=== PATIENT | male | born 1950 | race Caucasian/White ===

== ENCOUNTER → 2019-10-04 10:10 | Outpatient (BNVA) | payer MEDICARE, MEDICAID, SELFPAY | PROVIDERS: Family Provider Nurse Practitioner Family; PCP Nurse Practitioner Family; Visit Provider Orthopaedic Surgery | DX: M25.569 Pain in unspecified knee (principal); G89.29 Other chronic pain | CPT/HCPCS: 73560; 73565; 84550 ==

== ENCOUNTER → 2019-10-29 11:28 | Outpatient (BNVA) | payer MEDICARE, MEDICAID, SELFPAY | PROVIDERS: Family Provider Nurse Practitioner Family; PCP Nurse Practitioner Family; Referring Provider Nurse Practitioner Family; Visit Provider Internal Medicine Rheumatology | DX: M45.9 Ankylosing spondylitis of unspecified sites in spine (principal); Z79.899 Other long term (current) drug therapy; M10.9 Gout, unspecified; M15.9 Polyosteoarthritis, unspecified | CPT/HCPCS: 99213 ==

== ENCOUNTER → 2020-02-04 13:16 | Outpatient (BNVA) | payer MEDICARE, MEDICAID, SELFPAY | PROVIDERS: Family Provider Nurse Practitioner Family; PCP Nurse Practitioner Family; Visit Provider Internal Medicine Rheumatology | DX: Z79.899 Other long term (current) drug therapy (principal); Z11.59 Encounter for screening for other viral diseases; Z72.89 Other problems related to lifestyle | CPT/HCPCS: 36415; 80076; 82565; 84550; 85025; 85651; 86140; 86704; 86803; 87340 ==

== ENCOUNTER → 2020-02-25 10:58 | Outpatient (BNVA) | payer MEDICARE, MEDICAID, SELFPAY | PROVIDERS: Family Provider Nurse Practitioner Family; PCP Nurse Practitioner Family; Visit Provider Specialist | DX: R20.0 Anesthesia of skin (principal); R20.2 Paresthesia of skin; F17.210 Nicotine dependence, cigarettes, uncomplicated | CPT/HCPCS: 95909 ==

== ENCOUNTER 2020-03-26 10:22 | Outpatient (CLI) | payer MEDICARE, MEDICAID, SELFPAY ==
--- NOTE | 2020-03-26 10:27 | USCV_ITS ---
Eloy Dyer Age: 69 Gender: M : 1950 Exam Date: 03/26/2020 10:38 Ordering Phys: Franky Elam MD (Andy) ([email or web address] [email or web address]) Technologist: Brenda Ruiz [place] [facility] [place]ication: CAROTID STENOSIS Risk Factors: Unknown Previous Vascular Surgery: R CEA, L CEA Right Brachial BP: / Left Brachial BP: / Right Left Velocity (cm/s) Spectral Plaque Velocity (cm/s) Spectral Plaque Syst/Diast Broadening Syst/Diast Broadening 59.70/ 9.20 Prox CCA 73.70 / 11.80 45.50/ 8.60 Mid CCA 73.70 / 11.80 45.60/ 9.10 Distal CCA 51.00 / 10.20 43.30/ 11.40 Prox ICA 66.40 / 13.40 59.30/ 17.00 Mid ICA 63.10 / 12.10 71.30/ 18.50 Distal ICA 55.40 / 15.70 275.50 ECA 112.60 1.57 ICA/CCA 0.90 Antegrade Vertebral Antegrade 37.40/ 7.80 cm/s 59.80/ 12.40 cm/s Tri Subclavian Tri 209.6 144.5 0 0 FINDINGS Minimal plaques bilaterally at the bifurcations and proximal internal carotid arteries Intimal thickening in the common carotid arteries bilaterally Antegrade flow in the vertebral arteries bilaterally Elevated Doppler velocities in the right external carotid and subclavian arteries CONCLUSIONS Minimal plaques at the bifurcations and proximal internal carotid arteries bilaterally. Elevated velocity in the right external carotid and subclavian arteries may suggest hemodynamically significant stenosis Consider CTA, to better evaluate the aortic arch vessels, if clinically indicated Compared to the study from 03/14/2019, the elevated velocity in the right subclavian artery appears to be new Dr Bryan Lee MD [facility] (Electronically Signed) Final Date: 26 March 2020 19:52 S
== END 2020-03-26 10:23 | disposition home or self-care (01) ==
LOC: RAD 10:24
PROVIDERS: PCP Nurse Practitioner Family; Visit Provider Internal Medicine Cardiovascular Disease
DX: I65.23 Occlusion and stenosis of bilateral carotid arteries (principal)
CPT/HCPCS: 93880

== ENCOUNTER 2020-04-16 07:10 | Outpatient (CLI) | payer MEDICARE, MEDICAID, SELFPAY ==
--- NOTE | 2020-04-16 07:20 | CT_ITS ---
WS: [id number] CT ABDOMEN AND PELVIS WITH AND WITHOUT CONTRAST HISTORY: RENAL CELL CANCER TECHNIQUE: Unenhanced 5 mm axial imaging first performed through the abdomen. Post contrast imaging t hrough the abdomen and pelvis. Oral contrast has not been provided. Sagittal and coronal reformats a re submitted. All CT scans at [facility] use at least one of these dose optimization tech niques: automated exposure control; mA and/or kV adjustment per patient size (includes targeted exams where dose is matched to clinical indication); or iterative reconstruction. CONTRAST: Omnipaque 300; 95 mL IV. DLP: 4456.76 mGy.cm COMPARISON: 06/14/2019 Lung bases are clear. Mild enlargement of the LEFT heart chambers. Dual lead pacer wires are noted in the RIGHT heart. No significant hiatal hernia. Liver and spleen are normal size. A few scattered splenic granulomata. Gallbladder is slightly contra cted without adjacent inflammation. Mild atrophy of the pancreas. There are several calcifications at the pancreatic head which may be related to prior pancreatitis. No interval change. No adrenal mass. Extensive atherosclerosis aorta and the mesenteric arteries. Heavy calcification continues into the common iliac arteries bilaterally. RIGHT kidney: Very mild cortical thinning of the RIGHT kidney. Too small to characterize hypodensitie s in the kidney seen best on the delayed imaging posteriorly. No mass or obstruction. There are a few vascular calcifications in the central pelvis. LEFT kidney: Very mild cortical thinning of the LEFT kidney. Vascular calcifications in the central p gael. There is a lobulated solid fat-containing mass from the inferior pole measuring 2.0 x 1.9 cm. Very minimal enhancement. No increase in size since the prior examination. Mass has decreased in size since the runoff examination from 2017. Bilateral history this mass is undergone cryoablation and is a known renal cell carcinoma. No adenopathy or ascites. Moderate fecal retention throughout the colon. The appendix is normal. Well-distended urinary bladder with no intraluminal filling defect. Advanced degenerative changes thr oughout the lumbar spine. RIGHT femoral bypass graft is identified proximally. CT/CT abdomen pelvis wo/w [id number] IMPRESSION: 1. Stable size of the exophytic fat-containing or necrotic mass in the inferio r pole LEFT kidney measuring 2.0 x 1.9 cm. By history this mass has undergone p rior cryoablation. Mass has decreased in size since 06/20/2017 evaluation. No pr ogression or new mass. 2. Extensive atherosclerosis aorta, mesenteric arteries and iliac arteries.
[2020-04-16 08:05] LABS: Blood Urea Nitrogen 17 mg/dL (8-23); Glomerular Filtration Rate 54.7 mL/min (90-130)
[2020-04-16] MEDS: iohexol 350 mg/mL 100 mL Btl IV (08:45)
== END 2020-04-16 07:11 | disposition home or self-care (01) ==
PROVIDERS: PCP Nurse Practitioner Family; Visit Provider Urology
DX: C64.9 Malignant neoplasm of unspecified kidney, except renal pelvis (principal); N28.89 Other specified disorders of kidney and ureter; I70.0 Atherosclerosis of aorta; K55.1 Chronic vascular disorders of intestine; I70.8 Atherosclerosis of other arteries; R97.20 Elevated prostate specific antigen [PSA]
CPT/HCPCS: 36415; 74178; 81001; 82565; 84153; 84520

== ENCOUNTER → 2020-05-28 13:01 | Outpatient (BNVA) | payer MEDICARE, MEDICAID, SELFPAY | PROVIDERS: PCP Nurse Practitioner Family; Visit Provider Internal Medicine Rheumatology | DX: Z79.899 Other long term (current) drug therapy (principal) | CPT/HCPCS: 36415; 80076; 82565; 85025; 85651; 86140 ==

== ENCOUNTER → 2020-06-02 10:39 | Outpatient (BNVA) | payer MEDICARE, MEDICAID, SELFPAY | PROVIDERS: PCP Nurse Practitioner Family; Visit Provider Internal Medicine Rheumatology | DX: M45.9 Ankylosing spondylitis of unspecified sites in spine (principal); Z79.899 Other long term (current) drug therapy; Z15.89 Genetic susceptibility to other disease; N28.89 Other specified disorders of kidney and ureter; G56.00 Carpal tunnel syndrome, unspecified upper limb; F17.210 Nicotine dependence, cigarettes, uncomplicated | CPT/HCPCS: 99214 ==

== ENCOUNTER → 2020-07-08 10:55 | Outpatient (BNVA) | payer MEDICARE, MEDICAID, SELFPAY | PROVIDERS: PCP Nurse Practitioner Family; Referring Provider Nurse Practitioner Family; Visit Provider Specialist | DX: M25.522 Pain in left elbow (principal) | CPT/HCPCS: 73080 ==

== ENCOUNTER → 2020-07-15 10:23 | Outpatient (BNVA) | payer MEDICARE, MEDICAID, SELFPAY | PROVIDERS: PCP Nurse Practitioner Family; Visit Provider Internal Medicine | DX: Z01.818 Encounter for other preprocedural examination (principal) | CPT/HCPCS: 87635 ==

== ENCOUNTER 2020-07-20 08:21 | Day surgery (SDC) | payer MEDICARE, MEDICAID, SELFPAY ==
[2020-07-14 12:08] VITALS: BMI 31.4
[2020-07-20 08:36] VITALS: BP 183/87; PULSE 67; RESP 18; TEMP 36.3; O2SAT 98
--- NOTE | 2020-07-20 08:50 | ANES.PREANE2 ---
Pre-Anesthetic Assessment Pre-Anesthetic Assessment: Height/Weight: Height 1.8 m Weight 102.058 kg Temp Pulse Resp BP Pulse Ox 97.3 F L 67 18 183/87 98 07/20/20 08:36 07/20/20 08:36 07/20/20 08:36 07/20/20 08:36 07/20/20 08:36 Preop Diagnosis: polyposis Proposed Procedure: Operation Date: 07/20/20 09:30 Proposed Procedures p Colonoscopy 94685 K63.5(Not Applicable) - Jace Sousa MD Familial anesthetic complications: denies Was Beta Clarence taken within 24 hours: N/A Last intake: Intake Last Liquid Date 07/20/20 Last Liquid Time 01:00 Last Solid Date 07/18/20 Last Intake: 01:00 (drining water @ 1:00 am) Social: Social History: Alcohol (occasionally ) and Tobacco Packs per day: 1/2 Pack years: 50 years Exam: Pre-Anes Outpt Exam: alert, oriented x 3 and clear to auscultation bilaterally Pulmonary: Pulmonary: COPD, Cough (in the mornings ) and Sleep apnea (CPAP) CV/HEM: CV/HEM: Arrythmia (pacemaker placed two years ago ), HTN and FL ([address] 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 ) : Comments: kidney cancer two years ago Hepatic: Hepatic: None reported GI: GI: None reported Metabolic: Metabolic: DM (diet controlled ) and Morbid obesity Musc/skel: Musc/skel: OA/DJD (ankolizing spondylosis ) Neuropsych: Neuropsych: None reported Anesthetic Plan: ASA status: 2 Anesthesia: Anesthesia Evaluation and MAC PFSH Anesthesia PFSH: Medical History (Updated 07/09/20 @ 09:01 by Natividad Das MD) Ankylosing spondylitis Atherosclerosis of redding coronary artery of redding heart without angina pectoris Atrial fibrillation Benign essential HTN Carotid stenosis CHF (congestive heart failure) CKD (chronic kidney disease) Diabetes mellitus type 2, diet-controlled Displacement of femoral arterial bypass graft Elevated PSA Erectile dysfunction Gout, arthritis H/O renal cell cancer High risk medication use 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 History of pacemaker HLA B27 (HLA B27 positive) Hyperlipidemia Hypertension Immunization counseling Immunosuppression Localized osteoarthritis of left knee Pacemaker PAD (peripheral artery disease) history of right superficial femoral artery bypass PSA elevation Surgical History H/O heart surgery History of back surgery History of carotid endarterectomy History of elbow surgery History of permanent cardiac pacemaker placement History of shoulder surgery left Family History Father , AT AGE 80 CAD (coronary artery disease) Family history of premature coronary artery disease Dementia Brother Family history of premature coronary artery disease Dementia Diabetes Sister Cancer oldest Sister Cancer youngest Mother , AT AGE 84 Dementia Denies family history of Clotting disorder Hyperlipidemia Psychiatric illness Chronic kidney disease (CKD) Suicide Anesthesia complication Bleeding disorder Lung disease Hypertension Stroke Social History Smoking and tobacco status: current every day smoker Second hand smoke exposure: Yes Alcohol intake: current Alcohol intake frequency: few times a month Alcohol type: beer Lives independently: No Household members: spouse Marital status: Current occupational status: retired History of recent travel: No Data Anesthesia Cardiac Studies: No Data to Display
[2020-07-20] MEDS: sodium chloride 0.9% 1,000 ML 30 ML IV (08:57)
--- NOTE | 2020-07-20 10:11 | W.PM.OPSUD ---
Surgery/Procedure H&P Update DATE OF PROCEDURE: July 20, 2020 DATE H&P PERFORMED: 07/01/20 PREOP DIAGNOSIS: polyposis PLANNED PROCEDURE: Operation Date: 07/20/20 09:30 Proposed Procedures p Colonoscopy 47170 K63.5(Not Applicable) - Jace Sousa MD
[2020-07-20 11:15] VITALS: BP 118/68; PULSE 74; RESP 18; TEMP 36.9; O2SAT 100
[2020-07-20 11:49] VITALS: BP 133/64; PULSE 67; RESP 18; O2SAT 97
--- NOTE | 2020-07-20 12:15 | ANE.PACU2 ---
Inpatient post-anesthesia follow up: Airway intact: Yes Vital signs: Temperature 98.5 F Pulse Rate 67 Respiratory Rate 18 Blood Pressure 133/64 Pulse Oximetry 97 Oxygen Delivery Me thod Room Air Oxygen Flow Rate 2 Fraction of Inspir ed Oxygen Hydration adequate: Yes Nausea and vomiting: No Pain level: 1 Mental status: Baseline
== END 2020-07-20 12:15 | disposition home or self-care (01) ==
PROVIDERS: PCP Nurse Practitioner Family; Visit Provider Internal Medicine
PROC: 0DJD8ZZ Inspection of Lower Intestinal Tract, Via Natural or Artificial Opening Endoscopic (ICD-10-PCS; CPT 45378; principal; 2020-07-20 09:30)
DX: D12.2 Benign neoplasm of ascending colon (principal); D12.4 Benign neoplasm of descending colon; D12.3 Benign neoplasm of transverse colon; Z86.010 Personal history of colon polyps; J44.9 Chronic obstructive pulmonary disease, unspecified; I25.2 Old myocardial infarction; M19.90 Unspecified osteoarthritis, unspecified site; E11.22 Type 2 diabetes mellitus with diabetic chronic kidney disease; I13.0 Hypertensive heart and chronic kidney disease with heart failure and stage 1 through stage 4 chronic kidney disease, or unspecified chronic kidney disease; N18.9 Chronic kidney disease, unspecified; I50.9 Heart failure, unspecified; E78.5 Hyperlipidemia, unspecified; Z95.1 Presence of aortocoronary bypass graft; Z82.49 Family history of ischemic heart disease and other diseases of the circulatory system; F17.210 Nicotine dependence, cigarettes, uncomplicated
CPT/HCPCS: 12345; 45380; 45385; 88305; J2704; J3010; J7030

== ENCOUNTER → 2020-08-27 10:01 | Outpatient (BNVA) | payer MEDICARE, MEDICAID, SELFPAY | PROVIDERS: PCP Nurse Practitioner Family; Referring Provider Nurse Practitioner Family; Visit Provider Orthopaedic Surgery | DX: S62.605A Fracture of unspecified phalanx of left ring finger, initial encounter for closed fracture (principal); X58.XXXA Exposure to other specified factors, initial encounter | CPT/HCPCS: 73140 ==

== ENCOUNTER → 2020-09-02 08:51 | Outpatient (BNVA) | payer MEDICARE, MEDICAID, SELFPAY | PROVIDERS: PCP Nurse Practitioner Family; Visit Provider Internal Medicine Rheumatology | DX: Z79.899 Other long term (current) drug therapy (principal) | CPT/HCPCS: 36415; 80076; 82565; 85025; 85651; 86140 ==

== ENCOUNTER 2020-10-20 09:08 | Outpatient (CLI) | payer MEDICARE, MEDICAID, SELFPAY ==
--- NOTE | 2020-10-20 09:30 | US_ITS ---
WS: [id number] ULTRASOUND RENAL TECHNIQUE: Ultrasound examination of both kidneys. CLINICAL INFORMATION: RENAL MASS COMPARISON: CT April 16, 2020 FINDINGS: History of renal lesion ablation. Previously described area lower pole left kidney not curr ently seen on today's examination. RIGHT: Right kidney is normal in size and appearance. Echogenicity: Normal. Cortical thickness: 1.2 cm; Normal. Hydronephrosis: None. Perinephric fluid: None. Right kidney measures: 9.0 cm x 5.1 cm x 5.4 cm. LEFT: Left kidney is normal in size and appearance. Echogenicity: Normal. Cortical thickness: 1.6 cm; Normal. Hydronephrosis: None. Perinephric fluid: None. Left kidney measures: 9.5 cm x 4.5 cm x 5.6 cm. Normal visualized aorta. US/US renal BI* [id number] IMPRESSION: 1. Previously described area of cryoablation lower pole left kidney not curren tly seen on today's examination. 2. Exam otherwise unremarkable.
== END 2020-10-20 09:09 | disposition home or self-care (01) ==
LOC: US 09:09
PROVIDERS: PCP Nurse Practitioner Family; Visit Provider Urology
DX: N28.89 Other specified disorders of kidney and ureter (principal); R97.20 Elevated prostate specific antigen [PSA]
CPT/HCPCS: 76770; 81003; 84153

== ENCOUNTER → 2021-01-11 13:07 | Outpatient (BNVA) | payer MEDICARE, MEDICAID, SELFPAY | PROVIDERS: PCP Nurse Practitioner Family; Visit Provider Internal Medicine Rheumatology | DX: M45.0 Ankylosing spondylitis of multiple sites in spine (principal); Z79.899 Other long term (current) drug therapy; Z11.1 Encounter for screening for respiratory tuberculosis | CPT/HCPCS: 36415; 80076; 82565; 85025; 86140; 86480 ==

== ENCOUNTER 2021-01-12 11:59 | Outpatient (CLI) | payer MEDICARE, MEDICAID, SELFPAY ==
--- NOTE | 2021-01-12 12:45 | USCV_ITS ---
Eloy Dyer Age: 70 Gender: M : 1950 Exam Date: 01/12/2021 12:09 Ordering Phys: Bryan Lee MD ([email or web address]) Technologist: Haley Blanchard Exam Location: [facility] [place] Indication: RECHECK L AND R CEA Risk Factors: Unknown Previous Vascular Surgery: R CEA, L CEA Right Brachial BP: / Left Brachial BP: / Right Left Velocity (cm/s) Spectral Plaque Velocity (cm/s) Spectral Plaque Syst/Diast Broadening Syst/Diast Broadening 50.80/ 21.00 Prox CCA 62.10 / 15.00 39.30/ 12.20 Mid CCA 67.40 / 17.10 43.30/ 12.90 Distal CCA 58.90 / 16.10 57.90/ 14.90 Prox ICA 65.50 / 20.30 57.10/ 19.50 Mid ICA 63.80 / 23.90 60.50/ 19.50 Distal ICA 51.20 / 17.30 142.20 ECA 138.10 1.19 ICA/CCA 0.97 Antegrade Vertebral Antegrade 29.70/ 8.70 cm/s 32.40/ 12.90 cm/s Bi Subclavian Tri 95.90 61.50 FINDINGS Mild to moderate plaques at the bifurcations bilaterally Intimal thickening and minimal plaques in the common carotid arteries bilaterally Antegrade flow in the vertebral arteries bilaterally Normal Doppler flow velocities in the external carotid and subclavian arteries bilaterally CONCLUSIONS Mild to moderate plaques at the bifurcations bilaterally, suggesting less than 50% stenosis Intimal thickening and minimal plaques in the common carotid arteries bilaterally. Compared to the previous study on 03/26/2020, the Doppler velocities in the right external carotid and subclavian arteries are significantly reduced, possible related to the change in hemodynamics Dr Bryan Lee MD [facility] (Electronically Signed) Final Date: 13 January 2021 19:33 S
== END 2021-01-12 12:00 | disposition home or self-care (01) ==
LOC: US 12:00
PROVIDERS: PCP Nurse Practitioner Family; Visit Provider Internal Medicine Cardiovascular Disease
DX: I65.23 Occlusion and stenosis of bilateral carotid arteries
CPT/HCPCS: 93880

== ENCOUNTER → 2021-01-21 13:36 | Outpatient (BNVA) | payer MEDICARE, MEDICAID, SELFPAY | PROVIDERS: PCP Nurse Practitioner Family; Visit Provider Internal Medicine Rheumatology | DX: M45.0 Ankylosing spondylitis of multiple sites in spine (principal); Z79.899 Other long term (current) drug therapy; M17.0 Bilateral primary osteoarthritis of knee; M10.9 Gout, unspecified; N18.9 Chronic kidney disease, unspecified; Z89.421 Acquired absence of other right toe(s); Z89.411 Acquired absence of right great toe; F17.210 Nicotine dependence, cigarettes, uncomplicated | CPT/HCPCS: 99214 ==

== ENCOUNTER → 2021-02-03 12:47 | Outpatient (BNVA) | payer MEDICARE, MEDICAID, SELFPAY | PROVIDERS: PCP Nurse Practitioner Family; Referring Provider Specialist; Visit Provider Specialist | DX: G56.21 Lesion of ulnar nerve, right upper limb (principal); G56.01 Carpal tunnel syndrome, right upper limb; F17.210 Nicotine dependence, cigarettes, uncomplicated | CPT/HCPCS: 99203 ==

== ENCOUNTER → 2021-02-23 15:45 | Outpatient (BNVA) | payer MEDICARE, MEDICAID, SELFPAY | PROVIDERS: PCP Nurse Practitioner Family; Visit Provider Internal Medicine Rheumatology | DX: M17.12 Unilateral primary osteoarthritis, left knee (principal); M45.0 Ankylosing spondylitis of multiple sites in spine; F17.210 Nicotine dependence, cigarettes, uncomplicated | CPT/HCPCS: 20610; J1030 ==

== ENCOUNTER → 2021-03-05 15:49 | Outpatient (BNVA) | payer MEDICARE, MEDICAID, SELFPAY | PROVIDERS: PCP Nurse Practitioner Family; Visit Provider Orthopaedic Surgery | DX: Z20.822 Contact with and (suspected) exposure to COVID-19 (principal) | CPT/HCPCS: 87635 ==

== ENCOUNTER 2021-03-11 05:47 | Day surgery (SDC) | payer MEDICARE, MEDICAID, SELFPAY ==
[2021-03-10 12:30] VITALS: BMI 33.7
[2021-03-11 06:27] VITALS: BP 114/74; PULSE 105; RESP 18; TEMP 36.3; O2SAT 96
[2021-03-11] MEDS: sodium chloride 0.9% 1,000 ML 30 ML IV (06:44)
--- NOTE | 2021-03-11 07:07 | ANES.PREANE2 ---
Pre-Anesthetic Assessment Pre-Anesthetic Assessment: Height/Weight: Height 1.78 m Weight 106.594 kg Temp Pulse Resp BP Pulse Ox 97.3 F L 105 H 18 114/74 96 03/11/21 06:27 03/11/21 06:27 03/11/21 06:27 03/11/21 06:27 03/11/21 06:27 Preop Diagnosis: Cubital tunnel syndrome/carpal tunnel syndrome left arm Proposed Procedure: Operation Date: 03/11/21 07:00 Proposed Procedures p Carpal Tunnel Release [id number] 83002 G56.01 G56.21(Right) - London Chirinos MD s Ulna Nerve Decompression versus transpostition(Right) - London Chirinos MD Was Beta Clarence taken within 24 hours: Yes Was Clonidine taken within 24 hours: N/A Last intake: Intake Last Liquid Date 03/10/21 Last Liquid Time 23:00 Last Solid Date 03/10/21 Last Solid Time 23:00 Social: Social History: Tobacco and No alcohol Exam: Pre-Anes Outpt Exam: alert, oriented x 3 and regular rate & rhythm Airway: Submandibular: WNL Cervical ROM: WNL MP: 2 Dentition: False Pulmonary: Pulmonary: COPD CV/HEM: CV/HEM: Afib, CAD, CHF, HTN and PVD Metabolic: Metabolic: Morbid obesity Anesthetic Plan: ASA status: 3 Anesthesia: General Risk of > 500 ml blood loss (7ml/kg in children): No Meds/Allergies Current Medications: Current Medications Generic Name Dose Route Start Last Admin Trade Name Freq PRN Reason Stop Dose Admin Sodium Chloride 1,000 mls @ 30 ml s/hr 03/11/21 06:45 03/11/21 06:44 Sodium Chloride 0.9% IV 03/12/21 06:44 30 mls/hr .Q24H RADHA Administration PFSH Anesthesia PFSH: Medical History Ankylosing spondylitis Atherosclerosis of [place] coronary artery of [place] heart without angina pectoris Atrial fibrillation Benign essential HTN Carotid stenosis CHF (congestive heart failure) CKD (chronic kidney disease) Diabetes mellitus type 2, diet-controlled Displacement of femoral arterial bypass graft Elevated PSA Erectile dysfunction Gout, arthritis H/O renal cell cancer High risk medication use High risk medication use 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 History of pacemaker HLA B27 (HLA B27 positive) Hyperlipidemia Hypertension Immunization counseling Immunosuppression Localized osteoarthritis of left knee Osteoarthritis of knees, bilateral Pacemaker PAD (peripheral artery disease) history of right superficial femoral artery bypass PSA elevation Surgical History H/O heart surgery History of back surgery History of carotid endarterectomy History of elbow surgery History of permanent cardiac pacemaker placement History of shoulder surgery left Family History Father , AT AGE 80 CAD (coronary artery disease) Family history of premature coronary artery disease Dementia Brother Family history of premature coronary artery disease Dementia Diabetes Sister Cancer oldest Sister Cancer youngest Mother , AT AGE 84 Dementia Denies family history of Clotting disorder Hyperlipidemia Psychiatric illness Chronic kidney disease (CKD) Suicide Anesthesia complication Bleeding disorder Lung disease Hypertension Stroke Social History Smoking and tobacco status: current every day smoker cigarettes Packs smoked per day: 1 Second hand smoke exposure: Yes Alcohol intake: current Alcohol intake frequency: few times a week Alcohol type: beer Lives independently: No Household members: spouse Marital status: Current occupational status: retired History of recent travel: No Data Anesthesia Cardiac Studies: No Data to Display
--- NOTE | 2021-03-11 07:15 | W.PM.OPSUD ---
Surgery/Procedure H&P Update DATE OF PROCEDURE: March 11, 2021 DATE H&P PERFORMED: 02/16/21 H&P UPDATE INFORMATION: I have reviewed H&P completed within last 30 days, I have examined patient prior to procedure and No changes to prior documentation PREOP DIAGNOSIS: Cubital tunnel syndrome/carpal tunnel syndrome left arm PRIMARY INDICATION FOR PROCEDURE: The patient has numbness and paresthesias into his right arm. EMG nerve conduction studies suggested ulnar neuropathy at the elbow as well as some component of carpal tunnel syndrome. The patient has degenerative changes elbow as well however it is felt that the distal paresthesias and pain are most consistent with a compressive neuropathy. PLANNED PROCEDURE: Operation Date: 03/11/21 07:00 Proposed Procedures p Carpal Tunnel Release [id number] 93950 G56.01 G56.21(Right) - London Chirinos MD s Ulna Nerve Decompression versus transpostition(Right) - London Chirinos MD
--- NOTE | 2021-03-11 08:36 | PM.OP ---
Operative Report Date of procedure: March 11, 2021 Pre-op Diagnosis: Cubital tunnel syndrome/carpal tunnel syndrome right arm Post-op diagnosis: same Post-op Findings: Same Procedure Done: Right ulnar nerve transposition, right carpal tunnel release Pathology: none sent Anesthesia: General Estimated blood loss (mL): 20 Tourniquet time (min): 32 Complications: None Findings: Patient had dense scar tissue behind the medial epicondyle tethering the nerve. No masses or space-occupying lesions are seen within the carpal tunnel Condition: stable Disposition: PACU Procedure: The patient was taken to the operating room and given a general anesthesia. A tourniquet was inflated to 225 mmHg. A timeout was performed. A 5 cm long incision was made behind the medial epicondyle. Dissection was accomplished bluntly under loupe magnification identifying the ulnar nerve proximally. The nerve itself was embedded in dense scar tissue behind the medial epicondyle. It was mobilized with a vein loop. Utilizing a hemostat the fascia over the nerve was elevated and incised proximally. Dissection was then carried distally behind the medial epicondyle and into the flexor carpi ulnaris musculature. Dissection was stopped with the first muscular branches identified. At the conclusion of the release the nerve was unstable behind the medial epicondyle. A 1 cm section of distal intermuscular septum was removed. A fascial flap was made in the flexor pronator musculature based medially and the nerve transposed up into this groove. The fascia with a sutured to the anterior subcutaneous fat creating a soft tissue loop for the nerve. 10 cc of half percent Marcaine was infiltrated into the skin edges. The wound was packed with a moist saline spoke sponge as attention was focused on the carpal tunnel. A 3 cm long incision was made in line with the fourth ray from the distal edge of the carpal tunnel extending proximally. The subcutaneous fat and palmar fascia was divided with a scalpel blade. Under loupe magnification the ulnar neurovascular bundle was identified distally. A hemostat could be passed under the transverse carpal ligament allowing the distal 25% to be divided. A slotted guide was then passed beneath the transverse carpal ligament and the middle 50% divided. Blunt scissors were then passed over the guide freeing the proximal ligament. The tourniquet was deflated. Hemostasis provided with electrocautery. Wound edges were infiltrated with 10 cc of a half percent Marcaine solution. Skin edges were reapproximated with 3-0 Prolene. Sterile dressings were applied. The patient was taken to the recovery room in stable condition Hemostasis was then provided with bipolar cautery over the medial elbow incision. Deep tissues were closed with 2-0 Vicryl. Subcutaneous is closed with 3-0 Vicryl. The skin was closed with a running 3-0 Prolene. Steri-Strips were applied. Xeroform gauze, 4 x 4's, compressive labral, and Suraj wrap, and a sling were applied. The patient was taken recovery room in stable condition.
[2021-03-11 08:41] VITALS: BP 113/88; PULSE 102; RESP 20; TEMP 36.2; O2SAT 97
[2021-03-11 08:45] VITALS: BP 131/86; PULSE 103; RESP 18; O2SAT 99
[2021-03-11 08:50] VITALS: BP 130/80; PULSE 103; RESP 18; TEMP 36.4; O2SAT 97
[2021-03-11 08:55] VITALS: BP 115/77; PULSE 102; RESP 17; TEMP 36.4; O2SAT 95
[2021-03-11 08:59] VITALS: BP 118/95; PULSE 104; RESP 17; TEMP 36.4; O2SAT 95
--- NOTE | 2021-03-11 13:31 | ANE.PACU2 ---
Inpatient post-anesthesia follow up: Airway intact: Yes Vital signs: Temperature 97.6 F Pulse Rate 104 Respiratory Rate 17 Blood Pressure 118/95 Pulse Oximetry 95 Oxygen Delivery Me thod Room Air Oxygen Flow Rate 8 Fraction of Inspir ed Oxygen Hydration adequate: Yes Nausea and vomiting: No Pain level: 1 Mental status: Baseline
== END 2021-03-11 09:30 | disposition home or self-care (01) ==
PROVIDERS: PCP Nurse Practitioner Family; Visit Provider Orthopaedic Surgery
PROC: (CPT 64721; principal; 2021-03-11 07:00)
PROC: (CPT 64718; 2021-03-11 07:00)
DX: G56.21 Lesion of ulnar nerve, right upper limb (principal); G56.01 Carpal tunnel syndrome, right upper limb; J44.9 Chronic obstructive pulmonary disease, unspecified; I48.91 Unspecified atrial fibrillation; E11.22 Type 2 diabetes mellitus with diabetic chronic kidney disease; I13.0 Hypertensive heart and chronic kidney disease with heart failure and stage 1 through stage 4 chronic kidney disease, or unspecified chronic kidney disease; N18.9 Chronic kidney disease, unspecified; I50.9 Heart failure, unspecified; I25.10 Atherosclerotic heart disease of native coronary artery without angina pectoris; E66.01 Morbid (severe) obesity due to excess calories; Z68.33 Body mass index [BMI] 33.0-33.9, adult; Z95.0 Presence of cardiac pacemaker; E78.5 Hyperlipidemia, unspecified; F17.210 Nicotine dependence, cigarettes, uncomplicated
CPT/HCPCS: 64718; 64721; J0690; J1100; J1885; J2270; J2405; J3010; J3490; J7030

== ENCOUNTER → 2021-04-28 13:00 | Outpatient (BNVA) | payer MEDICARE, MEDICAID, SELFPAY | PROVIDERS: PCP Nurse Practitioner Family; Visit Provider Internal Medicine Rheumatology | DX: M17.0 Bilateral primary osteoarthritis of knee (principal); M19.021 Primary osteoarthritis, right elbow; Z71.89 Other specified counseling; Z79.899 Other long term (current) drug therapy | CPT/HCPCS: 36415; 80076; 82565; 85025; 86140 ==

== ENCOUNTER → 2021-05-05 12:54 | Outpatient (BNVA) | payer MEDICARE, MEDICAID, SELFPAY | PROVIDERS: PCP Nurse Practitioner Family; Visit Provider Internal Medicine Rheumatology | DX: M45.0 Ankylosing spondylitis of multiple sites in spine (principal); Z79.899 Other long term (current) drug therapy; Z71.89 Other specified counseling; M17.0 Bilateral primary osteoarthritis of knee; M10.9 Gout, unspecified; C64.2 Malignant neoplasm of left kidney, except renal pelvis; N18.9 Chronic kidney disease, unspecified; Z89.411 Acquired absence of right great toe; Z89.421 Acquired absence of other right toe(s); F17.210 Nicotine dependence, cigarettes, uncomplicated | CPT/HCPCS: 99214 ==

== ENCOUNTER 2021-08-05 09:46 | Outpatient (CLI) | payer MEDICARE, MEDICAID, SELFPAY ==
--- NOTE | 2021-08-05 09:57 | US_ITS ---
WS: [id number] THYROID ULTRASOUND HISTORY: NONTOXIC SINGLE THYROID NODULE COMPARISON: 09/05/2019 Right lobe: 1.5 cm x 1.6 cm x 5.3 cm (w x ap x l). Volume: 7.0 cm3. Normal size gland. Mild coarsened echotexture but no nodule or suspicious calcifications. No adenopat hy. Left lobe: 2.0 cm x 1.9 cm x 4.7 cm (w x ap x l). Volume: 9.4 cm3. Very minimally prominent gland. Again noted is a complex cystic nodule in the superior gland measurin g 6 x 7 x 7 mm. No increase in size. No calcifications. Benign cervical chain lymph nodes. Isthmus: 0.7 cm. US/US thyroid [id number] IMPRESSION: Stable complex cystic nodule superior pole LEFT thyroid. Yearly evaluation by u melitonasound recommended.
== END 2021-08-05 09:47 | disposition home or self-care (01) ==
LOC: RAD 09:49
PROVIDERS: PCP Nurse Practitioner Family; Visit Provider Nurse Practitioner Family
DX: E04.1 Nontoxic single thyroid nodule (principal)
CPT/HCPCS: 76536

== ENCOUNTER 2021-08-05 10:30 | Outpatient (CLI) | payer MEDICARE, MEDICAID, SELFPAY ==
[2021-08-05 10:50] LABS: Basophils # 0.1 10^3/uL (0.0-0.1); Basophils % 0.8 %; Eosinophils # 0.1 10^3/uL (0.0-0.8); Eosinophils % 0.9 %; Hematocrit 41.8 % (42.0-52.0); Hemoglobin 13.5 g/dL (11.7-16.6); Lymphocytes % 27.2 %; Mean Corpuscular HGB Conc 32.3 g/dL (30.0-36.0); Mean Corpuscular Hemoglobin 31.5 pg (28.0-34.0); Mean Corpuscular Volume 97.7 fl (80-94); Monocytes # 0.7 10^3/uL (0.2-0.9); Monocytes % 8.8 %; Neutrophils % 61.4 %; Nucleated Red Blood Cells % 0 %; Platelet Count 293 10^3/cmm (130-400); Red Blood Count 4.28 10^6/uL (4.1-5.3); White Blood Count 7.5 10^3/uL (4.0-10.0)
[2021-08-05 11:24] LABS: Alanine Aminotransferase 43 U/L (0-41); Albumin Level 3.5 g/dL (3.5-5.2); Alkaline Phosphatase 108 IU/L (40-130); Aspartate Amino Transferase 40 U/L (0-40); C Reactive Protein 4.7 mg/L (0.0-4.9); Globulin 2.5 g/dL (1.3-4.6); Total Bilirubin 0.3 mg/dL (0.15-1.2); Uric Acid 3.6 mg/dL (3.4-7.0)
== END 2021-08-05 10:31 | disposition home or self-care (01) ==
PROVIDERS: PCP Nurse Practitioner Family; Visit Provider Internal Medicine Rheumatology
DX: M45.0 Ankylosing spondylitis of multiple sites in spine (principal); Z79.899 Other long term (current) drug therapy; M19.90 Unspecified osteoarthritis, unspecified site
CPT/HCPCS: 36415; 80076; 82565; 84550; 85025; 86140

== ENCOUNTER → 2021-10-18 10:32 | Outpatient (BNVA) | payer MEDICARE, MEDICAID, SELFPAY | PROVIDERS: PCP Nurse Practitioner Family; Visit Provider Internal Medicine Rheumatology | DX: M46.90 Unspecified inflammatory spondylopathy, site unspecified (principal); Z15.89 Genetic susceptibility to other disease; Z79.899 Other long term (current) drug therapy; Z71.89 Other specified counseling; M17.0 Bilateral primary osteoarthritis of knee; M45.0 Ankylosing spondylitis of multiple sites in spine; Z77.22 Contact with and (suspected) exposure to environmental tobacco smoke (acute) (chronic); C64.2 Malignant neoplasm of left kidney, except renal pelvis; Z89.411 Acquired absence of right great toe; Z89.421 Acquired absence of other right toe(s); M25.551 Pain in right hip; M16.11 Unilateral primary osteoarthritis, right hip | CPT/HCPCS: 73502; 99214 ==

== ENCOUNTER 2021-10-18 12:28 | Outpatient (CLI) | payer MEDICARE, MEDICAID, SELFPAY ==
--- NOTE | 2021-10-18 12:38 | XR_ITS ---
WS: [id number] HIP WITH PELVIS RIGHT TECHNIQUE: 3 views of the right hip with pelvis CLINICAL INFORMATION: M25.559 - Pain in unspecified hip COMPARISON: None. FINDINGS: Moderate to advanced degenerative arthritis right hip with joint space narrowing. Normal femoral neck and proximal femur no acute fractures. Normal right pubic rami. Vascular calcification. Femoral stents with right femoral bypass XR/XR hip RT 2-3V wo/w pel* [id number] IMPRESSION: Moderate to advanced degenerative arthritis right hip with joint space narrowin g. No acute fractures. Tonnis classification: grade 2: small cysts in femoral head/acetabulum or moder ate joint space narrowing or moderate loss of head sphericity
== END 2021-10-18 12:29 | disposition home or self-care (01) ==
LOC: RAD 12:31
PROVIDERS: PCP Nurse Practitioner Family; Visit Provider Internal Medicine Rheumatology
DX: M25.551 Pain in right hip (principal); M16.11 Unilateral primary osteoarthritis, right hip
CPT/HCPCS: 73502

== ENCOUNTER 2021-10-19 09:00 | Outpatient (CLI) | payer MEDICARE, MEDICAID, SELFPAY ==
--- NOTE | 2021-10-19 09:30 | US_ITS ---
WS: [id number] RENAL ULTRASOUND HISTORY: LEFT RENAL MASS, history of cryoablation. COMPARISON: 10/20/2020. TECHNIQUE: 2-D and color Doppler imaging of the kidney submitted. Right kidney: 9.4 cm x 5.4 cm x 4.7 cm. Normal echogenicity with no hydronephrosis or mass. Left kidney: 8.8 cm x 4.6 cm x 5.3 cm. Visualization of the entire kidney is limited. Mildly atrophied kidney. No hydronephrosis. Slight inc reased echogenicity. No mass identified. Cortex measures just over 1 cm. Aorta: Not visualized. Urinary Bladder: Mildly distended. US/US renal BI* [id number] IMPRESSION: 1. No solid renal mass or obstruction. 2. Area of cryoablation in the LEFT kidney is not identified. No solid mass id entified by ultrasound. The entire LEFT kidney is not well visualized due to ya dy habitus.
--- NOTE | 2021-10-19 10:15 | XR_ITS ---
WS: [id number] Chest 2 views, 10/19/2021 Clinical Data: LEFT RENAL MASS Comparison: Portable chest, 06/27/2018. Findings: No nodules, masses or effusions are seen. The heart is normal. The pulmonary vascularity is not increased. No pneumonia or pneumothorax is seen. The 2-lead cardiac pacemaker remains in good po sition. There is mild tortuosity of the aortic arch and descending thoracic aorta. XR/XR chest 2V* [id number] Impression: Atherosclerosis and cardiac pacemaker.
== END 2021-10-19 09:01 | disposition home or self-care (01) ==
LOC: RAD 09:20
PROVIDERS: PCP Nurse Practitioner Family; Visit Provider Urology
DX: N28.89 Other specified disorders of kidney and ureter (principal); R97.20 Elevated prostate specific antigen [PSA]; I70.90 Unspecified atherosclerosis; Z95.0 Presence of cardiac pacemaker
CPT/HCPCS: 71046; 76770; 80053; 81003; 84153; 85025

== ENCOUNTER → 2021-11-15 11:50 | Outpatient (BNVA) | payer MEDICARE, MEDICAID, SELFPAY | PROVIDERS: PCP Nurse Practitioner Family; Visit Provider Internal Medicine Cardiovascular Disease | DX: I10 Essential (primary) hypertension (principal); I77.9 Disorder of arteries and arterioles, unspecified; I65.23 Occlusion and stenosis of bilateral carotid arteries; I50.32 Chronic diastolic (congestive) heart failure; R06.02 Shortness of breath; I50.33 Acute on chronic diastolic (congestive) heart failure | CPT/HCPCS: 80048; 83880 ==

== ENCOUNTER → 2021-12-01 09:10 | Outpatient (BNVA) | payer MEDICARE, MEDICAID, SELFPAY | PROVIDERS: PCP Nurse Practitioner Family; Visit Provider Internal Medicine Cardiovascular Disease | DX: E78.2 Mixed hyperlipidemia (principal); R79.89 Other specified abnormal findings of blood chemistry; E78.5 Hyperlipidemia, unspecified | CPT/HCPCS: 80048; 83880 ==

== ENCOUNTER → 2021-12-15 14:12 | Outpatient (BNVA) | payer MEDICARE, MEDICAID, SELFPAY | PROVIDERS: PCP Nurse Practitioner Family; Visit Provider Internal Medicine Cardiovascular Disease | DX: I25.10 Atherosclerotic heart disease of native coronary artery without angina pectoris (principal); I48.11 Longstanding persistent atrial fibrillation; I50.32 Chronic diastolic (congestive) heart failure; I65.23 Occlusion and stenosis of bilateral carotid arteries; Z95.0 Presence of cardiac pacemaker; I48.91 Unspecified atrial fibrillation; I50.9 Heart failure, unspecified; Z51.81 Encounter for therapeutic drug level monitoring | CPT/HCPCS: 80048; 83880 ==

== ENCOUNTER → 2022-01-28 08:43 | Outpatient (BNVA) | payer MEDICARE, MEDICAID, SELFPAY | PROVIDERS: PCP Nurse Practitioner Family; Visit Provider Internal Medicine Cardiovascular Disease | DX: Z45.010 Encounter for checking and testing of cardiac pacemaker pulse generator [battery] (principal) | CPT/HCPCS: 93280 ==

== ENCOUNTER 2022-02-03 09:55 | Outpatient (CLI) | payer MEDICARE, MEDICAID, SELFPAY ==
[2022-02-03 10:23] VITALS: BMI 29.0
--- NOTE | 2022-02-03 10:27 | ECG_ITS ---
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 Interpretive Statements NAME OF STUDY: LEXISCAN SESTAMIBI STRESS TEST INDICATION: Chest Pain, PROCEDURE: At the baseline, the EKG revealed 100% V paced rhythm. The baseline blood pressure was 137/88 mm Hg with a heart rate of 104 beats/min. Lexiscan was infused over a period of 20 seconds. A total of 0.4 milligrams of Lexiscan was infused. The stress phase was continued for a total of 5 minutes. Heart rate at the end of the stress phase was 104 with a blood pressure 121/74. EKG at the peak infusion revealed no significant changes. Sestamibi was injected 20 seconds after the Lexiscan infusion. Blood pressure at the end of the recovery phase was 129/78 with a heart rate of 104 per minute. CONCLUSION: 1. The EKG changes of the Lexiscan infusion is uninterpretable due to the pacing artifact 2. No LexiScan induced chest pain or cardiac arrhythmia 3. Normal blood pressure and heart rate response 4. Sestamibi/sestamibi perfusion scan pending; see separate report. Electronically Signed On 02-03-2022 14:12:03 CDT by Bryan Lee M.D. [id number]
--- NOTE | 2022-02-03 10:27 | NMCV_ITS ---
NM jorge perf SPECT r/s* [id number] Eloy Dyer Age: 71 Gender: M : 1950 Exam Date: 02/03/2022 10:27 Ordering Phys: Bryan Lee MD ([email or web address]) Technologist: CATHY Villa Exam Location: [facility] Indications: SHORTNESS OF BREATH STRESS TEST Please see separate stress test report in Ephiphany for full findings IMAGE PROTOCOL Rest/Stress 1 Lexiscan Day Radiopharmaceutical Dose (mCi) Administration Site Administered by Rest: Tc-99m 11.0 IV CATHY Villa Sestamibi Stress:Tc-99m 32.8 IV CATHY Wilkes Sestamibi Rest: 03-Feb-2022 60 Discovery 630 Stress: 03-Feb-2022 30 Discovery 630 0.4mg Lexiscan. Images obtained in supine and prone position. SPECT RESULTS Technical Quality: Excellent Raw Data Analysis: Normal Image Corrections: No attenuation or motion correction applied Summed Stress Score: 21 Summed Rest Score: 23 Summed Difference Score: 0 PERFUSION FINDINGS Moderate to large area of severely decreased tracer uptake was noted in the basal, mid and apical inferior, mid inferoseptal, mid inferolateral, all the apical segments and LV apex. No significant reversibility was noted in these regions. FUNCTIONAL RESULTS (calculated via Gated SPECT) Stress Image LV EF (%): 40 Stress EDV (mL):173 TID: 0.99 Stress ESV (mL):103 FUNCTIONAL FINDINGS: Segmental wall motion analysis revealing diffuse hypokinesia of the LV apex and septum. IMPRESSIONS 1. Myocardial perfusion imaging revealing moderate large area of persistent decreased tracer uptake in the inferior, inferolateral, inferoseptal and apical segments suggesting myocardial scarring in the distribution of the right coronary artery predominantly with some involvement of the circumflex and left anterior descending artery. 2. Diminished LV ejection fraction of 40%. 3. Segmental wall motion analysis revealing severe diffuse hypokinesia of the septum and LV apex. 4. Moderately dilated LV cavity with an end-systolic volume of 103 mL No significant coronary ischemia, based on the above findings No similar previous studies are available for comparison Dr Bryan Lee MD [facility] (Electronically Signed) Final Date: 03 Feb 2022 17:13 S
[2022-02-03] MEDS: regadenoson 0.4 Mg/5 ml Syringe IVP (11:48)
[2022-02-03 11:59] VITALS: BP 129/78; PULSE 104
== END 2022-02-03 09:56 | disposition home or self-care (01) ==
LOC: CDL 10:00
PROVIDERS: PCP Nurse Practitioner Family; Visit Provider Internal Medicine Cardiovascular Disease
DX: R06.02 Shortness of breath (principal)
CPT/HCPCS: 78452; 93017; A9500; J2785

== ENCOUNTER → 2022-02-10 09:28 | Outpatient (BNVA) | payer MEDICARE, MEDICAID, SELFPAY | PROVIDERS: PCP Nurse Practitioner Family; Visit Provider Internal Medicine Rheumatology | DX: M46.90 Unspecified inflammatory spondylopathy, site unspecified (principal); Z15.89 Genetic susceptibility to other disease; M15.9 Polyosteoarthritis, unspecified; M10.9 Gout, unspecified; N18.9 Chronic kidney disease, unspecified; Z79.899 Other long term (current) drug therapy; I73.9 Peripheral vascular disease, unspecified; I25.10 Atherosclerotic heart disease of native coronary artery without angina pectoris; I65.29 Occlusion and stenosis of unspecified carotid artery; I48.91 Unspecified atrial fibrillation; E78.00 Pure hypercholesterolemia, unspecified; Z71.89 Other specified counseling | CPT/HCPCS: 99214 ==

== ENCOUNTER → 2022-05-18 09:23 | Outpatient (BNVA) | payer MEDICARE, MEDICAID, SELFPAY | PROVIDERS: PCP Registered Nurse; Visit Provider Internal Medicine Cardiovascular Disease | DX: I48.11 Longstanding persistent atrial fibrillation (principal); Z79.01 Long term (current) use of anticoagulants; I25.10 Atherosclerotic heart disease of native coronary artery without angina pectoris; I13.0 Hypertensive heart and chronic kidney disease with heart failure and stage 1 through stage 4 chronic kidney disease, or unspecified chronic kidney disease; N18.9 Chronic kidney disease, unspecified; I50.9 Heart failure, unspecified; Z95.0 Presence of cardiac pacemaker; E78.2 Mixed hyperlipidemia; I65.23 Occlusion and stenosis of bilateral carotid arteries | CPT/HCPCS: 99214 ==

== ENCOUNTER → 2022-05-24 13:03 | Outpatient (BNVA) | payer MEDICARE, MEDICAID, SELFPAY | PROVIDERS: PCP Registered Nurse; Visit Provider Podiatrist Foot & Ankle Surgery | DX: I73.9 Peripheral vascular disease, unspecified (principal); Z89.419 Acquired absence of unspecified great toe; Z89.421 Acquired absence of other right toe(s); Z86.39 Personal history of other endocrine, nutritional and metabolic disease; R60.0 Localized edema | CPT/HCPCS: 29580; 99214 ==

== ENCOUNTER → 2022-06-06 13:41 | Outpatient (BNVA) | payer MEDICARE, SELFPAY | PROVIDERS: PCP Registered Nurse; Visit Provider Podiatrist Foot & Ankle Surgery | DX: I73.9 Peripheral vascular disease, unspecified (principal); R60.0 Localized edema; Z89.421 Acquired absence of other right toe(s); Z86.39 Personal history of other endocrine, nutritional and metabolic disease; Z89.411 Acquired absence of right great toe | CPT/HCPCS: 11721; 29580 ==

== ENCOUNTER → 2022-06-13 10:37 | Outpatient (BNVA) | payer MEDICARE, MEDICAID, SELFPAY | PROVIDERS: PCP Registered Nurse; Visit Provider Internal Medicine Rheumatology | DX: M45.0 Ankylosing spondylitis of multiple sites in spine (principal); Z79.899 Other long term (current) drug therapy; Z15.89 Genetic susceptibility to other disease; Z71.89 Other specified counseling; M10.9 Gout, unspecified; Z89.421 Acquired absence of other right toe(s); Z89.411 Acquired absence of right great toe; I25.10 Atherosclerotic heart disease of native coronary artery without angina pectoris; M17.0 Bilateral primary osteoarthritis of knee; N18.9 Chronic kidney disease, unspecified; I65.29 Occlusion and stenosis of unspecified carotid artery; Z98.890 Other specified postprocedural states; I73.9 Peripheral vascular disease, unspecified; Z85.528 Personal history of other malignant neoplasm of kidney; Z95.0 Presence of cardiac pacemaker; E78.00 Pure hypercholesterolemia, unspecified | CPT/HCPCS: 36415; 80076; 82565; 84550; 85025; 86140; 99214 ==

== ENCOUNTER → 2022-06-27 13:06 | Outpatient (BNVA) | payer MEDICARE, MEDICAID, SELFPAY | PROVIDERS: PCP Registered Nurse; Visit Provider Podiatrist Foot & Ankle Surgery | DX: E11.8 Type 2 diabetes mellitus with unspecified complications (principal); I73.9 Peripheral vascular disease, unspecified; R60.0 Localized edema; Z89.419 Acquired absence of unspecified great toe; Z89.421 Acquired absence of other right toe(s); Z86.39 Personal history of other endocrine, nutritional and metabolic disease | CPT/HCPCS: 29580 ==

== ENCOUNTER → 2022-07-01 12:36 | Outpatient (BNVA) | payer MEDICARE, MEDICAID, SELFPAY | PROVIDERS: PCP Registered Nurse; Visit Provider Podiatrist Foot & Ankle Surgery | DX: I73.9 Peripheral vascular disease, unspecified (principal); R60.0 Localized edema; Z89.421 Acquired absence of other right toe(s); Z89.411 Acquired absence of right great toe | CPT/HCPCS: 99214 ==

== ENCOUNTER → 2022-07-18 10:43 | Outpatient (BNVA) | payer MEDICARE, MEDICAID, SELFPAY | PROVIDERS: PCP Registered Nurse; Visit Provider Podiatrist Foot & Ankle Surgery | DX: I73.9 Peripheral vascular disease, unspecified (principal); R60.0 Localized edema; Z89.421 Acquired absence of other right toe(s); Z86.39 Personal history of other endocrine, nutritional and metabolic disease | CPT/HCPCS: 99214 ==

== ENCOUNTER 2022-07-29 07:51 | Outpatient (CLI) | payer MEDICARE, MEDICAID, SELFPAY ==
--- NOTE | 2022-07-29 08:00 | USCV_ITS ---
Eloy Dyer Age: 72 Gender: M : 1950 Exam Date: 07/29/2022 08:06 Ordering Phys: Bryan Lee MD ([email or web address]) Technologist: Brenda Porter [place]am [place] [facility] [place]: Cardiomyopathy BP: 120 / 70 HR: Rhythm: Other Technical Quality: Good MEASUREMENTS (Male / Female) Normal Values 2D ECHO LV Diastolic Diameter PLAX 3.2 cm 4.2 - 5.9 / 3.9 - 5.3 cm LV Systolic Diameter PLAX 4.4 cm IVS Diastolic Thickness 1.6 cm 0.6 - 1.0 / 0.6 - 0.9 cm IVS Systolic Thickness 1.8 cm LVPW Diastolic Thickness 3.9 cm 0.6 - 1.0 / 0.6 - 0.9 cm LVPW Systolic Thickness 1.4 cm LVOT Diameter 2.0 cm LV Ejection Fraction 2D Teich 17.4 % LV Ejection Fraction MOD 2C 47.0 % LV Ejection Fraction 2C AL 49.0 % LA Diameter 4.5 cm LA Width 3.9 cm LA Height 5.4 cm RA Width 3.3 cm RA Height 4.4 cm Aorta at Sinotubular Diameter 2.9 cm IVC Diameter 1.6 cm M-MODE MV E Point Septal Separation 3.1 cm DOPPLER AV Peak Velocity 98.0 cm/s LVOT Peak Velocity 63.0 cm/s AV Area Cont Eq vti 1.9 cm squared AV Area Cont Eq pk 2.1 cm squared MV Peak Velocity 111.0 cm/s MV Area PHT 5.2 cm squared Mitral E to A Ratio 1.7 MV E' Velocity 86.5 cm/s TR Peak Velocity 245.5 cm/s TR Peak Gradient 24.1 mmHg Right Atrial Pressure 3.0 mmHg Pulmonary Artery Systolic Pressu 27.1 mmHg RV Acceleration Time 0.2 s RV Ejection Time 0.3 s RV AcT/ET 0.5 FINDINGS Left Ventricle Normal LV size with diminished ejection fraction of 40 to 45% . Diffuse hypokinesia of the septum, anteroseptum and the LV apex. Hypokinetic basal and mid inferior wall segment Right Ventricle Normal right ventricular size and systolic function. Right Atrium The right atrium is normal in size. Left Atrium Mildly dilated left atrium Mitral Valve Thickened mitral valve. Mild mitral annular calcification. Mild to moderate mitral valve regurgitation. Aortic Valve Thickened aortic valve. Tricuspid Valve Moderate tricuspid valve regurgitation. Pulmonic Valve Pulmonic valve not well visualized. Pericardium No pericardial effusion. Aorta Normal aortic annulus size. IVC Inferior vena cava not visualized. CONCLUSIONS Normal LV size with diminished ejection fraction of 40 to 45%. Wall motion normalities as mentioned above. .Mildly dilated left atrium. Thickened mitral valve. Mild mitral annular calcification. Mild to moderate mitral valve regurgitation. Moderate tricuspid valve regurgitation. Thickened aortic valve. There is no pericardial effusion. There are no intracardiac masses. No similar previous studies are available for comparison Dr Bryan Lee MD [facility] (Electronically Signed) Final Date: 29 July 2022 18:08 S
== END 2022-07-29 07:52 | disposition home or self-care (01) ==
LOC: RAD 07:51
PROVIDERS: PCP Registered Nurse; Visit Provider Internal Medicine Cardiovascular Disease
DX: R06.09 Other forms of dyspnea (principal); I34.81 Nonrheumatic mitral (valve) annulus calcification; I34.0 Nonrheumatic mitral (valve) insufficiency; I07.1 Rheumatic tricuspid insufficiency; I35.8 Other nonrheumatic aortic valve disorders
CPT/HCPCS: 93306

== ENCOUNTER → 2022-08-25 12:24 | Outpatient (BNVA) | payer MEDICARE, MEDICAID, SELFPAY | PROVIDERS: PCP Registered Nurse; Visit Provider Podiatrist Foot & Ankle Surgery | DX: E11.8 Type 2 diabetes mellitus with unspecified complications (principal); I73.9 Peripheral vascular disease, unspecified; R60.0 Localized edema; Z89.421 Acquired absence of other right toe(s); Z86.39 Personal history of other endocrine, nutritional and metabolic disease; Z89.411 Acquired absence of right great toe | CPT/HCPCS: 99213 ==

== ENCOUNTER 2022-09-07 11:40 | Emergency (ER) | payer MEDICARE, MEDICAID, SELFPAY ==
[2022-09-07] VITALS (38 sets, daily range): BP systolic 99–155; BP diastolic 55–70; PULSE 103–107; RESP 13–32; TEMP 36.9–37.5; O2SAT 86–96; BMI 30.5
--- NOTE | 2022-09-07 12:02 | ECG_ITS ---
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 Measurements Intervals [place] Rate: 104 P: -86 SC: 189 QRS: -31 QRSD: 201 T: 123 QT: 398 QTc: 524 Interpretive Statements ELECTRONIC VENTRICULAR PACEMAKER ABNORMAL RHYTHM ECG Compared to ECG 06/15/2018 15:59:04 Sinus rhythm no longer present First degree AV block no longer present Intraventricular conduction delay no longer present Electronically Signed On 09-07-2022 18:13:16 TECHNICIAN AUTOMATED EQUIPMENT by Bryan Lee M.D. [id number]
--- NOTE | 2022-09-07 12:02 | XRR_ITS ---
PROCEDURE INFORMATION: Exam: XR Chest Exam date and time: 09/07/2022 12:22 PM Age: 72 years old Clinical indication: Cough and dyspnea; Additional info: Dyspnea/cough TECHNIQUE: Imaging protocol: Radiologic exam of the chest. Views: 1 view. Total images: 207 COMPARISON: CR XR chest 2V* [id number] 10/19/2021 9:29 AM FINDINGS: Tubes, catheters and devices: A pacemaker device is present, its leads in appropriate position. Lungs: Unremarkable. No consolidation. Pleural spaces: Unremarkable. No pleural effusion. No pneumothorax. Heart/Mediastinum: Unremarkable. No cardiomegaly. Bones/joints: Osseous structures are unchanged from the prior exam. Old healed left clavicular fracture. XR/XR chest 1V portable [id number] IMPRESSION: No acute cardiopulmonary process.
--- NOTE | 2022-09-07 12:15 | ED_ITS ---
HPI - General Adult General: Chief complaint: General Medical Stated complaint: low o2, shaking Time Seen by Provider: 09/07/22 12:02 Source: patient Mode of arrival: ambulatory History of Present Illness: 72-year-old male presents emergency room with complaints of tachycardia and hypoxia. Patient had not been feeling well yeste rday had several bouts of diarrhea still has some generalized abdominal discomfort. Diarrhea has lessened today. They reported an elevated heart rate and hypoxia and hypotension at the rheumatology office but when he presented here his oxygen sat on room air is in the mid 90s. His heart rate is at 100. Onset (ago): day(s) Severity: mild Relieving factors: none Exacerbating factors: none Associated symptoms: Reports dyspnea, malaise, nausea and vomiting; Deny chest pain, confusion, cough, diaphoresis, decreased appetite, fevers/chills, headache(s), rash, palpitations, seizures, short of breath, syncope or weakness Treatments prior to arrival: none Review of Systems Const: Reports: malaise; Denies: fever(s), chills, fatigue or diaphoresis ENMT: Denies: throat pain, ear or mastoid pain, nasal discharge or nasal congestion Card: Denies: chest pain, palpitations or syncope Resp: Reports: dyspnea GI: Reports: nausea and vomiting; Denies: abdominal pain : Denies: flank pain, dysuria, urinary frequency or urinary urgency Skin/Breast: Denies: rash Neuro: Denies: headache(s) or confusion PFSH ED PFSH: Medical History Ankylosing spondylitis Atherosclerosis of [place] coronary artery of [place] heart without angina pectoris Atrial fibrillation Axial spondyloarthritis Benign essential HTN Carotid stenosis CHF (congestive heart failure) CKD (chronic kidney disease) Diabetes mellitus type 2, diet-controlled Displacement of femoral arterial bypass graft Erectile dysfunction Gout, arthritis H/O renal cell cancer HLA B27 (HLA B27 positive) Hyperlipidemia Hypertension Hypoxemia Localized osteoarthritis of left knee Osteoarthritis of knees, bilateral PAD (peripheral artery disease) history of right superficial femoral artery bypass PSA elevation Tachycardia Surgical History H/O heart surgery History of back surgery History of cardiac radiofrequency ablation History of carotid endarterectomy 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 History of elbow surgery History of femoropopliteal bypass History of kidney surgery FROZE KIDNEY DUE TO KIDNEY CANCER History of pacemaker History of permanent cardiac pacemaker placement History of shoulder surgery left Status post colonoscopy Family History Father , AT AGE 80 CAD (coronary artery disease) Family history of premature coronary artery disease Dementia Brother Family history of premature coronary artery disease Dementia Diabetes Sister Cancer oldest Sister Cancer youngest Mother , AT AGE 84 Dementia Denies family history of Clotting disorder Hyperlipidemia Psychiatric illness Chronic kidney disease (CKD) Suicide Anesthesia complication Bleeding disorder Lung disease Hypertension Stroke Social History Smoking and tobacco status: never smoked Second hand smoke exposure: Yes Alcohol intake: current Alcohol intake frequency: few times a week Alcohol type: beer Lives independently: No Household members: spouse Marital status: Current occupational status: retired History of recent travel: No Physical Exam Const: GENERAL APPEARANCE: cooperative and comfortable ORIENTATION/CONSCIOUSNESS: Yes awake, Yes oriented to person, Yes oriented to place and Yes oriented to time HENMT: COMMON NORMALS: normocephalic, atraumatic and hearing grossly normal bilaterally HEAD & SCALP: normocephalic and atraumatic Resp: COMMON NORMALS: normal respiratory effort, No retractions, No use of accessory muscles and clear to auscultation bilaterally AUSCULTATION: clear to auscultation bilaterally Cardio: COMMON NORMALS: regular rate, regular rhythm and No murmurs present (Cardio) RATE: regular rate RHYTHM: regular rhythm GI: COMMON NORMALS: Soft to palpation and No hepatosplenomegaly present AUSCULTATION: Yes normoactive bowel sounds PALPATION: Yes Soft to palpation, No Tenderness to palpation present (GI), No Guarding due to palpation present (GI) and Yes No hepatosplenomegaly present Extremity: COMMON NORMALS: normal to inspection, capillary refill normal, no clubbing, cyanosis or edema, no calf tenderness and no pedal edema Neuro: SENSORIUM/ORIENTATION: Yes oriented to person, Yes oriented to place and Yes oriented to time Skin: COMMON NORMALS: no rashes or lesions noted GENERAL SKIN EXAM: no rashes or lesions noted Course Vital Signs: Vital signs: Vital Signs Temperature 99.5 F 09/07/22 12:24 Pulse Rate 103 H 12/14/22 15:15 Respiratory Rate 22 H 09/07/22 15:15 Blood Pressure 109/64 09/07/22 15:15 Pulse Oximetry 92 09/07/22 15:15 Oxygen Delivery Me thod 09/07/22 12:19 MDM - General Adult Medical Decision Making Patient monitored for time and given IV fluids. He got blood cultures on him COVID and influenza swabs. White count is elevated General he otherwise feels fine we ambulated him his sat remained stable and his heart rate remained right at 100. He states he is feeling better. We did give him some IV fluids. He did have blood cultures done. Repeat exam is normal. Patient is on Cosentyx. We will [place] discharge him home and can of put him on Levaquin 750 daily until the cultures are back. Medical Records I reviewed the patient's medical records. Lab Data I reviewed the patient's lab results. 09/07/22 12:18 09/07/22 13:05 Radiology Impressions Chest X-Ray 09/07/22 12:02 IMPRESSION: No acute cardiopulmonary process. Laboratory Results WBC 15.4 10^3/uL (4.0-10.0) H 09/07/22 12:18 RBC 4.91 10^6/uL (4.1-5.3) 09/07/22 12:18 Hgb 14.2 g/dL (11.7-16.6) 09/07/22 12:18 Hct 45.2 % (42.0-52.0) 09/07/22 12:18 MCV 92.1 fl (80-94) 09/07/22 12:18 MCH 28.9 pg (28.0-34.0) 09/07/22 12:18 MCHC 31.4 g/dL (30.0-36.0) 09/07/22 12:18 RDW 15.7 % (12.1-15.1) H 09/07/22 12:18 Plt Count 221 10^3/cmm (130-400) 09/07/22 12:18 MPV 10.8 fL (7.4-10.4) H 09/07/22 12:18 Neut % (Auto) 86.2 % 09/07/22 12:18 Lymph % (Auto) 5.6 % 09/07/22 12:18 [place] % (Auto) 5.4 % 09/07/22 12:18 Eos % (Auto) 2.2 % 09/07/22 12:18 Baso % (Auto) 0.3 % 09/07/22 12:18 Neut # (Auto) 13.22 10^3/uL (1.8-7.7) H 09/07/22 12:18 Lymph # (Auto) 0.9 10^3/uL (0.8-4.8) 09/07/22 12:18 [place] # (Auto) 0.8 10^3/uL (0.2-0.9) 09/07/22 12:18 Eos # (Auto) 0.3 10^3/uL (0.0-0.8) 09/07/22 12:18 Baso # (Auto) 0.1 10^3/uL (0.0-0.1) 09/07/22 12:18 Nucleated RBC % (auto) 0 % 09/07/22 12:18 Nucleated RBCs # 0.0 /100WBC 09/07/22 12:18 Sodium 138 mmol/L (136-145) 09/07/22 13:05 Potassium 4.3 mmol/L (3.5-5.1) 09/07/22 13:05 Chloride 101 mmol/L (98-107) 09/07/22 13:05 Carbon Dioxide 23 mmol/L (22-29) 09/07/22 13:05 Anion Gap 18.3 (5-19) 09/07/22 13:05 BUN 17 mg/dL (8-23) 09/07/22 13:05 Creatinine 1.3 mg/dL (0.7-1.2) H 09/07/22 13:05 GFR Calculation Not Reportable 09/07/22 13:05 Glucose 138 mg/dL (65-115) H 09/07/22 13:05 Calculated Osmolality 290 mOsm/kg (285-295) 09/07/22 13:05 Calcium 9.2 mg/dL (8.5-10.5) 09/07/22 13:05 Total Bilirubin 0.5 mg/dL (0.15-1.2) 09/07/22 13:05 AST 15 U/L (0-40) 09/07/22 13:05 ALT 11 U/L (0-41) 09/07/22 13:05 Alkaline Phosphatase 128 U/L (40-130) 09/07/22 13:05 Total Protein 6.2 g/dL (6.6-8.7) L 09/07/22 13:05 Albumin 3.7 g/dL (3.5-5.2) 09/07/22 13:05 Globulin 2.5 g/dL (1.3-4.6) 09/07/22 13:05 Nasal Influ A H1 2009 PCR Cancelled 09/07/22 13:29 Coronavirus 229E (PCR) Cancelled 09/07/22 13:29 Influenza A (H1) PCR Cancelled 09/07/22 13:29 Influenza A (H3) PCR Cancelled 09/07/22 13:29 Influenza Type A (PCR) Cancelled 09/07/22 13:29 Influenza Type B (PCR) Cancelled 09/07/22 13:29 SARS-CoV-2 (PCR) Cancelled 09/07/22 13:29 Discharge Plan Discharge Patient Disposition: Home Clinical Impression: Leukocytosis, Palpitation Condition: Stable Prescriptions: No Action Combivent Respimat 20-100 mcg/actuation mist 2 puff inhalation Q4H PRN (Reason: shortness of breath or wheezing) tramadol 50 mg tablet 50 mg PO Q6H PRN (Reason: Pain) vitamin B complex [B Complex-Vitamin B12] Tablet 1 tab PO DAILY gabapentin 300 mg capsule 300 mg PO TID nitroglycerin 0.4 mg tablet, sublingual 0.4 mg sublingual Q5M PRN (Reason: chest pain) cholecalciferol (vitamin D3) 50 mcg (2,000 unit) capsule 50 mcg PO DAILY (DME) Diabetic shoes with 3 sets of inserts with toe filler on right See Rx Instructions .Route .MEDSUPPLY Qty: 1 0RF Rx Instructions: As directed by DIAMOND&O allopurinol 300 mg tablet 300 mg PO DAILY Qty: 30 3RF amlodipine 2.5 mg tablet 2.5 mg PO DAILY Qty: 90 3RF ezetimibe 10 mg tablet 10 mg PO DAILY Qty: 90 3RF rosuvastatin [Crestor] 40 mg tablet 40 mg PO DAILY clopidogrel 75 mg tablet 75 mg PO DAILY Qty: 90 3RF Farxiga 10 mg tablet 10 mg PO DAILY Cosentyx 150 mg/mL syringe 300 mg SUBCUT .U0ojmfd Qty: 2 3RF [place] 3 Fish Oil 684-1,200 mg Capsule,Delayed Release(Dr/Ec) 1 cap PO DAILY losartan 25 mg tablet 25 mg PO DAILY metoprolol tartrate 25 mg tablet 12.5 mg PO BID Eliquis 5 mg tablet 5 mg PO BID furosemide 40 mg tablet 40 mg PO DAILY trazodone 50 mg tablet 50 mg PO BEDTIME Discharge Orders: Discharge ED (Routine); Ordered 09/07/22 Ordered By: Fermin Gallegos Referrals: Arnaldo Tavarez CPNP [Primary Care Provider] - Discharge Diet: Usual diet Discharge Activity: Resume usual activity Patient Instructions: Opioid Safety, Pain Management Activity Restrictions/Additional Instructions: You are seen today for a rapid heart rate at your doctor's office. While in the emergency room your heart rate resolved to baseline normal. I discussed this with your call center nurse. We are going to have case management set you up for a 48-hour Holter monitor. He did have a slightly elevated white count but no sign of overt infection. You have any worsening symptoms abdominal pain chest pain cough or shortness of breath pain or burning with urination return to the emergency room. Coding Level of Care Code ED Insurance Underwriter for Edouard Garcia Exam Detailed
[2022-09-07 12:30] LABS: Basophils # 0.1 10^3/uL (0.0-0.1); Basophils % 0.3 %; Eosinophils # 0.3 10^3/uL (0.0-0.8); Eosinophils % 2.2 %; Hematocrit 45.2 % (42.0-52.0); Hemoglobin 14.2 g/dL (11.7-16.6); Lymphocytes # 0.9 10^3/uL (0.8-4.8); Lymphocytes % 5.6 %; Mean Corpuscular HGB Conc 31.4 g/dL (30.0-36.0); Mean Corpuscular Hemoglobin 28.9 pg (28.0-34.0); Mean Corpuscular Volume 92.1 fl (80-94); Mean Platelet Volume 10.8 fL (7.4-10.4); Monocytes # 0.8 10^3/uL (0.2-0.9); Monocytes % 5.4 %; Neutrophils # 13.22 10^3/uL (1.8-7.7); Neutrophils % 86.2 %; Nucleated Red Blood Cells % 0 %; Platelet Count 221 10^3/cmm (130-400); Red Blood Count 4.91 10^6/uL (4.1-5.3); Red Cell Distribution Width 15.7 % (12.1-15.1); White Blood Count 15.4 10^3/uL (4.0-10.0)
[2022-09-07] MEDS: ondansetron 2 mg/ML SDV 2 mL 4 MG IVP (12:35)
--- NOTE | 2022-09-07 13:08 | PC.NURSE ---
Pt yelled for help while going to to the bathroom. Pt had unlocked the door, Dr Gallegos had to manually unlock the door from the outside. Found pt lying in the floor. Pt said his guts were on fire and said he decided to lay down on the bathroom floor. Pt was lifted into a wheelchair and returned to room. Staff involved: VASILE Branch RN D. Dorian, RN E. Cooper, RN J. Sartor, RN
[2022-09-07 13:42] LABS: Alanine Aminotransferase 11 U/L (0-41); Albumin Level 3.7 g/dL (3.5-5.2); Alkaline Phosphatase 128 U/L (40-130); Anion Gap 18.3 (5-19); Aspartate Amino Transferase 15 U/L (0-40); Blood Urea Nitrogen 17 mg/dL (8-23); Calcium 9.2 mg/dL (8.5-10.5); Carbon Dioxide 23 mmol/L (22-29); Chloride 101 mmol/L (98-107); Globulin 2.5 g/dL (1.3-4.6); Glucose 138 mg/dL (65-115); Osmolality Calculated 290 mOsm/kg (285-295); Potassium 4.3 mmol/L (3.5-5.1); Sodium 138 mmol/L (136-145); Total Bilirubin 0.5 mg/dL (0.15-1.2); Total Protein 6.2 g/dL (6.6-8.7)
[2022-09-07] MEDS: sodium chloride 0.9% 1,000 ML 999 ML IV (15:56)
== END 2022-09-07 18:09 | disposition home or self-care (01) ==
PROVIDERS: Emergency Provider Family Medicine; PCP Registered Nurse
DX: R00.2 Palpitations (principal); D72.829 Elevated white blood cell count, unspecified; Z79.01 Long term (current) use of anticoagulants; Z79.02 Long term (current) use of antithrombotics/antiplatelets; Z77.22 Contact with and (suspected) exposure to environmental tobacco smoke (acute) (chronic); Z95.0 Presence of cardiac pacemaker; I25.10 Atherosclerotic heart disease of native coronary artery without angina pectoris; I13.0 Hypertensive heart and chronic kidney disease with heart failure and stage 1 through stage 4 chronic kidney disease, or unspecified chronic kidney disease; E11.22 Type 2 diabetes mellitus with diabetic chronic kidney disease; N18.9 Chronic kidney disease, unspecified; I50.9 Heart failure, unspecified; Z85.528 Personal history of other malignant neoplasm of kidney; E78.5 Hyperlipidemia, unspecified; M45.0 Ankylosing spondylitis of multiple sites in spine; Z15.89 Genetic susceptibility to other disease; Z79.899 Other long term (current) drug therapy; Z71.89 Other specified counseling; R00.0 Tachycardia, unspecified; R09.02 Hypoxemia; M10.9 Gout, unspecified; Z89.421 Acquired absence of other right toe(s); Z89.411 Acquired absence of right great toe; I65.29 Occlusion and stenosis of unspecified carotid artery; Z98.890 Other specified postprocedural states; I73.9 Peripheral vascular disease, unspecified; E78.00 Pure hypercholesterolemia, unspecified; M15.9 Polyosteoarthritis, unspecified; I48.0 Paroxysmal atrial fibrillation
CPT/HCPCS: 36415; 71045; 80053; 85025; 87040; 93005; 96361; 96374; 99214; 99285; J2405; J7030

== ENCOUNTER → 2022-09-27 11:07 | Outpatient (BNVA) | payer MEDICARE, MEDICAID, SELFPAY | PROVIDERS: PCP Registered Nurse; Visit Provider Podiatrist Foot & Ankle Surgery | DX: I73.9 Peripheral vascular disease, unspecified (principal); Z89.411 Acquired absence of right great toe; Z79.899 Other long term (current) drug therapy; R60.0 Localized edema; R00.0 Tachycardia, unspecified; Z89.421 Acquired absence of other right toe(s); Z86.39 Personal history of other endocrine, nutritional and metabolic disease; L97.511 Non-pressure chronic ulcer of other part of right foot limited to breakdown of skin | CPT/HCPCS: 29580; 93225 ==

== ENCOUNTER → 2022-10-03 10:48 | Outpatient (BNVA) | payer MEDICARE, MEDICAID, SELFPAY | PROVIDERS: PCP Registered Nurse; Visit Provider Podiatrist Foot & Ankle Surgery | DX: I73.9 Peripheral vascular disease, unspecified (principal); R60.0 Localized edema; Z89.411 Acquired absence of right great toe; Z89.421 Acquired absence of other right toe(s); Z86.39 Personal history of other endocrine, nutritional and metabolic disease; L97.511 Non-pressure chronic ulcer of other part of right foot limited to breakdown of skin | CPT/HCPCS: 99214 ==

== ENCOUNTER → 2022-10-12 14:10 | Outpatient (BNVA) | payer MEDICARE, MEDICAID, SELFPAY | PROVIDERS: PCP Registered Nurse; Visit Provider Urology | DX: N28.89 Other specified disorders of kidney and ureter (principal); R97.20 Elevated prostate specific antigen [PSA] | CPT/HCPCS: 80053; 84153; 85025 ==

== ENCOUNTER → 2022-11-02 09:36 | Outpatient (BNVA) | payer MEDICARE, MEDICAID, SELFPAY | PROVIDERS: PCP Nurse Practitioner Family; Visit Provider Internal Medicine Cardiovascular Disease | DX: I25.5 Ischemic cardiomyopathy (principal); Z95.0 Presence of cardiac pacemaker; I48.11 Longstanding persistent atrial fibrillation; Z79.01 Long term (current) use of anticoagulants; I25.10 Atherosclerotic heart disease of native coronary artery without angina pectoris; I65.23 Occlusion and stenosis of bilateral carotid arteries; E78.2 Mixed hyperlipidemia; I13.0 Hypertensive heart and chronic kidney disease with heart failure and stage 1 through stage 4 chronic kidney disease, or unspecified chronic kidney disease; E11.22 Type 2 diabetes mellitus with diabetic chronic kidney disease; N18.9 Chronic kidney disease, unspecified; I50.32 Chronic diastolic (congestive) heart failure | CPT/HCPCS: 99214 ==

== ENCOUNTER → 2022-11-16 13:05 | Outpatient (BNVA) | payer MEDICARE, MEDICAID, SELFPAY | PROVIDERS: PCP Nurse Practitioner Family; Visit Provider Podiatrist Foot & Ankle Surgery | DX: I73.9 Peripheral vascular disease, unspecified (principal); R60.0 Localized edema; Z89.411 Acquired absence of right great toe; Z89.421 Acquired absence of other right toe(s); Z86.39 Personal history of other endocrine, nutritional and metabolic disease | CPT/HCPCS: 99214 ==

== ENCOUNTER → 2022-11-25 09:17 | Outpatient (BNVA) | payer MEDICARE, MEDICAID, SELFPAY | PROVIDERS: PCP Nurse Practitioner Family; Visit Provider Nurse Practitioner Family | DX: I25.5 Ischemic cardiomyopathy (principal); I13.0 Hypertensive heart and chronic kidney disease with heart failure and stage 1 through stage 4 chronic kidney disease, or unspecified chronic kidney disease; E11.22 Type 2 diabetes mellitus with diabetic chronic kidney disease; N18.9 Chronic kidney disease, unspecified; I50.9 Heart failure, unspecified; E78.5 Hyperlipidemia, unspecified | CPT/HCPCS: 36415; 80048; 83880; 99214 ==

== ENCOUNTER → 2022-11-29 09:50 | Outpatient (BNVA) | payer MEDICARE, MEDICAID, SELFPAY | PROVIDERS: PCP Nurse Practitioner Family; Visit Provider Internal Medicine Rheumatology | DX: M45.0 Ankylosing spondylitis of multiple sites in spine (principal); E11.8 Type 2 diabetes mellitus with unspecified complications; I73.9 Peripheral vascular disease, unspecified; R60.0 Localized edema; Z89.411 Acquired absence of right great toe; Z89.421 Acquired absence of other right toe(s); Z79.899 Other long term (current) drug therapy; Z15.89 Genetic susceptibility to other disease; Z71.89 Other specified counseling; R00.0 Tachycardia, unspecified; R09.02 Hypoxemia | CPT/HCPCS: 80048; 80076; 84550; 85025; 99214 ==

== ENCOUNTER 2022-12-12 07:51 | Outpatient (CLI) | payer MEDICARE, MEDICAID, SELFPAY ==
--- NOTE | 2022-12-12 08:30 | US_ITS ---
WS: [id number] ULTRASOUND RENAL TECHNIQUE: Ultrasound examination of both kidneys. CLINICAL INFORMATION: Renal Mass COMPARISON: October 19, 2021 FINDINGS: RIGHT: Right kidney is normal in size and appearance. Echogenicity: Normal. Cortical thickness: 1.1 cm; Normal. Hydronephrosis: None. Perinephric fluid: None. Right kidney measures: 9.1 cm x 5.6 cm x 5.2 cm. LEFT: Left kidney is normal in size and appearance. Echogenicity: Normal. Cortical thickness: 1.5 cm; Normal. Hydronephrosis: None. Perinephric fluid: None. Left kidney measures: 9.8 cm x 4.1 cm x 5.4 cm. Normal visualized aorta. US/US renal BI* [id number] IMPRESSION: 1. Normal renal ultrasound 2. Area of cryoablation in the LEFT kidney is not identified today. No visuali zed suspicious mass or lesion.
== END 2022-12-12 07:52 | disposition home or self-care (01) ==
LOC: RAD 07:55
PROVIDERS: PCP Nurse Practitioner Family; Visit Provider Urology
DX: N28.89 Other specified disorders of kidney and ureter (principal)
CPT/HCPCS: 76770

== ENCOUNTER 2022-12-28 12:07 | Outpatient (CLI) | payer MEDICARE, MEDICAID, SELFPAY ==
--- NOTE | 2022-12-28 12:19 | XRR_ITS ---
PROCEDURE INFORMATION: Exam: XR Chest Exam date and time: 12/28/2022 12:23 PM Age: 72 years old Clinical indication: Condition or disease; Other: Kidney cancer follow up. Prior surgery; Surgery type: History of left kidney, elbow, spine, and pacemaker surgical procedures. ; Additional info: Renal mass, cxr, renal US with no biopsy and 12/28/22 @ 12:00 appointment to follow TECHNIQUE: Imaging protocol: Radiologic exam of the chest. Views: 2 views. COMPARISON: CR XR chest 1V portable [id number] 09/07/2022 12:22 PM FINDINGS: Tubes, catheters and devices: Cardiac rhythm maintenance device is in place. Lungs: Unremarkable. No consolidation. Pleural spaces: Unremarkable. No pleural effusion. No pneumothorax. Heart/Mediastinum: Unremarkable. No cardiomegaly. Bones/joints: Unremarkable. XR/XR chest 2V* [id number] IMPRESSION: No acute cardiopulmonary abnormality.
== END 2022-12-28 12:08 | disposition home or self-care (01) ==
LOC: RAD 12:12
PROVIDERS: PCP Nurse Practitioner Family; Visit Provider Urology
DX: N28.89 Other specified disorders of kidney and ureter (principal)
CPT/HCPCS: 71046; 81003; 99213

== ENCOUNTER → 2023-01-02 13:31 | Outpatient (BNVA) | payer MEDICARE, MEDICAID, SELFPAY | PROVIDERS: PCP Nurse Practitioner Family; Visit Provider Podiatrist Foot & Ankle Surgery | DX: I73.9 Peripheral vascular disease, unspecified (principal); R60.0 Localized edema; Z89.411 Acquired absence of right great toe; Z89.421 Acquired absence of other right toe(s); Z86.39 Personal history of other endocrine, nutritional and metabolic disease | CPT/HCPCS: 99213 ==

== ENCOUNTER → 2023-01-09 13:53 | Outpatient (BNVA) | payer MEDICARE, MEDICAID, SELFPAY | PROVIDERS: PCP Nurse Practitioner Family; Visit Provider Nurse Practitioner Family | DX: I25.5 Ischemic cardiomyopathy (principal); I13.0 Hypertensive heart and chronic kidney disease with heart failure and stage 1 through stage 4 chronic kidney disease, or unspecified chronic kidney disease; E11.22 Type 2 diabetes mellitus with diabetic chronic kidney disease; F17.200 Nicotine dependence, unspecified, uncomplicated; N18.9 Chronic kidney disease, unspecified; I50.9 Heart failure, unspecified; Z79.84 Long term (current) use of oral hypoglycemic drugs; Z79.01 Long term (current) use of anticoagulants | CPT/HCPCS: 99214 ==

== ENCOUNTER 2023-01-23 10:20 | Outpatient (CLI) | payer MEDICARE, MEDICAID, SELFPAY | END 2023-01-23 10:21 | disposition home or self-care (01) | LOC: SPT 01-24 10:21 | PROVIDERS: PCP Nurse Practitioner Family; Visit Provider Podiatrist Foot & Ankle Surgery | DX: Z46.89 Encounter for fitting and adjustment of other specified devices (principal); L97.511 Non-pressure chronic ulcer of other part of right foot limited to breakdown of skin | CPT/HCPCS: 97760; L4361 ==

== ENCOUNTER 2023-01-23 12:49 | Outpatient (CLI) | payer MEDICARE, MEDICAID, SELFPAY ==
[2023-01-23 13:50] LABS: Blood Urea Nitrogen 10 mg/dL (8-23); Calcium 9.4 mg/dL (8.5-10.5); Carbon Dioxide 27 mmol/L (22-29); Chloride 100 mmol/L (98-107); Glucose 204 mg/dL (65-115); NT Pro B Type Natriuretic Pept 842 pg/mL (0-125); Osmolality Calculated 287 mOsm/kg (285-295); Sodium 136 mmol/L (136-145)
== END 2023-01-23 12:50 | disposition home or self-care (01) ==
LOC: LAB 12:53
PROVIDERS: Nurse Practitioner Family; PCP Nurse Practitioner Family; Visit Provider Nurse Practitioner Family
DX: I25.5 Ischemic cardiomyopathy (principal); L97.511 Non-pressure chronic ulcer of other part of right foot limited to breakdown of skin; I25.10 Atherosclerotic heart disease of native coronary artery without angina pectoris; I10 Essential (primary) hypertension; I73.9 Peripheral vascular disease, unspecified; L97.513 Non-pressure chronic ulcer of other part of right foot with necrosis of muscle; R60.0 Localized edema; Z89.411 Acquired absence of right great toe; Z89.421 Acquired absence of other right toe(s); Z86.39 Personal history of other endocrine, nutritional and metabolic disease
CPT/HCPCS: 36415; 73630; 80048; 83880; 87070; 87075; 87205

== ENCOUNTER 2023-01-23 15:15 | Outpatient (CLI) | payer MEDICARE, MEDICAID, SELFPAY | END 2023-01-23 15:16 | disposition home or self-care (01) | LOC: SPT 15:15 | PROVIDERS: PCP Nurse Practitioner Family; Visit Provider Podiatrist Foot & Ankle Surgery | DX: I73.9 Peripheral vascular disease, unspecified (principal); L97.513 Non-pressure chronic ulcer of other part of right foot with necrosis of muscle; R60.0 Localized edema; Z89.411 Acquired absence of right great toe; Z89.421 Acquired absence of other right toe(s); Z86.39 Personal history of other endocrine, nutritional and metabolic disease | CPT/HCPCS: 11043 ==

== ENCOUNTER → 2023-01-27 13:08 | Outpatient (BNVA) | payer MEDICARE, MEDICAID, SELFPAY | PROVIDERS: PCP Nurse Practitioner Family; Visit Provider Nurse Practitioner Family | DX: I96 Gangrene, not elsewhere classified (principal); L89.892 Pressure ulcer of other site, stage 2 | CPT/HCPCS: 11042 ==

== ENCOUNTER → 2023-01-31 14:34 | Outpatient (BNVA) | payer MEDICARE, MEDICAID, SELFPAY | PROVIDERS: PCP Nurse Practitioner Family; Visit Provider Nurse Practitioner Family | DX: I96 Gangrene, not elsewhere classified (principal); L89.892 Pressure ulcer of other site, stage 2 | CPT/HCPCS: 11042 ==

== ENCOUNTER → 2023-02-07 13:03 | Outpatient (BNVA) | payer MEDICARE, MEDICAID, SELFPAY | PROVIDERS: PCP Nurse Practitioner Family; Visit Provider Nurse Practitioner Family | DX: E11.621 Type 2 diabetes mellitus with foot ulcer (principal); I96 Gangrene, not elsewhere classified; L97.412 Non-pressure chronic ulcer of right heel and midfoot with fat layer exposed | CPT/HCPCS: 97597; A6210 ==

== ENCOUNTER → 2023-02-14 13:13 | Outpatient (BNVA) | payer MEDICARE, MEDICAID, SELFPAY | PROVIDERS: PCP Nurse Practitioner Family; Visit Provider Nurse Practitioner Family | DX: E11.621 Type 2 diabetes mellitus with foot ulcer (principal); I96 Gangrene, not elsewhere classified; L97.522 Non-pressure chronic ulcer of other part of left foot with fat layer exposed | CPT/HCPCS: 11042; A6219 ==

== ENCOUNTER → 2023-02-21 12:55 | Outpatient (BNVA) | payer MEDICARE, MEDICAID, SELFPAY | PROVIDERS: PCP Nurse Practitioner Family; Visit Provider Nurse Practitioner Family | DX: I96 Gangrene, not elsewhere classified (principal); E11.621 Type 2 diabetes mellitus with foot ulcer; L89.892 Pressure ulcer of other site, stage 2 | CPT/HCPCS: 11042 ==

== ENCOUNTER → 2023-02-28 09:38 | Outpatient (BNVA) | payer MEDICARE, MEDICAID, SELFPAY | PROVIDERS: PCP Nurse Practitioner Family; Visit Provider Podiatrist Foot & Ankle Surgery | DX: I73.9 Peripheral vascular disease, unspecified (principal); L60.3 Nail dystrophy; R60.0 Localized edema; Z89.421 Acquired absence of other right toe(s); Z86.39 Personal history of other endocrine, nutritional and metabolic disease; L97.513 Non-pressure chronic ulcer of other part of right foot with necrosis of muscle; M45.0 Ankylosing spondylitis of multiple sites in spine; E11.621 Type 2 diabetes mellitus with foot ulcer; Z15.89 Genetic susceptibility to other disease; L89.892 Pressure ulcer of other site, stage 2; Z79.899 Other long term (current) drug therapy; Z71.89 Other specified counseling; Z89.411 Acquired absence of right great toe; R00.0 Tachycardia, unspecified; R09.02 Hypoxemia | CPT/HCPCS: 11042; 11721; 80076; 82565; 85025; 86140; 87070; 87077; 87176; 87186; 87205; 99214; A6210; A6251 ==

== ENCOUNTER → 2023-03-02 14:21 | Outpatient (BNVA) | payer MEDICARE, MEDICAID, SELFPAY | PROVIDERS: PCP Nurse Practitioner Family; Visit Provider Nurse Practitioner Family | DX: E11.621 Type 2 diabetes mellitus with foot ulcer (principal); L89.892 Pressure ulcer of other site, stage 2 | CPT/HCPCS: 29445; A6210; A6252 ==

== ENCOUNTER → 2023-03-07 10:24 | Outpatient (BNVA) | payer MEDICARE, MEDICAID, SELFPAY | PROVIDERS: PCP Nurse Practitioner Family; Visit Provider Nurse Practitioner Family | DX: E11.52 Type 2 diabetes mellitus with diabetic peripheral angiopathy with gangrene (principal); L89.892 Pressure ulcer of other site, stage 2 | CPT/HCPCS: 11042; A6210; A6252 ==

== ENCOUNTER → 2023-03-14 09:29 | Outpatient (BNVA) | payer MEDICARE, MEDICAID, SELFPAY | PROVIDERS: PCP Nurse Practitioner Family; Visit Provider Nurse Practitioner Family | DX: E11.52 Type 2 diabetes mellitus with diabetic peripheral angiopathy with gangrene (principal); L89.892 Pressure ulcer of other site, stage 2 | CPT/HCPCS: 97597; A6210 ==

== ENCOUNTER → 2023-03-21 13:05 | Outpatient (BNVA) | payer MEDICARE, MEDICAID, SELFPAY | PROVIDERS: PCP Nurse Practitioner Family; Visit Provider Nurse Practitioner Family | DX: E11.52 Type 2 diabetes mellitus with diabetic peripheral angiopathy with gangrene (principal); L89.892 Pressure ulcer of other site, stage 2 | CPT/HCPCS: 97597 ==

== ENCOUNTER → 2023-03-30 10:51 | Outpatient (BNVA) | payer MEDICARE, MEDICAID, SELFPAY | PROVIDERS: PCP Nurse Practitioner Family; Visit Provider Nurse Practitioner Family | DX: E11.52 Type 2 diabetes mellitus with diabetic peripheral angiopathy with gangrene (principal); L97.512 Non-pressure chronic ulcer of other part of right foot with fat layer exposed | CPT/HCPCS: 97597; A6212 ==

== ENCOUNTER → 2023-04-06 12:59 | Outpatient (BNVA) | payer MEDICARE, MEDICAID, SELFPAY | PROVIDERS: PCP Nurse Practitioner Family; Visit Provider Nurse Practitioner Family | DX: E11.52 Type 2 diabetes mellitus with diabetic peripheral angiopathy with gangrene (principal); L89.892 Pressure ulcer of other site, stage 2 | CPT/HCPCS: 97597 ==

== ENCOUNTER → 2023-04-13 13:03 | Outpatient (BNVA) | payer MEDICARE, MEDICAID, SELFPAY | PROVIDERS: PCP Nurse Practitioner Family; Visit Provider Nurse Practitioner Family | DX: E11.52 Type 2 diabetes mellitus with diabetic peripheral angiopathy with gangrene (principal); L89.892 Pressure ulcer of other site, stage 2 | CPT/HCPCS: 97597 ==

== ENCOUNTER → 2023-04-20 10:48 | Outpatient (BNVA) | payer MEDICARE, MEDICAID, SELFPAY | PROVIDERS: PCP Nurse Practitioner Family; Visit Provider Nurse Practitioner Family | DX: E11.52 Type 2 diabetes mellitus with diabetic peripheral angiopathy with gangrene (principal); L89.892 Pressure ulcer of other site, stage 2 | CPT/HCPCS: 97597 ==

== ENCOUNTER → 2023-04-25 10:30 | Outpatient (BNVA) | payer MEDICARE, MEDICAID, SELFPAY | PROVIDERS: PCP Nurse Practitioner Family; Visit Provider Nurse Practitioner Family | DX: E11.52 Type 2 diabetes mellitus with diabetic peripheral angiopathy with gangrene (principal); L89.892 Pressure ulcer of other site, stage 2 | CPT/HCPCS: 97597 ==

== ENCOUNTER → 2023-05-04 13:12 | Outpatient (BNVA) | payer MEDICARE, MEDICAID, SELFPAY | PROVIDERS: PCP Nurse Practitioner Family; Visit Provider Internal Medicine Cardiovascular Disease | DX: I48.11 Longstanding persistent atrial fibrillation (principal); I13.0 Hypertensive heart and chronic kidney disease with heart failure and stage 1 through stage 4 chronic kidney disease, or unspecified chronic kidney disease; I50.32 Chronic diastolic (congestive) heart failure; N18.9 Chronic kidney disease, unspecified; L97.511 Non-pressure chronic ulcer of other part of right foot limited to breakdown of skin; R60.0 Localized edema; I25.5 Ischemic cardiomyopathy; I73.9 Peripheral vascular disease, unspecified; M45.0 Ankylosing spondylitis of multiple sites in spine; Z95.0 Presence of cardiac pacemaker; I25.10 Atherosclerotic heart disease of native coronary artery without angina pectoris; I65.23 Occlusion and stenosis of bilateral carotid arteries; E78.2 Mixed hyperlipidemia; F17.200 Nicotine dependence, unspecified, uncomplicated; E11.621 Type 2 diabetes mellitus with foot ulcer; E11.22 Type 2 diabetes mellitus with diabetic chronic kidney disease; Z79.4 Long term (current) use of insulin | CPT/HCPCS: 99214 ==

== ENCOUNTER → 2023-05-09 10:24 | Outpatient (BNVA) | payer MEDICARE, MEDICAID, SELFPAY | PROVIDERS: PCP Nurse Practitioner Family; Visit Provider Nurse Practitioner Family | DX: Z09 Encounter for follow-up examination after completed treatment for conditions other than malignant neoplasm (principal) | CPT/HCPCS: 99212; A6219 ==

== ENCOUNTER 2023-05-18 11:06 | Outpatient (CLI) | payer MEDICARE, MEDICAID, SELFPAY ==
--- NOTE | 2023-05-18 11:15 | USCV_ITS ---
Eloy Dyer Age: 72 Gender: M : 1950 Exam Date: 05/18/2023 11:41 Ordering Phys: Glen Ya MD ([email or web address]) Technologist: Brenda Porter Exam Location: [facility] [place] Indication: bilateral endarterectomy history Risk Factors: Previous Vascular Surgery: Right Brachial BP: / Left Brachial BP: / Right Left Velocity (cm/s) Spectral Plaque Velocity (cm/s) Spectral Plaque Syst/Diast Broadening Syst/Diast Broadening 48.00/ 13.10 Prox CCA 42.60 / 10.50 24.40/ 6.40 Mid CCA 38.30 / 11.70 Hetro 20.10/ 5.60 Hetro Distal CCA 34.60 / 11.10 Hetro 34.20/ 15.00 Hetro Prox ICA 45.10 / 17.90 46.50/ 18.70 Mid ICA 61.40 / 26.40 59.20/ 22.20 Distal ICA 49.50 / 22.80 108.10 ECA 67.30 1.23 ICA/CCA 1.44 Antegrade Vertebral Antegrade 40.10/ 9.30 cm/s 38.50/ 12.80 cm/s Tri Subclavian Bi 61.10 54.20 CONCLUSIONS Right ICA stenosis <50%. Mild atheromatous plaque right carotid bulb/ICA. Left ICA stenosis <50%. Mild atheromatous plaque left carotid bulb/ICA. Intimal thickening in the common carotid arteries and internal carotid arteries bilaterally. History of Bilateral CEA Normal antegrade Doppler flow noted in the right vertebral artery. Normal antegrade Doppler flow noted in the left vertebral artery. Christopher Carter MD (Electronically Signed) Final Date: 18 May 2023 12:21 S
== END 2023-05-18 11:07 | disposition home or self-care (01) ==
LOC: RAD 11:08
PROVIDERS: PCP Nurse Practitioner Family; Visit Provider Internal Medicine Cardiovascular Disease
DX: I65.23 Occlusion and stenosis of bilateral carotid arteries (principal); Z98.890 Other specified postprocedural states
CPT/HCPCS: 93880

== ENCOUNTER → 2023-06-01 14:22 | Outpatient (BNVA) | payer MEDICARE, MEDICAID, SELFPAY | PROVIDERS: PCP Nurse Practitioner Family; Visit Provider Internal Medicine Cardiovascular Disease | DX: Z45.010 Encounter for checking and testing of cardiac pacemaker pulse generator [battery] (principal) | CPT/HCPCS: 93296 ==

== ENCOUNTER → 2023-06-06 10:09 | Outpatient (BNVA) | payer MEDICARE, MEDICAID, SELFPAY | PROVIDERS: PCP Nurse Practitioner Family; Visit Provider Internal Medicine Rheumatology | DX: Z79.899 Other long term (current) drug therapy (principal); M45.9 Ankylosing spondylitis of unspecified sites in spine; N18.9 Chronic kidney disease, unspecified; M45.0 Ankylosing spondylitis of multiple sites in spine; Z15.89 Genetic susceptibility to other disease; Z71.89 Other specified counseling; R00.0 Tachycardia, unspecified; R09.02 Hypoxemia | CPT/HCPCS: 36415; 80076; 82565; 84550; 85025; 86140; 99214 ==

== ENCOUNTER → 2023-07-04 10:33 | Outpatient (BNVA) | payer MEDICARE, MEDICAID, SELFPAY | PROVIDERS: PCP Nurse Practitioner Family; Visit Provider Podiatrist Foot & Ankle Surgery | DX: E11.8 Type 2 diabetes mellitus with unspecified complications (principal); I73.9 Peripheral vascular disease, unspecified; R60.0 Localized edema; Z89.421 Acquired absence of other right toe(s); L60.3 Nail dystrophy; Z89.411 Acquired absence of right great toe | CPT/HCPCS: 11721 ==

== ENCOUNTER → 2023-09-11 10:24 | Outpatient (BNVA) | payer MEDICARE, MEDICAID, SELFPAY | PROVIDERS: PCP Nurse Practitioner Family; Visit Provider Internal Medicine Cardiovascular Disease | DX: Z45.010 Encounter for checking and testing of cardiac pacemaker pulse generator [battery] (principal) | CPT/HCPCS: 93296 ==

== ENCOUNTER → 2023-10-31 11:31 | Outpatient (BNVA) | payer MEDICARE, MEDICAID, SELFPAY | PROVIDERS: PCP Nurse Practitioner Family; Visit Provider Internal Medicine Rheumatology | DX: Z79.899 Other long term (current) drug therapy (principal); M45.0 Ankylosing spondylitis of multiple sites in spine; Z15.89 Genetic susceptibility to other disease; Z71.89 Other specified counseling; R00.0 Tachycardia, unspecified; R09.02 Hypoxemia; I73.9 Peripheral vascular disease, unspecified; L60.3 Nail dystrophy; Z89.411 Acquired absence of right great toe; Z89.421 Acquired absence of other right toe(s); N18.9 Chronic kidney disease, unspecified; L97.513 Non-pressure chronic ulcer of other part of right foot with necrosis of muscle; L97.511 Non-pressure chronic ulcer of other part of right foot limited to breakdown of skin | CPT/HCPCS: 11721; 36415; 80076; 82565; 84550; 85025; 85651; 86140; 99214 ==

== ENCOUNTER → 2023-11-09 10:53 | Outpatient (BNVA) | payer MEDICARE, MEDICAID, SELFPAY | PROVIDERS: PCP Nurse Practitioner Family; Visit Provider Internal Medicine Cardiovascular Disease | DX: E78.2 Mixed hyperlipidemia (principal); I13.0 Hypertensive heart and chronic kidney disease with heart failure and stage 1 through stage 4 chronic kidney disease, or unspecified chronic kidney disease; I50.32 Chronic diastolic (congestive) heart failure; N18.9 Chronic kidney disease, unspecified; I65.23 Occlusion and stenosis of bilateral carotid arteries; I25.10 Atherosclerotic heart disease of native coronary artery without angina pectoris; I48.11 Longstanding persistent atrial fibrillation; Z95.0 Presence of cardiac pacemaker; I25.5 Ischemic cardiomyopathy; R00.0 Tachycardia, unspecified; N28.89 Other specified disorders of kidney and ureter; M45.0 Ankylosing spondylitis of multiple sites in spine; Z98.890 Other specified postprocedural states; Z79.01 Long term (current) use of anticoagulants; E11.51 Type 2 diabetes mellitus with diabetic peripheral angiopathy without gangrene; E11.22 Type 2 diabetes mellitus with diabetic chronic kidney disease; F17.200 Nicotine dependence, unspecified, uncomplicated | CPT/HCPCS: 99214 ==

== ENCOUNTER → 2024-02-07 08:26 | Outpatient (BNVA) | payer MEDICARE, MEDICAID, SELFPAY | PROVIDERS: PCP Nurse Practitioner Family; Visit Provider Podiatrist Foot & Ankle Surgery | DX: E11.8 Type 2 diabetes mellitus with unspecified complications (principal); L60.3 Nail dystrophy; I73.9 Peripheral vascular disease, unspecified; Z89.421 Acquired absence of other right toe(s); N18.9 Chronic kidney disease, unspecified; Z89.411 Acquired absence of right great toe | CPT/HCPCS: 11721 ==

== ENCOUNTER → 2024-03-05 11:32 | Outpatient (BNVA) | payer MEDICARE, MEDICAID, SELFPAY | PROVIDERS: PCP Nurse Practitioner Family; Visit Provider Internal Medicine Rheumatology | DX: M45.0 Ankylosing spondylitis of multiple sites in spine (principal); E11.22 Type 2 diabetes mellitus with diabetic chronic kidney disease; N18.9 Chronic kidney disease, unspecified; M10.9 Gout, unspecified; C64.2 Malignant neoplasm of left kidney, except renal pelvis; R00.0 Tachycardia, unspecified; R09.02 Hypoxemia; M19.90 Unspecified osteoarthritis, unspecified site; S83.519A Sprain of anterior cruciate ligament of unspecified knee, initial encounter; S83.209A Unspecified tear of unspecified meniscus, current injury, unspecified knee, initial encounter; X58.XXXA Exposure to other specified factors, initial encounter; Z79.899 Other long term (current) drug therapy; Z15.89 Genetic susceptibility to other disease; Z71.85 Encounter for immunization safety counseling; F17.200 Nicotine dependence, unspecified, uncomplicated; Z98.890 Other specified postprocedural states | CPT/HCPCS: 99214 ==

== ENCOUNTER 2024-06-03 10:00 | Outpatient (CLI) | payer MEDICARE, MEDICAID, SELFPAY ==
--- NOTE | 2024-06-03 10:17 | CT_ITS ---
WS: [id number] LDCT LUNG CANCER SCREENING HISTORY: NICOTINE DEPENDENCE, CIGARETTES TECHNIQUE: Axial imaging performed from the apices to 1 cm below the costophrenic angles. Coronal and sagittal reformats are submitted with axial MIP series. All CT scans at [facility] use at least one of these dose optimization techniques: automated exposure control; mA and/or kV adjustment per patient size (includes targeted exams where dose is matched to clinical indication); or iterativ e reconstruction. DLP: 79.31 mGy.cm DIvol: Mean CTDIvol: 1.70 (mGy) COMPARISON: 06/15/2018 Diagnostic quality: Satisfactory Lungs: Hyperexpanded lungs. Marked centrilobular emphysema. 2 mm nodule image 43 of series 3 LEFT upp er lobe. 4 mm nodule LEFT lower lobe, image 95 of series 3. Bilateral mild lower lobe bronchial wall thickening. Endobronchial soft tissue causing mild dilatation of the RIGHT lower lobe bronchus. There is a soft tissue nodule measuring 11 mm in the lumen. Heart: Normal size heart with no pericardial effusion.. Extensive coronary artery calcifications. Other findings: Advanced atherosclerosis thoracic aorta extending into the great vessels. LEFT subcla vian pacer. No mediastinal or hilar adenopathy. Advanced suprarenal aortic calcifications and mesente sacha artery calcification. No adrenal mass. Increase in thoracic kyphosis with osteopenia. Stable scle rotic changes posterior RIGHT upper thorax rib. CT/CT lung screening [id number] IMPRESSION: LUNG-RADS: 4A-Probably Suspicious FOLLOW UP: 3 Month LDCT OTHER FINDINGS (S MODIFIER): None. Short-term follow-up recommended to reevaluate the possible endobronchial nodul e versus retained secretions RIGHT lower lobe.
== END 2024-06-03 10:16 | disposition home or self-care (01) ==
PROVIDERS: PCP Nurse Practitioner Family; Visit Provider Nurse Practitioner Family
DX: F17.210 Nicotine dependence, cigarettes, uncomplicated (principal); J43.2 Centrilobular emphysema; R91.8 Other nonspecific abnormal finding of lung field; I70.0 Atherosclerosis of aorta
CPT/HCPCS: 71271

== ENCOUNTER → 2024-07-09 11:03 | Outpatient (BNVA) | payer MEDICARE, MEDICAID, SELFPAY | PROVIDERS: PCP Nurse Practitioner Family; Visit Provider Internal Medicine Rheumatology | DX: M45.0 Ankylosing spondylitis of multiple sites in spine (principal); Z79.899 Other long term (current) drug therapy; Z15.89 Genetic susceptibility to other disease; Z71.85 Encounter for immunization safety counseling; R00.0 Tachycardia, unspecified; R09.02 Hypoxemia; E11.22 Type 2 diabetes mellitus with diabetic chronic kidney disease; N18.9 Chronic kidney disease, unspecified; M10.9 Gout, unspecified; C64.9 Malignant neoplasm of unspecified kidney, except renal pelvis; M15.9 Polyosteoarthritis, unspecified; S83.511A Sprain of anterior cruciate ligament of right knee, initial encounter; S83.206A Unspecified tear of unspecified meniscus, current injury, right knee, initial encounter; X58.XXXA Exposure to other specified factors, initial encounter; I73.9 Peripheral vascular disease, unspecified; I25.10 Atherosclerotic heart disease of native coronary artery without angina pectoris; E78.00 Pure hypercholesterolemia, unspecified | CPT/HCPCS: 99214 ==

== ENCOUNTER 2024-09-06 11:39 | Outpatient (CLI) | payer MEDICARE, MEDICAID, SELFPAY ==
--- NOTE | 2024-09-06 11:41 | CT_ITS ---
WS: [id number] CT chest wo con [id number] HISTORY: SOLITARY PULMONARY NODULE TECHNIQUE: Axial imaging performed through the thorax. Coronal and sagittal reformats are submitted. All CT scans at [facility] use at least one of these dose optimization techniques: automated exposure control; mA and/or kV adjustment per patient size (includes targeted exams where dose is mat ched to clinical indication); or iterative reconstruction. CONTRAST: None DLP: 472.58 mGy.cm COMPARISON: 06/03/2024 Lungs and central airway: Ovoid soft tissue nodule measuring 10 x 7 mm in the RIGHT lower lobe. The e xact position is difficult to determine. This may be an endobronchial lesion or between early branchi ng pattern of the RIGHT lower lobe bronchial tree. There is been no improvement since the prior study . Lungs are hyperexpanded. Micronodules in the LEFT upper lobe are stable. Retained mucus along the RIG HT lateral trachea. Tracheal secretion is new. Pleura: Normal. No pleural effusion. Heart and pericardium: Normal size heart with no pericardial effusion. Mediastinum and chante: No mediastinal or hilar adenopathy identified on this unenhanced exam. Vessels: Moderate atherosclerotic plaque aorta. Normal size pulmonary artery. Chest wall and lower neck: LEFT subclavian dual-lead defibrillator. Upper abdomen: Advanced suprarenal aortic calcifications. Splenic and renal artery calcifications. No adrenal mass. Osseous structures: Advanced degenerative changes in the thoracic spine. CT/CT chest wo con [id number] IMPRESSION: 1. Continued fullness closely associated with the RIGHT lower lobe bronchus an d adjacent pulmonary artery. It is difficult to determine whether this is an in traluminal bronchial nodule or the adjacent vessel. Soft tissue nodule measures 10 x 7 mm. No interval change since 06/03/2024. Recommend continued serial evalu ation. Additional imaging may include 3-month follow-up chest CT with IV contra st. IV contrast will be very important to determine the exact location. PET/CT or bronchoscopy may provide additional information also at this time. 2. Emphysema. No change in the micronodules in the LEFT upper lobe. 3. No mediastinal or hilar adenopathy identified. 4. Atherosclerosis thoracic aorta and suprarenal aorta.
== END 2024-09-06 11:40 | disposition home or self-care (01) ==
LOC: RAD 11:40
PROVIDERS: PCP Nurse Practitioner Family; Visit Provider Nurse Practitioner Family
DX: R91.1 Solitary pulmonary nodule (principal); R09.3 Abnormal sputum; I70.0 Atherosclerosis of aorta; Z95.810 Presence of automatic (implantable) cardiac defibrillator; D73.89 Other diseases of spleen; I70.1 Atherosclerosis of renal artery; M51.34 Other intervertebral disc degeneration, thoracic region
CPT/HCPCS: 71250

== ENCOUNTER → 2025-02-27 10:06 | Outpatient (BNVA) | payer MEDICARE, MEDICAID, SELFPAY | PROVIDERS: PCP Nurse Practitioner Family; Visit Provider Podiatrist Foot & Ankle Surgery | DX: E11.621 Type 2 diabetes mellitus with foot ulcer (principal); L97.514 Non-pressure chronic ulcer of other part of right foot with necrosis of bone; I73.9 Peripheral vascular disease, unspecified; Z89.411 Acquired absence of right great toe; Z89.421 Acquired absence of other right toe(s); N18.9 Chronic kidney disease, unspecified; L03.115 Cellulitis of right lower limb | CPT/HCPCS: 11042; 73630; 87070; 87075; 87186; 87205; 99214 ==

== ENCOUNTER 2025-03-03 10:42 | Day surgery (SDC) | payer MEDICARE, MEDICAID, SELFPAY ==
[2025-03-03] VITALS (7 sets, daily range): BP systolic 98–117; BP diastolic 52–66; PULSE 99–100; RESP 18–20; TEMP 36.1–36.5; O2SAT 95–98; BMI 25.7
[2025-03-03] MEDS: sodium chloride 0.9% 1,000 ML 30 ML IV (11:13)
[2025-03-03 11:15] LABS: Glucose Point of Care 101 mg/dL (70-110)
[2025-03-03 11:19] LABS: Basophils # 0.1 10^3/uL (0.0-0.1); Basophils % 1.2 %; Eosinophils # 0.1 10^3/uL (0.0-0.8); Eosinophils % 2.2 %; Hematocrit 46.3 % (37-53); Lymphocytes # 1.6 10^3/uL (0.8-4.8); Lymphocytes % 26.8 %; Mean Corpuscular HGB Conc 32.2 g/dL (30-55); Mean Corpuscular Hemoglobin 31.2 pg (27-33); Mean Corpuscular Volume 97.1 fl (82-101); Mean Platelet Volume 9.8 fL (7.4-10.4); Monocytes # 0.6 10^3/uL (0.2-0.9); Monocytes % 9.6 %; Neutrophils % 59.9 %; Nucleated Red Blood Cells % 0 %; Platelet Count 203 10^3/cmm (157-399); Red Blood Count 4.77 10^6/uL (3.85-5.65); Red Cell Distribution Width 15.9 % (12.1-15.1); White Blood Count 5.85 10^3/uL (3.29-11.43)
--- NOTE | 2025-03-03 11:21 | ANES.PREANE2 ---
Pre-Anesthetic Assessment Height/Weight: Height 1.8 m Weight 83.915 kg Preop Diagnosis: Osteomyelitis right third toe Operation Date: 03/03/25 12:00 Proposed Procedures p RIGHT Third Toe Amputation(Right) - Gerald Burr DPM Familial anesthetic complications: None Was Beta Clarence taken within 24 hours: Yes Was Clonidine taken within 24 hours: N/A Last intake: > 8 hrs Social Tobacco and No alcohol Exam alert, oriented x 3 and regular rate & rhythm coarse breath sounds b/l Airway Mallampati: Class II Dentition: other (none) Comments: Comments: bonner CV/HEM Atrial Fibrillation, Coronary Artery Disease, Congestive Heart Failure, Myocardial Infarction and Peripheral Vascular Disease pacemaker Ef 40$ Chronic Renal Insufficiency Metabolic Hyperlipidemia Anesthetic Plan ASA status: 4 Anesthesia: MAC Risk of > 500 ml blood loss (7ml/kg in children): No Medications/Allergies Home Medications ?Medication ?Instructions ?Recorded ?Confirmed ?Last Taken ?Type vitamin B complex (B 1 tab PO DAILY 10/04/19 02/28/25 02/28/25 History Complex-Vitamin B12 tablet) amlodipine 2.5 mg tablet 2.5 mg PO DAILY #90 tabs 01/14/20 02/28/25 03/02/25 Rx Held on 11/25/22. Instructions: hypotension ezetimibe 10 mg tablet 10 mg PO DAILY #90 tabs 01/15/20 02/28/25 03/02/25 Rx rosuvastatin 40 mg tablet (Crestor) 40 mg PO DAILY 06/04/20 02/28/25 03/02/25 History gabapentin 300 mg capsule 300 mg PO TID 06/30/21 02/28/25 03/02/25 History ipratropium 20 mcg-albuterol 100 2 puff inhalation Q4H PRN 06/30/21 02/28/25 02/28/25 History mcg/actuation mist for inhalation shortness of breath or wheezing cholecalciferol (vitamin D3) 50 50 mcg PO DAILY 08/31/21 02/28/25 03/02/25 History mcg (2,000 unit) capsule dapagliflozin propanediol 10 mg 10 mg PO DAILY 01/04/22 02/28/25 03/02/25 History tablet (Farxiga) tramadol 50 mg tablet 50 mg PO Q6H PRN Pain 05/18/22 02/28/2525 History Diabetic shoes with 3 sets of #1 ea 05/24/22 02/27/25 Unknown Rx inserts with toe filler on right omega-3 fatty acids-fish oil 684 1 cap PO DAILY 09/07/22 02/28/25 02/28/25 History mg-1,200 mg capsule,delayed release Cam Boot #1 ea 01/23/23 02/27/25 Unknown Rx nitroglycerin 0.4 mg sublingual 0.4 mg sublingual Q5M PRN chest 06/05/23 02/28/25 02/26/25 Rx tablet pain #30 tabs metoprolol tartrate 25 mg tablet 12.5 mg (1/2 x 25 mg) PO BID #90 01/19/24 02/28/25 03/02/25 Rx tabs sacubitril 24 mg-valsartan 26 mg 1 tab PO BID #180 tabs 03/11/24 02/28/25 03/02/25 Rx tablet (Entresto) sulfasalazine 500 mg tablet 0.5 g PO BID #60 tabs 07/09/24 02/28/25 02/28/25 Rx apixaban 5 mg tablet (Eliquis) 5 mg PO BID #180 tabs 09/24/24 02/28/25 02/27/25 Rx clopidogrel 75 mg tablet 75 mg PO DAILY #90 tabs 11/07/24 02/28/25 02/27/25 Rx secukinumab 150 mg/mL subcutaneous 300 mg (2 mL) SUBCUT .[id number] 11/28/24 02/28/25 02/28/25 Rx syringe (Cosentyx) ankylosing spondyltis #2 mL sulfamethoxazole 800 1 tab PO BID #14 tabs 02/27/25 02/28/25 02/28/25 Rx mg-trimethoprim 160 mg tablet (Bactrim DS) Allergies Allergy/AdvReac Type Severity Reaction Status Date / Time ciprofloxacin (From Cipro) Allergy ALGY-Hives Verified 02/27/25 09:56 lisinopril AdvReac Mild cough Verified 02/27/25 09:56 [facility] Anesthesia Medical History Diabetes Anticoagulation adequate with anticoagulant therapy Hypoxemia Tachycardia Axial spondyloarthritis Osteoarthritis of knees, bilateral Benign essential HTN HLA B27 (HLA B27 positive) Atrial fibrillation Diabetes mellitus type 2, diet-controlled Hypertension Atherosclerosis of [place] coronary artery of [place] heart without angina pectoris CHF (congestive heart failure) Carotid stenosis Hyperlipidemia PSA elevation Erectile dysfunction Displacement of femoral arterial bypass graft CKD (chronic kidney disease) H/O renal cell cancer Ankylosing spondylitis Gout, arthritis Localized osteoarthritis of left knee PAD (peripheral artery disease) history of right superficial femoral artery bypass Surgical History Status post colonoscopy History of cardiac radiofrequency ablation History of femoropopliteal bypass History of kidney surgery FROZE KIDNEY DUE TO KIDNEY CANCER History of permanent cardiac pacemaker placement 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 History of carotid endarterectomy History of back surgery History of elbow surgery H/O heart surgery History of shoulder surgery left History of pacemaker Family History Father , AT AGE 80 CAD (coronary artery disease) Family history of premature coronary artery disease Dementia Brother Family history of premature coronary artery disease Dementia Diabetes Sister Cancer oldest Sister Cancer youngest Mother , AT AGE 84 Dementia Denies family history of Clotting disorder Hyperlipidemia Psychiatric illness Chronic kidney disease (CKD) Suicide Anesthesia complication Bleeding disorder Lung disease Hypertension Stroke Social History Smoking and tobacco/nicotine status: never used tobacco/nicotine Second hand smoke exposure: Yes Alcohol intake: current Alcohol intake frequency: few times a week Alcohol type: beer Substance/Drug Use: never Lives independently: No Household members: spouse Marital status: Current occupational status: retired Data Anesthesia 03/03/25 11:11 03/03/25 11:11 Short CBC 03/03/25 Range/Units 11:11 WBC 5.85 (3.29-11.43) 10^3/uL Hgb 14.90 (11.27-16.99) g/dL Hct 46.3 (37-53) % MCV 97.1 (82-101) fl Plt Count 203 (157-399) 10^3/cmm Neut % (Auto) 59.9 % Neut # (Auto) 3.50 (1.8-7.7) 10^3/uL Cardiac Studies: Echocardiogram 07/29/22 Sestamibi Stress Test (Cardiology) 02/03/22 Holter Monitor 09/27/22
[2025-03-03 11:37] LABS: Anion Gap 15.8 (5-19); Blood Urea Nitrogen 16 mg/dL (8-23); Carbon Dioxide 25 mmol/L (22-29); Chloride 103 mmol/L (98-107); Creatinine Clr Calc Pharmacy 45.1149; Glucose 114 mg/dL (65-115); Osmolality Calculated 290 mOsm/kg (285-295); Potassium 4.8 mmol/L (3.5-5.1); Sodium 139 mmol/L (136-145)
--- NOTE | 2025-03-03 11:45 | W.PM.OPSUD ---
Surgery/Procedure H&P Update DATE OF PROCEDURE: March 03, 2025 DATE H&P PERFORMED: 02/27/25 H&P UPDATE INFORMATION: I have reviewed H&P completed within last 30 days, I have examined patient prior to procedure, No changes to prior documentation and Risks and benefits of the procedure reviewed PREOP DIAGNOSIS: Osteomyelitis right third toe PLANNED PROCEDURE: Operation Date: 03/03/25 12:00 Proposed Procedures p RIGHT Third Toe Amputation(Right) - Gerald Burr DPM
[2025-03-03] MEDS: ceFAZolin 2,000 mg SDV 2000 MG IVP (11:56)
[2025-03-03] MEDS: lidocaine 1% 10 ML INJ 20 ML INJECTION (12:05)
[2025-03-03] MEDS: BUPivacaine 0.5% INJ 30 mL INJECTION (12:05)
--- NOTE | 2025-03-03 12:35 | P.BOP_ITS ---
Date of Procedure: 12/08/23 Surgeon: Gerald Burr DPM Front End Developer(s): Jaun Procedure(s) performed: Right third toe amputation. Findings of the procedure(s): Osteomyelitis right third toe. Estimated blood loss: 5 mL Specimen(s) removed: Right third toe sent to pathology Post-operative diagnosis: Osteomyelitis right third toe
--- NOTE | 2025-03-03 12:36 | P.OP_ITS ---
Operative Report Date of procedure: March 03, 2025 Pre-op diagnosis: Osteomyelitis right foot. L97.514 Post-op diagnosis: Osteomyelitis right foot. L97.514 Post-op findings: Osteomyelitis right foot third toe. Procedure done: Right third toe amputation. CPT code 42451 Implants: 3-0 Vicryl, 4-0 nylon Specimens removed/disposition: Wound culture taken prior to surgery in clinic 02/27/2025 significant for Staph epidermidis and strep group B Pathology: Right third toe sent to pathology for permanent Surgeon: Gerald Burr DPM Litigation Legal Assistant: Jaun Estimated blood loss: 5 15 IV fluids: See intraoperative documentation Urine output: No urine output Complications: No complications Findings: Devitalized bone right third toe clean margins at metatarsal phalangeal joint. Brief History: 74-year-old male with history of Type 2 Diabetes Mellitus presenting with a right third toe infection, complicated by osteomyelitis extending to the tendon and bone. The infection represents a severe localized problem requiring surgical intervention to excise the affected area due to the significant risk of progression that could lead to the loss of more of the foot if untreated. 1. Diabetic Foot Infection The patient's right third toe infection, associated with osteomyelitis, will be managed through surgical intervention. The plan includes preoperative administration of Trimethoprim/sulfamethoxazole to address the infection and minimize inflammation. A right third toe amputation is scheduled to take place as an outpatient procedure on Monday. Discussed the necessity of surgery to avert further damage and emphasized compliance with postoperative care, including wound management and monitoring for signs of reinfection or complications. - Take prescribed antibiotics with breakfast and dinner. - Plan for surgery on Monday, arriving by 10:30 AM. - Avoid driving post-surgery; arrange transportation home. - Avoid further injury or stress to the affected toe. - Follow up with wound care and report signs of reinfection. The patient's clinical status indicates a serious infection in the right third toe, complicated by the underlying diabetes mellitus. The infection has progressed to osteomyelitis, necessitating surgical intervention to prevent further complications, such as amputation of additional tissue beyond the toe. The surgical option of third toe amputation reflects the focal nature of the disease and the lack of systemic symptoms. Preoperative management includes antibiotic therapy to control the infection, with clear instructions for postoperative care to mitigate the risk of reinfection. Surgical intervention is prioritized to curb the advancement of infection and plan is in place to ensure prompt and effective patient recovery through outpatient care. X-ray right foot 3 views demonstrates bony destruction of the distal phalanx consistent with osteomyelitis along with triplane deformity of the right third toe. I reviewed at length with the patient, the risks, potential complications, benefits, alternatives, expectations, and typical outcomes associated with the surgery. The risks and potential complications were explained in detail, including but not limited to infection, wound dehiscence or soft tissue complications, bleeding and hematoma, chronic edema, neuritis or nerve damage producing numbness or chronic pain, CRPS, failure to relieve pain or worsening pain, thick / painful / unsightly scar, limited motion / stiffness, malposition, delayed union, malunion, or nonunion, fracture, reaction to implants, anesthetic complications, venous thromboembolism, and deformity recurrence. I discussed the notion of no regrets with the patient as it pertains to complications and outcomes. The patient seemed to understand the nature of the proposed care and required convalescence. They asked appropriate questions, answered to their satisfaction. They are aware no guarantees can be made as to a satisfactory outcome and they understand there may be other possible unforeseen complications or outcomes not listed here that will be treated accordingly if they arise. There were no written or implied guarantees given to the patient. They gave informed consent to proceed. Procedure: Under mild sedation the patient was brought to the operating room and remained on the gurney in supine position. A timeout was performed. Anesthesia was then administered by the anesthesia service. Local anesthesia injected by myself consisting of 20 cc of one-to-one mixture 1% lidocaine and 0.5% Marcaine plain in a right third ray block fashion, right foot. Well-padded pneumatic tourniquet applied to the right ankle. The right lower extremity was scrubbed, prepped and draped utilizing normal aseptic technique. Right foot was then elevated and tourniquet inflated to 250 mmHg. Attention was directed to the right third toe which was noted to have a full- thickness wound exposed to tendon and bone plantarly and surrounding erythema. Incision was performed in a similar elliptical vertical fashion encompassing the right third toe at the level of the metatarsal phalangeal joint maintaining adequate skin for closure, full-thickness incision carried out with a #15 blade and the right third toe was sharply disarticulated at the third metatarsal phalangeal joint of the right foot, right third toe was passed from the operative field to be sent to pathology for permanent. Incision was irrigated with copious amounts of sterile saline solution as well as Irrisept. All bleeders were ligated and cauterized as necessary. Extensor and flexor tendons transected under traction at the most proximal margin. Head of the right third metatarsal appeared to be of appropriate density and color and viable skin margins with adequate soft tissue for closure. The incision was then closed in a layered fashion with deep fascia and subcutaneous tissue reapproximated with 3-0 Vicryl and skin with 4-0 nylon. The incision was dressed with Xeroform, sterile gauze, Kerlix, Suraj wrap and application of a cam boot. Tourniquet was deflated and a prompt hyperemic response is noted to the remaining 2 digits of the right foot digits 4 and 5. Patient tolerated the procedure and anesthesia well and was transferred to the PACU with vital signs stable and vascular status intact. Following a period of postoperative monitoring he will be discharged home without home care instructions and scheduled follow-up.
--- NOTE | 2025-03-03 13:35 | ANE.PACU2 ---
Inpatient post-anesthesia follow up: Airway intact: Yes Vital signs: Temperature 97.7 F Pulse Rate 100 Respiratory Rate 18 Blood Pressure 104/52 Pulse Oximetry 98 Oxygen Delivery Me thod Room Air Oxygen Flow Rate Fraction of Inspir ed Oxygen Hydration adequate: Yes Nausea and vomiting: No Pain level: 1 Mental status: Baseline
== END 2025-03-03 13:32 | disposition home or self-care (01) ==
PROVIDERS: PCP Nurse Practitioner Family; Visit Provider Podiatrist Foot & Ankle Surgery
PROC: (CPT 28820; principal; 2025-03-03 12:00)
DX: E11.69 Type 2 diabetes mellitus with other specified complication (principal); M86.171 Other acute osteomyelitis, right ankle and foot; I13.0 Hypertensive heart and chronic kidney disease with heart failure and stage 1 through stage 4 chronic kidney disease, or unspecified chronic kidney disease; L97.514 Non-pressure chronic ulcer of other part of right foot with necrosis of bone; E11.621 Type 2 diabetes mellitus with foot ulcer; E11.22 Type 2 diabetes mellitus with diabetic chronic kidney disease; N18.9 Chronic kidney disease, unspecified; I48.91 Unspecified atrial fibrillation; I25.10 Atherosclerotic heart disease of native coronary artery without angina pectoris; I50.9 Heart failure, unspecified; I25.2 Old myocardial infarction; E78.5 Hyperlipidemia, unspecified; Z79.899 Other long term (current) drug therapy; Z79.01 Long term (current) use of anticoagulants; Z79.02 Long term (current) use of antithrombotics/antiplatelets; Z85.528 Personal history of other malignant neoplasm of kidney; E11.51 Type 2 diabetes mellitus with diabetic peripheral angiopathy without gangrene; M10.9 Gout, unspecified; Z95.0 Presence of cardiac pacemaker
CPT/HCPCS: 28820; 36415; 36416; 80048; 82962; 85025; 88305; 88311; J0690; J2371; J2704; J3010; J3490; J7030; J9999

== ENCOUNTER → 2025-03-11 12:53 | Outpatient (BNVA) | payer MEDICARE, MEDICAID, SELFPAY | PROVIDERS: PCP Nurse Practitioner Family; Visit Provider Podiatrist Foot & Ankle Surgery | DX: I73.9 Peripheral vascular disease, unspecified (principal); Z89.421 Acquired absence of other right toe(s); N18.9 Chronic kidney disease, unspecified; L03.115 Cellulitis of right lower limb; Z89.411 Acquired absence of right great toe | CPT/HCPCS: 99214 ==

== ENCOUNTER → 2025-03-25 11:27 | Outpatient (BNVA) | payer MEDICARE, MEDICAID, SELFPAY | PROVIDERS: PCP Nurse Practitioner Family; Visit Provider Podiatrist Foot & Ankle Surgery | DX: I73.9 Peripheral vascular disease, unspecified (principal); Z89.421 Acquired absence of other right toe(s); N18.9 Chronic kidney disease, unspecified; Z89.411 Acquired absence of right great toe | CPT/HCPCS: 99213 ==

== ENCOUNTER → 2025-03-27 14:16 | Outpatient (BNVA) | payer MEDICARE, MEDICAID, SELFPAY | PROVIDERS: PCP Nurse Practitioner Family; Visit Provider Internal Medicine Cardiovascular Disease | DX: I25.10 Atherosclerotic heart disease of native coronary artery without angina pectoris (principal); I49.5 Sick sinus syndrome; I10 Essential (primary) hypertension; Z79.01 Long term (current) use of anticoagulants; Z95.0 Presence of cardiac pacemaker; F17.200 Nicotine dependence, unspecified, uncomplicated; I25.2 Old myocardial infarction | CPT/HCPCS: 99214 ==

== ENCOUNTER → 2025-04-08 11:31 | Outpatient (BNVA) | payer MEDICARE, MEDICAID, SELFPAY | PROVIDERS: PCP Nurse Practitioner Family; Visit Provider Podiatrist Foot & Ankle Surgery | DX: I73.9 Peripheral vascular disease, unspecified (principal); L60.3 Nail dystrophy; N18.9 Chronic kidney disease, unspecified; Z89.411 Acquired absence of right great toe; Z89.421 Acquired absence of other right toe(s); L98.8 Other specified disorders of the skin and subcutaneous tissue | CPT/HCPCS: 11720; 99213 ==

== ENCOUNTER → 2025-04-30 13:50 | Outpatient (BNVA) | payer MEDICARE, MEDICAID, SELFPAY | PROVIDERS: PCP Nurse Practitioner Family; Visit Provider Internal Medicine | DX: R91.1 Solitary pulmonary nodule (principal); I50.32 Chronic diastolic (congestive) heart failure; I13.0 Hypertensive heart and chronic kidney disease with heart failure and stage 1 through stage 4 chronic kidney disease, or unspecified chronic kidney disease; N18.9 Chronic kidney disease, unspecified; I25.5 Ischemic cardiomyopathy; R06.00 Dyspnea, unspecified; J43.9 Emphysema, unspecified; I48.91 Unspecified atrial fibrillation; F17.210 Nicotine dependence, cigarettes, uncomplicated | CPT/HCPCS: 99205 ==

== ENCOUNTER 2025-05-28 09:41 | Outpatient (CLI) | payer OTHER, MEDICAID, SELFPAY ==
[2025-05-28 10:01] VITALS: PULSE 98; RESP 18; O2SAT 94
== END 2025-05-28 09:42 | disposition home or self-care (01) ==
LOC: RT 09:42
PROVIDERS: PCP Nurse Practitioner Family
DX: R06.00 Dyspnea, unspecified (principal)
CPT/HCPCS: 94060; 94726; 94729

== ENCOUNTER 2025-05-29 09:44 | Outpatient (CLI) | payer OTHER, MEDICAID, SELFPAY ==
--- NOTE | 2025-05-29 10:00 | CT_ITS ---
WS: [id number] CT chest ION (PULM ONLY) [id number] HISTORY: lung nodule TECHNIQUE: Axial imaging performed through the thorax. CONTRAST: None DLP: None submitted. COMPARISON: 09/06/2024 New small bilateral layering pleural effusions. Focal area of groundglass attenuation in the medial RIGHT upper lobe abutting the mediastinum. Previously described soft tissue nodule in the RIGHT lower lobe bronchus is longer identified. There is mild bronchial wall thickening but no nodule or obstruction of the bronchus. LEFT subclavian pacer. Moderate atherosclerosis within the thoracic aorta. Normal size pulmonary artery. Mild cardiomegaly. Small hiatal hernia. Suprarenal aortic calcifications. Dense calcifications continue into the celiac axis and splenic artery. No adrenal mass. CT/CT chest ION (PULM ONLY) [id number] IMPRESSION: Limited chest CT performed for navigational bronchoscopy. New small bilateral pleural effusions.
== END 2025-05-29 09:45 | disposition home or self-care (01) ==
LOC: RAD 09:45
PROVIDERS: PCP Nurse Practitioner Family; Visit Provider Internal Medicine
DX: R91.1 Solitary pulmonary nodule (principal); J90 Pleural effusion, not elsewhere classified; J92.9 Pleural plaque without asbestos; I51.7 Cardiomegaly; K44.9 Diaphragmatic hernia without obstruction or gangrene
CPT/HCPCS: 71250

== ENCOUNTER → 2025-06-04 13:47 | Outpatient (BNVA) | payer OTHER, MEDICAID, SELFPAY | PROVIDERS: PCP Nurse Practitioner Family; Visit Provider Podiatrist Foot & Ankle Surgery | DX: I73.9 Peripheral vascular disease, unspecified (principal); Z89.421 Acquired absence of other right toe(s); N18.9 Chronic kidney disease, unspecified; Z89.411 Acquired absence of right great toe | CPT/HCPCS: 99213 ==

== ENCOUNTER → 2025-06-12 09:05 | Outpatient (BNVA) | payer OTHER, MEDICAID, SELFPAY | PROVIDERS: PCP Nurse Practitioner Family; Visit Provider Internal Medicine Rheumatology | DX: M45.0 Ankylosing spondylitis of multiple sites in spine (principal); Z15.89 Genetic susceptibility to other disease; Z79.899 Other long term (current) drug therapy; Z71.85 Encounter for immunization safety counseling; R00.0 Tachycardia, unspecified; R09.02 Hypoxemia; M10.9 Gout, unspecified; Z89.421 Acquired absence of other right toe(s); C64.2 Malignant neoplasm of left kidney, except renal pelvis; N18.9 Chronic kidney disease, unspecified; E11.22 Type 2 diabetes mellitus with diabetic chronic kidney disease; M15.9 Polyosteoarthritis, unspecified | CPT/HCPCS: 36415; 80048; 80076; 82306; 85025; 85651; 86140; 86480; 99214 ==

== ENCOUNTER → 2025-06-30 12:53 | Outpatient (BNVA) | payer OTHER, MEDICAID, SELFPAY | PROVIDERS: PCP Nurse Practitioner Family; Visit Provider Internal Medicine | DX: J43.9 Emphysema, unspecified (principal); R91.1 Solitary pulmonary nodule; Z71.6 Tobacco abuse counseling; F17.210 Nicotine dependence, cigarettes, uncomplicated | CPT/HCPCS: 99214; Q3014 ==

== ENCOUNTER 2025-07-03 06:30 | Outpatient (CLI) | payer OTHER, MEDICAID, SELFPAY ==
--- NOTE | 2025-07-03 07:00 | USCV_ITS ---
Eloy Dyer Age: 75 Gender: M : 1950 Exam Date: 07/03/2025 06:44 Ordering Phys: Richie Rodríguez MD Technologist: Exam Location: [facility] [place] [facility] [place] Indication: cp sob BP: 120 / 70 HR: 159 Rhythm: Sinus Technical Quality: Adequate MEASUREMENTS (Male / Female) Normal Values 2D ECHO LV Diastolic Diameter PLAX 4.9 cm 4.2 - 5.9 / 3.9 - 5.3 cm IVS Diastolic Thickness 1.7 cm 0.6 - 1.0 / 0.6 - 0.9 cm IVS Systolic Thickness 1.8 cm LVPW Diastolic Thickness 1.1 cm 0.6 - 1.0 / 0.6 - 0.9 cm LVPW Systolic Thickness 1.3 cm LVOT Diameter 2.1 cm LV Ejection Fraction 2D Teich 22.4 % LV Ejection Fraction MOD 4C 31.6 % LV Ejection Fraction MOD 2C 31.5 % LV Ejection Fraction 2C AL 30.0 % LA Diameter 4.5 cm RA Systolic Volume 4C AL 69.5 ml RA Systolic Volume 4C MOD 67.0 ml LA Sys Volume AL 93.6 cm cubed LA Sys Volume Index AL 45.4 cm cubed/m squared Aorta at Sinotubular Diameter 2.5 cm M-MODE LA Ao Ratio MM 1.0 AV Cusp Separation MM 2.1 cm DOPPLER AV Peak Velocity 105.0 cm/s LVOT Peak Velocity 65.0 cm/s AV Area Cont Eq vti 2.2 cm squared AV Area Cont Eq pk 2.2 cm squared MV Peak Velocity 116.0 cm/s MV Area PHT 8.0 cm squared Mitral E to A Ratio 0.9 TR Peak Velocity 331.0 cm/s TR Peak Gradient 43.8 mmHg TV Peak E Velocity 109.0 cm/s PV Peak Velocity 71.0 cm/s FINDINGS Left Ventricle Moderately increased left ventricular cavity size. Severely decreased left ventricular systolic function. Left ventricular ejection fraction is estimated at 20-25 %.. There is global hypokinesis with gabriel anterior and mid to distal septal and apical akinesis.Grade IV/IV diastolic dysfunction (irreversible restrictive filling pattern), severely elevated filling pressures. Right Ventricle Catheter/pacemaker wire visualized in the right ventricle. Right Atrium Mildly increased right atrial size. Catheter/pacemaker wire in the right atrial cavity. There appeared to be echogenic mass around atrial lead coukd be tissue growth however cannot rule out vegetation if clinically indicated ERENDIRA is a good modality to further investigate. Left Atrium Moderately increased left atrial size. IA Septum Normal appearance of the interatrial septum. Mitral Valve Moderately thickened mitral valve. No mitral valve stenosis. Moderate-severe mitral valve regurgitation. Aortic Valve Severe aortic valve calcification. Mild aortic valve stenosis, mean gradient 1.8 mmHg, KIRIT 2.2 cm squared. Trace aortic valve regurgitation. Cannot rule out pseudo Aortic valve strenosis. Tricuspid Valve Mrpiedhl-tl-ssevbl tricuspid valve regurgitation. Pulmonic Valve Normal pulmonic valve structure. No pulmonic valve stenosis or regurgitation. Pericardium No pericardial effusion. Aorta Normal diameter of the aortic root and ascending thoracic aorta. IVC Inferior vena cava not visualized. CONCLUSIONS Moderately increased left ventricular cavity size. Severely decreased left ventricular systolic function. Left ventricular ejection fraction is estimated at 20-25 %.. There is global hypokinesis with gabriel anterior and mid to distal septal and apical akinesis.Grade IV/IV diastolic dysfunction (irreversible restrictive filling pattern), severely elevated filling pressures. Mildly increased right atrial size. Catheter/pacemaker wire in the right atrial cavity. There appeared to be echogenic mass around atrial lead coukd be tissue growth however cannot rule out vegetation if clinically indicated ERENDIRA is a good modality to further investigate. Moderately increased left atrial size. Severe aortic valve calcification. Mild aortic valve stenosis, mean gradient 1.8 mmHg, KIRIT 2.2 cm squared. Trace aortic valve regurgitation. Cannot rule out pseudo Aortic valve strenosis. Libyvvgx-lk-azwzin tricuspid valve regurgitation. Moderately thickened mitral valve. No mitral valve stenosis. Moderate-severe mitral valve regurgitation. There is no pericardial effusion. April Kelly MD (Electronically Signed) Final Date: 03 July 2025 12:40 S
== END 2025-07-03 06:31 | disposition home or self-care (01) ==
LOC: RAD 06:31
PROVIDERS: PCP Nurse Practitioner Family; Visit Provider Internal Medicine
DX: I51.7 Cardiomegaly (principal); I51.89 Other ill-defined heart diseases; Z95.0 Presence of cardiac pacemaker; I70.0 Atherosclerosis of aorta; I35.0 Nonrheumatic aortic (valve) stenosis; I34.0 Nonrheumatic mitral (valve) insufficiency
CPT/HCPCS: 93306

== ENCOUNTER 2025-07-04 12:40 | Outpatient (CLI) | payer OTHER, MEDICAID, SELFPAY ==
--- NOTE | 2025-07-04 14:30 | PETR_ITS ---
PROCEDURE INFORMATION: Exam: PET/CT Skull Base to Mid-thigh Exam date and time: 07/04/2025 1:58 PM Age: 75 years old Clinical indication: Symptoms: Lung nodule LABS AND CLINICAL REPORTS: Glucose: 100 mg/dl Treatment strategy for malignancy (PET staging): Initial Staging (PI) TECHNIQUE: Imaging protocol: Following at least four-hour fasting and following the injection of radiopharmaceutical, low dose CT images were obtained. Then, PET images were obtained. Attenuation corrected images were constructed using the CT scan. Fused images of PET and CT were reviewed. The standardized uptake values (SUV) reported below are maximum values within a region of interest, expressed in gm/ml. Exam includes orbital meatal line to mid-thigh. SUV normalization method: BodyWeight Radiopharmaceutical: 11.7 mCi F-18 FDG (Fluorodeoxyglucose), IV. Time of imaging post radiopharmaceutical administration: 47 minutes Injection site: L AC COMPARISON: 1. CT lung screening [id number] 06/03/2024 10:[address] abdomen pelvis wo/w [id number] 04/16/2020 8:[address] chest ION (PULM ONLY) [id number] 05/29/2025 9:[address] chest wo con [id number] 09/06/2024 11:42 AM FINDINGS: Tubes, catheters and devices: Dual lead cardiac pacemaker with left chest generator. Brain: Visualized brain has normal physiologic uptake. Pharynx: No abnormal uptake. Larynx: No abnormal uptake. Lungs, pleura and trachea: No abnormal uptake. Non FDG avid 6 mm right middle lobe nodule on axial image 103 is stable from May 2024. Previous right lower lobe bronchial nodular opacity not present on current exam. Slightly decreased ckxyx-btikjqd-feli-left pleural effusions. No consolidation or mass. Heart: Normal physiologic uptake. Coronary arteries: Heavy coronary artery calcification. Mediastinal space: No abnormal uptake. Liver: No abnormal uptake. Gallbladder and biliary ducts: No abnormal uptake. Pancreas: No abnormal uptake. Spleen: No abnormal uptake. Calcified granulomata. Adrenal glands: No abnormal uptake. Kidneys and ureters: Normal physiologic uptake. 1.9 cm fat containing left lower renal focus on axial images 159-161 shows slightly decreased size from March 2020 when it measured 2.2 cm but increased soft tissue density. No associated FDG avidity. Stomach and bowel: No abnormal uptake. Vasculature: No abnormal uptake. Heavy systemic atherosclerotic calcification without aortic aneurysm. Stable right inguinal postsurgical changes with scarring, clips, partially visualized femoral artery stent and bypass graft. Lymph nodes: No abnormal uptake. No lymphadenopathy in the head, neck, chest, abdomen, pelvis, and extremities. Skeleton: No abnormal uptake in the visualized axial and appendicular skeleton. Degenerative change along the axial and proximal appendicular skeletal system. Bilateral sacroiliac joint ankylosis. Soft tissues: No abnormal uptake in the visualized head, neck, chest, abdomen, pelvis, and extremities. Small left inguinal hernia contains fat and nondilated, non thickened small bowel loop. METRICS: Mediastinal blood pool: SUV mean 1.9 Liver uptake: SUV mean 2.3 PET/PET skull to thigh INIT [id number] IMPRESSION: 1. Previous right lower lobe nodular opacity has resolved. 2. Stable non FDG avid 6 mm right middle lobe nodule. Although this favors benignity, note is made that subcentimeter size is below size threshold for accurate FDG assessment. 3. Slightly decreased coefm-kjkglzq-mpwc-left pleural effusions. 4. 1.9 cm fat containing left lower renal focus (previously reported cryoablation) is slightly decreased in size from March 2020 but shows increased soft tissue density. Recommend renal MRI or CT without and with contrast. 5. Additional chronic and incidental findings as above.
== END 2025-07-04 12:41 | disposition home or self-care (01) ==
LOC: RAD 12:41
PROVIDERS: PCP Nurse Practitioner Family; Visit Provider Internal Medicine
DX: R91.1 Solitary pulmonary nodule (principal); Z95.0 Presence of cardiac pacemaker; Z95.820 Peripheral vascular angioplasty status with implants and grafts; L90.5 Scar conditions and fibrosis of skin; M89.8X8 Other specified disorders of bone, other site; M24.69 Ankylosis, other specified joint; K44.9 Diaphragmatic hernia without obstruction or gangrene; R91.8 Other nonspecific abnormal finding of lung field; R93.422 Abnormal radiologic findings on diagnostic imaging of left kidney
CPT/HCPCS: 78815; A9552

== ENCOUNTER 2025-07-10 16:29 | Emergency (ER) | payer OTHER, MEDICAID, SELFPAY ==
[2025-07-10] VITALS (11 sets, daily range): BP systolic 124–157; BP diastolic 56–98; PULSE 73–98; RESP 16; TEMP 36.8; O2SAT 91–94; BMI 25.9
--- NOTE | 2025-07-10 17:14 | ECG_ITS ---
[employer] Test Date: 2025-07-10 Pat Name: Eloy Dyer Department: Room: Gender: Male Chaplaincy: : 1950 Requested By: Sidney Thomas Order Number: [id number] Stepan MD: Deandre Aly M.D. Measurements Intervals [place] Rate: 79 P: 33 OK: 192 QRS: -59 QRSD: 145 T: 141 QT: 415 QTc: 477 Interpretive Statements SINUS RHYTHM WITH OCCASIONAL VENTRICULAR PREMATURE COMPLEXES LEFT AXIS DEVIATION [QRS AXIS < -30] LEFT BUNDLE BRANCH BLOCK [120+ ms QRS DURATION, 80+ ms Q/S IN V1/V2, 85+ ms R IN I/aVL/V5/V6] Compared to ECG 09/07/2022 12:19:37 Ventricular premature complex(es) now present Left-axis deviation now present Left bundle-branch block now present Ventricular-paced complex(es) or rhythm no longer present Electronically Signed On 07-12-2025 12:09:34 CDT by Deandre Aly M.D. [email or web address]
--- NOTE | 2025-07-10 17:14 | XRR_ITS ---
PROCEDURE INFORMATION: Exam: XR Chest Exam date and time: 07/10/2025 6:32 PM Age: 75 years old Clinical indication: Cough and shortness of breath; Additional info: Cough/sob TECHNIQUE: Imaging protocol: Radiologic exam of the chest. Views: 1 view. COMPARISON: CT chest ION (PULM ONLY) [id number] 05/29/2025 9:59 AM FINDINGS: Tubes, catheters and devices: Left-sided pacemaker. Lungs: Right hilar atelectasis versus minimal infiltrate. Pleural spaces: Unremarkable. No pleural effusion. No pneumothorax. Heart/Mediastinum: Cardiomegaly mild pulmonary vascular congestion. Vasculature: Aortic atherosclerotic calcifications. Bones/joints: Unremarkable. XR/XR chest 1V portable [id number] IMPRESSION: 1. Cardiomegaly mild pulmonary vascular congestion. 2. Right hilar atelectasis versus minimal infiltrate. 3. Aortic atherosclerotic calcifications. 4. Left-sided pacemaker.
--- OUTSIDE RECORDS SUMMARY | 2025-07-10 17:15 | XMS_ITS | Clinical Summary ---
Author Organization [facility], [facility] Address [address] [place] [address] Phone Care Team Providers Care Gyn Physician Name Role Phone Erendira San MICHAEL Primary Care Provider [phone] Allergies Active Allergy Reactions Criticality Noted Date Comments Ciprofloxacin Rash Low 02/17/2018 Lisinopril Low 11/30/2020 Medications traMADol (ULTRAM) 50 MG tablet Take 50 mg by mouth every 6 (six) hours if needed 8 Active Cosentyx Sensoready Pen 150 MG/ML solution auto-injector Inject 300 mg under the skin every 28 (twenty-eight) days 2 Active rosuvastatin (CRESTOR) 40 MG tablet Take 40 mg by mouth 1 (one) time each day 0 Active metoprolol tartrate 25 MG tablet Take 12.5 mg by mouth in the morning and 12.5 mg in the evening. 2 Active leflunomide (ARAVA) 20 MG tablet Take 20 mg by mouth 1 (one) time each day 2 Active gabapentin (NEURONTIN) 300 MG capsule Take 300 mg by mouth in the morning and 300 mg at noon and 300 mg in the evening. 2 Active ezetimibe (ZETIA) 10 MG tablet Take 10 mg by mouth 1 (one) time each day 2 Active Diclofenac Sodium 1 % gel apply 4 graMs TWICE DAILY NEEDED FOR bilat knees 0 Active Farxiga 10 MG tablet Take 1 tablet by mouth 1 (one) time each day 2 Active clopidogrel (PLAVIX) 75 MG tablet Take 75 mg by mouth in the morning. Active Eliquis 5 MG tablet Take 5 mg by mouth 1 (one) time each day 2 Active amLODIPine (NORVASC) 2.5 MG tablet Take 2.5 mg by mouth 1 (one) time each day 2 Active allopurinol (ZYLOPRIM) 300 MG tablet Take 300 mg by mouth 1 (one) time each day 2 Active albuterol HFA (PROVENTIL HFA;VENTOLIN HFA) 108 (90 Base) MCG/ACT inhaler Inhale 2 puffs every 6 (six) hours if needed 7 Active omega-3 (FISH OIL) 500 MG capsule Take 500 mg by mouth in the morning. Active Cholecalciferol (Vitamin D) 125 MCG (5000 UT) capsule Take 1 capsule by mouth 1 (one) time each day Active Cyanocobalamin (Vitamin B-12) [address] 1 tablet under the tongue 1 (one) time each day Active Combivent Respimat 20-100 MCG/ACT inhaler USE ONE INHALATION BY MOUTH 4 TIMES DAILY 3 Active Entresto 24-26 MG per tablet Take 1 tablet by mouth in the morning and 1 tablet in the evening. 3 Active celecoxib (CeleBREX) 200 MG capsule Take 200 mg by mouth in the morning and 200 mg in the evening. Active Active Problems Problem Noted Date Diagnosed Date Chronic kidney disease, Stage II (mild) 04/20/20 22 Essential (primary) hypertension 04/20/2022 Type 2 diabetes mellitus wit h other diabetic kidney complication 04/20/2022 Encounters Date Type Department Care Team Description 06/06/2025 Documentation Only [facility] [address] [place] [address] Dana Price 06/06/2025 Documentation Only [facility] [address] [place] [id number] aDna Price 06/04/2025 Telephone [facility] [address] [place] [address] Gill Mejia MA 05/12/2025 Telephone [facility] [address] [place] [address] Danni Torres MD from Last 3 Months Immunizations Immunization Administration Dates Next Due Influenza, Unspecified 06/25/2008 Moderna SARS-COV-2 11/26/2020,10/29/2020 Tdap 11/22/2021 Family History Medical History Relation Comments Diabetes Brother Hypertension Brother Dementia Father Diabetes Father Heart disease Father Hypertension Father Diabetes Mother Heart disease Mother Hypertension Mother Cancer Sister Diabetes Sister Hypertension Sister Relation Status Comments Brother Father (Age 91) Old Age Mother (Age 88) PNX Sister Social History Tobacco Use Types Packs/Day Years Used Date Smoking Tobacco: Every Day Cigarettes 0.5 30 Smokeless Tobacco: Never Tobacco Cessation:Ready to Q uit: Not Asked; Counseling Given: Not Answered Alcohol Use Standard Drinks/Week Comments Yes 0 (1 standard drink = 0.6 oz pur e alcohol) occasionally Sex and Gender Information Value Date Recorded Sex Assigned at Not on file Legal Sex Male 10:31 AM EDT Gender Identity Not on file Sexual Orientation Not on file Last Filed Vital Signs Vital Sign Reading Time Taken Comments Blood Pressure 114/72 11/28/2023 10:41 AM TEMPERER Pulse 101 11/28/2023 10:41 AM TEMPERER Temperature - - Respiratory Rate - - Oxygen Saturation 99% 11/28/2023 10: 41 AM TEMPERER Inhaled Oxygen Concentration - - Weight 91.1 kg (200 lb 12.8 oz) 024 10:41 AM TEMPERER Height 180.3 cm (5' 11 ) 11/28/2023 10: 41 AM TEMPERER Body Mass Index 28.01 11/28/2023 10:41 AM TEMPERER Plan of Treatment Upcoming Encounters Date Type Department Care Team (Late st Contact Info) Description 07/22/2025 10:00 AM CDT Office Visit [facility] [address] [place] [address] Sammi Serrano NP [address] [place] [address] Health Maintenance Due Date Last Done Comments Pneumococcal Vaccine: 50+ Ye ars (1 of 2 - PCV) 1969 Colorectal Cancer Screening: Annual FOBT 1999 Colorectal Cancer Screening: Sigmoidoscopy 1999 Diabetes: Hemoglobin A1C 12/30/2021 07/01/2017 Diabetes: Ophthalmology Exam 12/30/2021 Diabetes: Pedal Pulse Checked 12/30/2021 Diabetes: Sensory Foot Exam 12/30/2021 Diabetes: Visual Foot Exam 12/30/2021 Influenza Vaccine (#1) 2025 06/25/2008 Colorectal Cancer Screening: Colonoscopy 09/11/2034 09/11/2024 Hepatitis B Vaccine Aged Out No longe r eligible based on patient's age to complete this topic Procedures Procedure Name Priority Date/Time Associated Diagnosis Comments CBC (INCLUDES DIFF/PLT) (EXTERNAL LAB ENTRY) Routine 06/02/2025 2:30 PM CDT COMPREHENSIVE METABOLIC PANEL (CMP) (EXTERNAL LAB ENTRY) Routine 06/02/2025 2:30 PM CDT from Last 3 Months Results * Comprehensive Metabolic Panel (CMP) (06/02/2025 2:30 PM CDT) Glucose 90 mg/dL BUN 15 mg/dL Creatinine 1.07 mg/dL Sodium 136 mEq/L Potassium 5.10 mEq/L Chloride 100 Carbon Dioxide 28 mmol/L Calcium 9.9 mg/dL Albumin (Blood) 4.1 g/dL AST (SGOT) 30 U/L ALT (SGPT) 15 U/L Alkaline Phosphatase 105 U/L Total Bilirubin 1.00 MG/DL eGFR Non-Afr Senegalese 73 Total Protein, Serum 6.5 Globulin, Total 2.4 g/dL A/G Ratio 1.7 Blood 06/02/2025 2:30 PM CDT Erendira San [facility] LAB BLOOD ORDERABLES Final Re sult * CBC (Includes Diff/Plt) (External Lab) (06/02/2025 2:30 PM CDT) WBC 6.15 K/uL Red Blood Cell Count 4.60 Hemoglobin 15.2 g/dL Hematocrit 47.1 % MCV 102.4 MCH 33.0 MCHC 32.3 RDW 16.0 Platelet Count 185 MPV 10.8 Absolute Neutrophils 4.47 Absolute Lymphocytes 0.95 Absolute Monocytes 0.52 Absolute Eosinophils 0.14 Absolute Basophils 0.06 Neutrophils 72.6 K/uL Lymphocytes 15.4 Monocytes 8.5 Eosinophils 2.3 Basophils 1.0 Blood 06/02/2025 2:30 PM CDT Erendira RODRIGUEZ LAB BLOOD ORDERABLES Final Re sult from Last 3 Months Insurance Medicaid [place] ([id number]) UHC Medicare Care Teams Gyn Physician Relationship Specialty Start Date End Date Erendira San FNP [address] [place] [phone] PCP - General Family Medicine 05/17/23
--- OUTSIDE RECORDS SUMMARY | 2025-07-10 17:15 | XMS_ITS | Clinical Summary ---
Author Organization 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 3 9 Active diclofenac sodium (VOLTAREN) 1 % gel apply 4 graMs TWICE DAILY NEEDED FOR bilat knees 0 Active ipratropium-albu teroL (Combivent Respimat) 20-100 mcg/actuation Mist Take 1 Puff by inhalation 4 times daily as needed. 5 9 Active rosuvastatin (CRESTOR) 40 mg tablet Take 40 mg by mouth. 0 Active ipratropium-albu teroL (DUONEB) 0.5 mg-3 mg(2.5 mg base)/3 mL Solution for Nebulization Inhale 3 mL 4 times a day by nebulization route. 5 9 Active apixaban (Eliquis) 5 mg tablet Take 5 mg by mouth 2 times daily. 0 Active amLODIPine (NORVASC) 2.5 mg tablet Take 2.5 mg by mouth daily. 5 9 Active clopidogrel bisulfate (CLOPIDOGREL ORAL) Take 75 mg by mouth daily at 2:00 A.M.. Active Farxiga 10 mg Tablet Take 10 mg by mouth daily. 2 Active traMADoL (ULTRAM) 50 mg tablet Take 50 mg by mouth every 6 hours as needed for Pain . 8 Active gabapentin (NEURONTIN) 300 mg capsule Take 300 mg by mouth 3 times daily. 8 Active atorvastatin (LIPITOR) 80 mg tablet Take 1 Tablet (80 mg) by mouth daily at bedtime. 30 Tablet 1 7 Active ezetimibe (ZETIA) 10 mg tablet Take 10 mg by mouth daily. 8 Active albuterol sulfate 90 mcg/Actuation inhaler Take 2 Puffs by inhalation every 6 hours as needed for Shortness of Breath or Wheezing. 8.5 Gram 1 7 Active metoprolol tartrate (LOPRESSOR) 25 mg tablet Take by mouth 2 times daily. Active sulfaSALAzine (AZULFIDINE) 500 mg tablet TAKE 1 TABLET BY MOUTH TWICE A DAY; GIVE WITH food 4 Active predniSONE (DELTASONE) 20 mg tablet Take 1 Tablet by mouth daily. 4 Active celecoxib (CeleBREX) 200 mg capsule TAKE 1 CAPSULE BY MOUTH TWICE DAILY NEEDED FOR PAIN, SEVERE 4 Active cholecalciferol, Vitamin D3, 125 mcg (5,000 unit) Capsule Take 1 Capsule by mouth daily. Active Entresto 24-26 mg Tablet Take 1 Tablet by mouth 2 times daily. Active Cosentyx 150 mg/mL Syringe INJECT two syringes (300mg) UNDER THE SKIN EVERY FOUR WEEKS FOR ankylosing spondylitis 4 Active simethicone 125 mg Tablet, Chewable Dispense (3) 125 mg Simethicone chewable tablets with prep as directed. 3 Tablet 4 Active Active Problems Problem Noted Date Diagnosed Date Laceration of eyebrow and forehead 06/02/2023 Head injury without skull fracture 06/02/2023 JLUIS (acute kidney injury) 04/10/2020 Acute cystitis with hematuria 04/10/2020 Hypotension due to drugs 04/10/2020 Carotid artery disease 12/03/2019 Left renal mass 08/01/2017 Former smoker 08/01/2017 Status post femoral-distal bypass surgery, right 06/30/2017 Overview (01/21/2021): 6 mm heparin bonded ptfe ASHD (arteriosclerotic heart disease) 06/21/2017 Diet-controlled type 2 diabetes mellitus 017 Peripheral vascular disease with claudication Overview (01/21/2021): Last Assessment & Plan: Mary has significant disability related to his right lower extremity it appears to be related to his the injury and not significant peripheral vascular disease. He has relatively few symptoms of peripheral arterial insufficiency at this time. He will return to clinic in 6 months with ABIs and a right lower extremity arterial duplex. Environmental tobacco smoke exposure 03/29/2016 Essential hypertension, benign 04/28/2009 Other and unspecified hyperlipidemia 04/28/2009 Paroxysmal atrial fibrillation 04/28/2009 Paroxysmal supraventricular tachycardia 02/03/20 09 Hypovolemic shock Resolved Problems Problem Noted Date Diagnosed Date Resolved Date Diabetic ulcer of toe of rig ht foot associated with type 2 diabetes mellitus, with fat layer exposed 09/13/2017 09/29/2017 Cellulitis of second toe of right foot 08/24/2017 09/29/2017 Claw toe, acquired, right 08/10/2017 Abnormal stress test 06/26/2017 017 Acute osteomyelitis of toe of right foot 06/25/2017 09/29/2017 Cellulitis of right lower extremity 06/21/2017 07/02/2017 ACL tear 04/13/2016 12/03/2019 Overview (01/20/2021): Last Assessment & Plan: He is seeking a second opinion regarding his knee and would like a referral to Orthopaedic surgery here Tobacco use 03/29/2016 08/01/2017 Encounters Date Type Department Care Team Description 07/08/2025 External Device Data ST[facility] ABSTRACTION Provider, Abstract 04/29/2025 External Device Data [facility] ABSTRACTION Provider, Abstract from Last 3 Months Immunizations Immunization Administration Dates Next Due Influenza Seasonal Unspecified Formulation IM Family History Medical History Relation Name Comments Heart Disease Brother Diabetes Father Heart Disease Father Heart Disease Mother Relation Name Status Comments Brother Alive Father Mother Social History Tobacco Use Types Packs/Day Years Used Date Smoking Tobacco: Every Day Cigarettes Last attempted to quit: 07/02/2017 Smokeless Tobacco: Never Tobacco Cessation:Ready to Q uit: Not Asked; Counseling Given: Not Answered Alcohol Use Standard Drinks/Week Comments Yes 0 (1 standard drink = 0.6 oz pur e alcohol) occassionally Feeling Safe Answer Date Recorded Are you in a relationship wi th someone who hurts you emotionally and/or physically? 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 Gender Identity Not on file Sexual Orientation Not on file Last Filed Vital Signs Vital Sign Reading Time Taken Comments Blood Pressure 138/65 09/11/2024 2:08 PM MILITARY PAY CLERK Pulse 60 09/11/2024 2:08 PM MILITARY PAY CLERK Temperature 36.9 C (98.4 F) 06/02/2023 2:55 PM CDT Respiratory Rate 15 09/11/2024 2:08 PM MILITARY PAY CLERK Oxygen Saturation 97% 09/11/2024 2:08 PM MILITARY PAY CLERK Inhaled Oxygen Concentration - - Weight 82.6 kg (182 lb) 09/06/2024 4:39 PM MILITARY PAY CLERK Height 180.3 cm (5' 11 ) 09/06/2024 4:39 PM MILITARY PAY CLERK Body Mass Index 25.38 09/06/2024 4:39 PM MILITARY PAY CLERK Plan of Treatment Health Maintenance Due Date Last Done Comments DIABETES MICROALBUMIN ANNUAL SCREEN 1968 PNEUMOCOCCAL VACCINE 50+ YEA RS (1 of 2 - PCV) 1969 FIT-DNA Q 3 years 1995 FIT/FOBT Q 1 year 1995 Flex Sig/CT Colonography Q 5 years 1995 ZOSTER VACCINE (1 of 2) 2000 Abdominal Aortic Aneurysm (A AA) Screening 2015 DIABETES HBA1C Q 6 MONTHS 06/02/20182017, 07/01/2017, 07/01/2017 DIABETES ANNUAL RETINAL EXAM 06/23/2018 06/23/2017 DIABETES ANNUAL FOOT EXAM 07/10/2018 07/10/2017 LDL CHOLESTEROL ANNUAL 11/30/2018 11/30/2017 INFLUENZA VACCINE (#1) 2025 06/25/2008 RSV VACCINE (60+ or ) (1 - 1-dose 75+ series) 2025 DTAP/TDAP/TD VACCINES (2 - T d or Tdap) 11/22/2031 11/22/2021 COLORECTAL SCREENING 09/11/2034 09/11/2024, 09/11/20 24 Colorectal Cancer Screening 09/11/2034 Medical Devices Implanted Type Area Enrollment Management Manager Device Identifier Shelf Expiration Date Model / Serial / Lot Sealant Coseal 4ml [id number] - [id number] Implanted:Qty : 1 on 06/28/2017 by Jadon Aguillon MD Biological Right: Leg [employer] JIN 07/25/2017 [id number] / / [id number] Sealant Coseal 4ml [id number] - [id number] Implanted:Qty : 1 on 06/28/2017 by Jadon Aguillon MD Biological Right: Leg [employer] JIN 09/24/2017 [id number] / / [id number] Grft Fusn Bioline [id number] - [id number] Implanted:Qty : 1 on 06/28/2017 by Jadon Aguillon MD Graft Right: Groin [employer] AB 11/22/2019 [id number] / / [id number] Starclose Se Vasc Closure [id number] - [id number] Implanted:Qty : 1 on 06/23/2017 by Jadon Aguillon MD Hemostatic Left: Groin TINSLEY- VASC DEVICE 11/23/2018 [id number] / / [id number] Procedures Procedure Name Priority Date/Time Associated Diagnosis Comments COLONOSCOPY REPORT 09/11/2024 1: 47 PM MILITARY PAY CLERK LIPID PANEL Routine 11/30/2017 HEMOGLOBIN A1C Routine 07/01/2017 6:46 AM CDT from Last 3 Months or Most Recently Relevant to Health Maintenance Results * COLONOSCOPY REPORT (09/11/2024 1:47 PM MILITARY PAY CLERK) Narrative Procedure Note Olman España DO - 09/11/2024 1:47 PM CST [facility] GI Patient Name: Eloy Dyer Procedure Date: 09/11/2024 Date of : 1950 Admit Type: Outpatient Age: 74 Attending MD: Olman España DO, Procedure: Colonoscopy Providers: Olman España DO Referring MD: MICHAEL Anthony Medicines: Sedation Administered by the Nurse Complications: No immediate complications. Procedure: Pre-Anesthesia Assessment: - Prior to the procedure, a History and Physical was performed, and patient medications and allergies were reviewed. The patient's tolerance of previous anesthesia was also reviewed. The risks and benefits of the procedure and the sedation options and risks were discussed with the patient. All questions were answered, and informed consent was obtained. Prior Anticoagulants: The patient has taken no anticoagulant or antiplatelet agents. ASA Grade Assessment: III - A patient with severe systemic disease. After reviewing the risks and benefits, the patient was deemed in satisfactory condition to undergo the procedure. After I obtained informed consent, the scope was passed under direct vision. Throughout the procedure, the patient's blood pressure, pulse, and oxygen saturations were monitored continuously. The Colonoscope was introduced through the anus and advanced to the rectum. The patient tolerated the procedure well. The quality of the bowel preparation was inadequate. Estimated Blood Loss: Estimated blood loss: none. Findings: A large amount of extensive amounts of semi-solid solid stool was found in the recto-sigmoid colon, precluding visualization. Not adequate to proceed Recommendation: - Repeat colonoscopy at the next available appointment because the examination was incomplete and because the bowel preparation was poor. - Continue present medications. - Patient has a contact number available for emergencies. The signs and symptoms of potential delayed complications were discussed with the patient. Return to normal activities tomorrow. Written discharge instructions were provided to the patient. - Return to primary care physician as previously scheduled. - The findings and recommendations were discussed with the patient's family. Olman sEpaña DO 09/11/2024 1:47:12 PM This report has been signed electronically. Number of Addenda: 0 Note Initiated On: 09/11/2024 1:30 PM Scope Withdrawal Time Scope In: 1:44:06 PM Scope Out: 1:44:38 PM [address] [place], [place] Olman España DO GI PROCEDURE ORDERABLES Final Result * LIPID PANEL (11/30/2017) ABSTRACTED CHOLESTEROL 212 EXTERNAL LAB ABSTRACTED TRIGLYCERIDE 304 EXTERNAL LAB ABSTRACTED HDL 71 EXTERNAL LAB ABSTRACTED LDL CALCULATED 100 EXTERNAL LAB CHOLESTEROL EXTERNAL LAB TRIGLYCERIDE EXTERNAL LAB HDL EXTERNAL LAB LDL CALCULATED EXTERNAL LAB Blood 11/30/2017 Narrative EXTERNAL LAB - 11/30/2017 This order was created through External Result Entry Natividad Martinez PERSONAL CARE ASSISTANT CHEMISTRY ORDERABLES Final Re sult EXTERNAL LAB * (ABNORMAL) HEMOGLOBIN A1C (07/01/2017 6:46 AM CDT) Pathologist [facility] HEMOGLOBIN A1C 6.3(H) 4.0 - 6.0 % 07/03/2017 11:27 AM CDT [facility] [employer] [facility] EST. AVG GLUCOSE, A1C 134 mg/dL 07/03/2017 11:27 AM CDT [facility] [employer] [facility] Blood Venipuncture / Unknown 07/01/2017 6:46 AM CDT 07/01/2017 6:57 AM CDT Narrative [facility] [employer] [facility] - 07/03/2017 11:27 AM CDT Test performed on CubiclII instrumentation using HPLC methodology Mirta Tucker MD CHEMISTRY ORDERABL ES Final Result Performing Organization Address City/[facility]/ZIP Co de Phone Number [facility] CLIA# [id number] [address] [place] [address] [facility] [employer] [facility] CLIA # [id number] [address] [address] from Last 3 Months or Most Recently Relevant to Health Maintenance Insurance MEDICAID [place] Member Subscriber Plan / Payer (Ef fective 2021-Present) Name:Eloy Dyer Relation to Subscriber:Self Name:Eloy Dyer Payer ID:Not on file Group ID:Not on file Type:Medicaid Address: [address] MEDICARE HMO Advance Directives For more information, please contact: [phone] * Full Code (Latest Code Status on File) Date Activated Date Inactivated Comments 09/11/2024 12:08 PM 09/11/2024 4:28 PM
--- OUTSIDE RECORDS SUMMARY | 2025-07-10 17:15 | XMS_ITS | Clinical Summary ---
Author Organization [facility] Address [address] [place] [address] Care Team Providers Care Highway Traffic Control Technician Name Role Phone Natividad Martinez STARS SPECIALIST Primary Care Provider [phone] Allergies Active Allergy Reactions Criticality Noted Date Comments Ciprofloxacin Rash Low 02/17/2018 Lisinopril Cough Low 11/30/2020 Medications clopidogrel (PLAVIX) 75 mg Oral Tab Take 75 mg by mouth daily. Active 0mega-3 fatty acids-vitamin E (FISH OIL) 1,000 mg Oral Cap Take 1,000 mg by mouth daily. Active atorvastatin (LIPITOR) 80 mg tablet Take 1 Tablet (80 mg) by mouth daily at bedtime. 30 Tablet 1 7 Active Additional Information Patient taking differently:80 mg OralDAILY, Reported on 02/17/2018 albuterol HFA 90 mcg inhaler Take 2 Puffs by inhalation every 6 hours as needed for Shortness of Breath or Wheezing. 8.5 Gram 1 7 Active gabapentin (NEURONTIN) 300 mg capsule Take 300 mg by mouth 3 times daily. Active ezetimibe (ZETIA) 10 mg tablet Take 10 mg by mouth daily. Active traMADol (ULTRAM) 50 mg tablet Take 50 mg by mouth every 6 hours as needed for Pain . Active allopurinoL (ZYLOPRIM) 100 mg tablet Take 100 mg by mouth daily. 3 9 Active COMBIVENT RESPIMAT 20-100 mcg/actuation Mist Take 1 Puff by inhalation 4 times daily as needed. 5 9 Active ipratropium-albu terol (DUONEB) 0.5 mg-3 mg(2.5 mg base)/3 mL Solution for Nebulization Inhale 3 mL 4 times a day by nebulization route. 5 9 Active traZODone (DESYREL) 50 mg tablet Take 50 mg by mouth nightly as needed. 1 9 Active amLODIPine (NORVASC) 2.5 mg tablet Take 2.5 mg by mouth daily. 5 9 Active ELIQUIS 5 mg tablet Take 5 mg by mouth 2 times daily. 0 Active diclofenac sodium (VOLTAREN) 1 % gel apply 4 graMs TWICE DAILY NEEDED FOR bilat knees 0 Active rosuvastatin (CRESTOR) 40 mg tablet Take 40 mg by mouth. 0 Active COLCRYS 0.6 mg tablet Take 0.6 mg by mouth 2 times daily. 0 Active Active Problems Problem Noted Date Diagnosed Date Acute cystitis with hematuria 04/10/2020 JLUIS (acute kidney injury) 04/10/2020 Hypotension due to drugs 04/10/2020 Carotid artery disease 12/03/2019 Left renal mass 08/01/2017 Former smoker 08/01/2017 Status post femoral-distal bypass surgery, right 06/30/2017 Overview (06/30/2017): 6 mm heparin bonded ptfe ASHD (arteriosclerotic heart disease) 06/21/2017 Diet-controlled type 2 diabetes mellitus 017 Peripheral vascular disease with claudication Overview (05/31/2019): Last Assessment & Plan: Mary has significant [...] 06/21/2017 07/02/2017 ACL tear 04/13/2016 12/03/2019 Overview (05/31/2019): Last Assessment & Plan: He is seeking a second opinion regarding his knee and would like a referral to Orthopaedic surgery here Tobacco use 03/29/2016 08/01/2017 Immunizations Immunization Administration Dates Next Due Influenza Seasonal Unspecified Formulation IM Family History Medical History Relation Name Comments Heart Disease Brother Diabetes Father Heart Disease Father Heart Disease Mother Relation Name Status Comments Brother Alive Father Mother Social History Tobacco Use Types Packs/Day Years Used Date Smoking Tobacco: Every Day Cigarettes 0.5 47 Started: 07/02/1970; Last attempted to quit: 07/02/2017 Smokeless Tobacco: Never Alcohol Use Standard Drinks/Week Comments Yes 0 (1 standard drink = 0.6 oz pur e alcohol) on occasion Sex and Gender Information Value Date Recorded Sex Assigned at Not on file Legal Sex Male 6:53 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 Gender Identity Not on file Sexual Orientation Not on file Last Filed Vital Signs Vital Sign Reading Time Taken Comments Blood Pressure 128/74 11/30/2020 1:19 PM PROTOTYPE MACHINIST Pulse 106 11/30/2020 1:19 PM PROTOTYPE MACHINIST Temperature 36.2 C (97.2 F) 04/13/2020 7:35 AM CDT Respiratory Rate 20 04/13/2020 7:35 AM CDT Oxygen Saturation 98% 11/30/2020 1:19 PM PROTOTYPE MACHINIST Inhaled Oxygen Concentration - - Weight 106.9 kg (235 lb 9.6 oz) 11/30/2020 1:19 PM PROTOTYPE MACHINIST Height 180.3 cm (5' 11 ) 11/30/2020 1:19 PM PROTOTYPE MACHINIST Body Mass Index 32.86 11/30/2020 1:19 PM PROTOTYPE MACHINIST Plan of Treatment Health Maintenance Due Date Last Done Comments DIABETES MICROALBUMIN ANNUAL SCREEN 1968 DTAP/TDAP/TD VACCINES (1 - Tdap) 1969 PNEUMOCOCCAL VACCINE 50+ YEA RS (1 of 2 - PCV) 1969 COLORECTAL SCREENING 1995 Colorectal Cancer Screening 1995 FIT-DNA Q 3 years 1995 FIT/FOBT Q 1 year 1995 Flex Sig/CT Colonography Q 5 years 1995 ZOSTER VACCINE (1 of 2) 2000 DIABETES HBA1C Q 6 MONTHS 06/02/2018 11/30/2017, 03/2017 DIABETES ANNUAL RETINAL EXAM 06/23/2018 06/23/2017 DIABETES ANNUAL FOOT EXAM 07/10/2018 07/10/2017 LDL CHOLESTEROL ANNUAL 11/30/2018 11/30/2017, 2007 INFLUENZA VACCINE (#1) 2025 06/25/2008 RSV VACCINE (60+ or ) (1 - 1-dose 75+ series) 2025 Medical Devices Implanted Type Area Registered Medical Assistant Device Identifier Shelf Expiration Date Model / Serial / Lot Sealant Coseal 4ml [id number] - [id number] Implanted:Qty: 1 on 06/28/2017 by Jadon Aguillon MD at [facility] Biological Right: Leg [employer]IN 07/25/2017 [id number] / / [id number] Sealant Coseal 4ml [id number] - [id number] Implanted:Qty: 1 on 06/28/2017 by Jadon Aguillon MD at [facility] Biological Right: Leg [employer] JIN 09/24/2017 [id number] / / [id number] [facility] Fusn Bioline [id number] - [id number] Implanted:Qty: 1 on 06/28/2017 by Jadon Aguillon MD at [facility] Graft Right: Groin [employer] 11/22/2019 [id number] / / [id number] Starclose Se Vasc Closure [id number] - [id number] Implanted:Qty: 1 on 06/23/2017 by Jadon Aguillon MD at [facility] Hemostatic Left: Groin TINSLEY- VASC DEVICE 11/23/2018 [id number] / / [id number] Procedures Procedure Name Priority Date/Time Associated Diagnosis Comments LIPID PANEL Routine 11/30/2017 HEMOGLOBIN A1C Routine 07/01/2017 6:46 AM CDT from Last 3 Months or Most Recently Relevant to Health Maintenance Results * LIPID PANEL (11/30/2017) ABSTRACTED CHOLESTEROL 212 EXTERNAL LAB ABSTRACTED TRIGLYCERIDE 304 EXTERNAL LAB ABSTRACTED HDL 71 EXTERNAL LAB ABSTRACTED LDL CALCULATED 100 EXTERNAL LAB CHOLESTEROL <=200 mg/dL EXTERNAL LAB TRIGLYCERIDE <=150 mg/dL EXTERNAL LAB HDL 40 - 59 mg/dL EXTERNAL LAB LDL CALCULATED <=100 mg/dL EXTERNAL LAB Blood 11/30/2017 us Natividad Martinez STARS SPECIALIST CHEMISTRY ORDERABLES Final Re sult Performing Organization Address City/[facility]/ZIP Co de Phone Number EXTERNAL LAB * (ABNORMAL) HEMOGLOBIN A1C (07/01/2017 6:46 AM CDT) HEMOGLOBIN A1C 6.3(H) 4.0 - 6.0 % 07/03/2017 11:27 AM CDT [facility] EST. AVG GLUCOSE, A1C 134 mg/dL 07/03/2017 11:27 AM CDT [facility] Blood Venipuncture / Unknown 07/01/2017 6:46 AM CDT 07/01/2017 6:57 AM CDT Narrative [facility] - 07/03/2017 11:27 AM CDT Test performed on [employer] instrumentation using HPLC methodology us Mirta Tucker MD CHEMISTRY ORDERABL ES Final Result Performing Organization Address City/[facility]/ZIP Co de Phone Number [facility] CLIA# [id number] [address] [place] [address] from Last 3 Months or Most Recently Relevant to Health Maintenance Insurance MEDICAID [place] [employer] Advance Directives For more information, please contact: [phone] * Full Code (Latest Code Status on File) Date Activated Date Inactivated Comments 04/10/2020 8:12 PM 04/13/2020 11:10 AM * Full Code Date Activated Date Inactivated Comments 09/13/2017 8:16 PM 09/14/2017 12:10 AM * Full Code Date Activated Date Inactivated Comments 06/28/2017 7:25 PM 07/02/2017 3:12 PM * Full Code Date Activated Date Inactivated Comments 06/23/2017 9:48 AM 06/28/2017 7:25 PM * Full Code Date Activated Date Inactivated Comments 06/21/2017 5:47 AM 06/23/2017 9:[address] Traffic Control Technician Relationship Specialty Start Date End Date Natividad Martinez FNP [address] [place] [address] PCP - General NURSE PRACTITIONER 02/17/18
--- OUTSIDE RECORDS SUMMARY | 2025-07-10 17:15 | XMS_ITS | Encounter Summary ---
Author Organization [facility] Address [address] [place] [address] Care Team Providers Care Rolfer Name Role Phone MartinezNatividad cheng Robert [facility] Primary Care Provider [phone] Encounter Details Date Type Department Care Team (Late st Contact Info) Description 11/23/2017 Ancillary Orders [facility] CT Scan [address] [place] [address] [phone] [facility], External Provider [address] [place] [address] Pain Social History Tobacco Use Types Packs/Day Years Used Date Smoking Tobacco: Former Cigarettes Q uit: 07/02/2017 Smokeless Tobacco: Never Alcohol Use Standard Drinks/Week Comments Yes 0 (1 standard drink = 0.6 oz pur e alcohol) on occasion Sex and Gender Information Value Date Recorded Sex Assigned at Not on file Legal Sex Male 6:53 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 External Provider [facility] CT ORDERABLES Final Resu lt documented in this encounter Visit Diagnoses Diagnosis Pain Generalized pain Pain Generalized pain documented in this encounter Care Teams Rolfer Relationship Specialty Start Date End Date Natividad Martinez FNP [address] [place] [address] PCP - General NURSE PRACTITIONER 02/17/18 documented as of this encounter
--- OUTSIDE RECORDS SUMMARY | 2025-07-10 17:15 | XMS_ITS | Encounter Summary ---
Author Organization [facility] Address [address] [place] [address] Care Team Providers Care Core Mounter Name Role Phone Unavailable Primary Care Provider Unavailabl e Encounter Details Date Type Department Care Team (Late st Contact Info) Description 07/08/2025 External Device Data [facility] ABSTRACTION Provider, Abstract NO ADDRESS ON FILE Social History Tobacco Use Types Packs/Day Years [...] on file Legal Sex Male 2:21 AM PHOTO MACHINE OPERATOR Gender Identity Not on file Sexual Orientation Not on file documented as of this encounter Plan of Treatment Not on file documented as of this encounter Visit Diagnoses Not on filedocumented in this encounter
--- OUTSIDE RECORDS SUMMARY | 2025-07-10 17:15 | XMS_ITS | Encounter Summary ---
Author Organization [facility] Address [address] [place] [address] [place] [address] Care Team Providers Care Client Service Consultant Name Role Phone Natividad MartinezP Primary Care Provider [phone] Encounter Details Date Type Department Care Team (Late st Contact Info) Description 05/02/2016 Orders Only [facility] Radiology [address] [place], [place] [address] System, Provider Not In, [address] [place] [address] Social History Tobacco Use Types Packs/Day Years Used Date Smoking Tobacco: Every Day Cigarettes 0.5 60 Started: 04/13/1966 Alcohol Use Standard Drinks/Week Comments Yes 0 (1 standard drink = 0.6 oz pur e alcohol) socially Sex and Gender Information Value Date Recorded Sex Assigned at Not on file Legal Sex Male 8:30 PM CDT Gender Identity Not on file Sexual Orientation Not on file documented as of this encounter Plan of Treatment Not on file documented as of this encounter Procedures Procedure Name Priority Date/Time Associated Diagnosis Comments OUTSIDE IMAGES 05/02/2016 2:32 PM CDT documented in this encounter Results * Outside Images (05/02/2016 2:32 PM CDT) Anatomical Region Laterality Modality N/A Radiographic Concepción ging 05/02/2016 2:32 PM CDT Narrative 05/02/2016 2:32 PM CDT Historic images from [facility] exist and can be viewed by using the hyperlink to access Zap[employer]ch pacs: KNEE R Procedure Note System, Provider Not In, - 05/24/2019 Historic images from [facility] exist and can be viewed byusing the hyperlink to access Zap[employer]ch pacs: KNEE R us Provider Not In System MD [facility] DER[facility] Final Result documented in this encounter Visit Diagnoses Not on filedocumented in this encounter Care Teams Client Service Consultant Relationship Specialty Start Date End Date Natividad Martinez FNP PCP - General Nurse Practitioner 04/13/16 documented as of this encounter
--- OUTSIDE RECORDS SUMMARY | 2025-07-10 17:15 | XMS_ITS | Encounter Summary ---
Author Organization [facility] Address [address] [place] [address] Care Team Providers Care Knitting Machine Fixer Head Name Role Phone Natividad Martinez INDUCTION HEATING EQUIPMENT SETTER Primary Care Provider [phone] Encounter Details Date Type Department Care Team (Late st Contact Info) Description 01/02/2009 Ancillary Orders [facility] Cardiology- [place] [address] [place] [address] Elda Lamar MD [address] [place] [address] Social History Tobacco Use Types Packs/Day Years Used Date Smoking Tobacco: Never Assessed Sex and Gender Information Value Date Recorded Sex Assigned at Not on file Legal Sex Male 6:53 AM CAR 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 PT. NAME: Eloy Dyer : 1950 DATE: 01/14/2009 8:40 A CALLER: [facility] [place]. PHONE NUMBER: [phone] PHI: N MESSAGE: SPOKE TO PT RE: HEART SURGERY. HUNTER WANTS TO KNOW WHAT THAT IS ABOUT. Call Back: Y [employer] Officer: Cara Marie FOLLOW-UP: DATE/TIME: 01/14/09 1250 INITIALS: VASILE Romero ACTION: Returned call to Hunter. Informed Hunter pt. is scheduled for SVT ablation on 02/03/09. hunter verbalized understanding. cc: documented in this encounter Plan of Treatment Not on file documented as of this encounter Visit Diagnoses Not on filedocumented in this encounter Care Teams Knitting Machine Fixer Head Relationship Specialty Start Date End Date Natividad Martinez FNP [address] [place] [address] PCP - General NURSE PRACTITIONER 02/17/18 documented as of this encounter
--- OUTSIDE RECORDS SUMMARY | 2025-07-10 17:15 | XMS_ITS | Encounter Summary ---
Author Organization [facility] Address [address] [place] [address] Care Team Providers Care Drywall Foreman Name Role Phone Natividad Martinez Primary Care Provider [phone] Encounter Details Date Type Department Care Team (Late st Contact Info) Description 10/01/2007 Outpatient Historical [facility] [address] [place] [address] Lynsey Dey FNP [address] [place] [phone] Social History Tobacco Use Types Packs/Day Years Used Date Smoking Tobacco: Never Assessed Sex and Gender Information Value Date Recorded Sex Assigned at Not on file Legal Sex Male 6:53 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
--- OUTSIDE RECORDS SUMMARY | 2025-07-10 17:15 | XMS_ITS | Encounter Summary ---
Author Organization [facility] Address [address] [place] [address] Care Team Providers Care Game Programmer Name Role Phone MartinezNatividad cheng Robert RODRIGUEZ Primary Care Provider Reason for Referral * Outpatient Services (Routine) - Closed Specialty Diagnoses / Procedures Referred By Jose t Referred To Contact Radiology Diagnoses Renal mass Procedures CT RENAL CRYO ABLATION PERCUTANEOUS Brendan Corrales MD Phone: tel: fax: [facility] CT Scan [address] [place] [address] Phone: tel: fax: Referral ID Status Reason Start Date Expiration Date Visits Re quested Visits Authorized [id number] Closed 11/27/2017 12/28/2018 1 1 DIGGER TRUCK DRIVER Encounter Details Date Type Department Care Team (Late st Contact Info) Description 11/27/2017 Ancillary Orders [facility] CT Scan [address] [place] [address] Brendan Corrales MD [address] [id number] Renal mass Social History Tobacco Use Types Packs/Day Years Used Date Smoking Tobacco: Former Cigarettes Q uit: 07/02/2017 Smokeless Tobacco: Never Alcohol Use Standard Drinks/Week Comments Yes 0 (1 standard drink = 0.6 oz pur e alcohol) on occasion Sex and Gender Information Value Date Recorded Sex Assigned at Not on file Legal Sex Male 6:53 AM HOLE DIGGER TRUCK 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 Date: 12/08/2017 12:48 PM Clinical History: Left lower pole renal cell carcinoma. Medical Librarian: Dr. Wallace Moderate (conscious) sedation for this procedure was performed with continuous physician supervision. Medical history, physical exam, drug dosages, routes of drug administration, monitoring data, and precise times of service are documented in the medical record on the [facility]-approved form, 'Sedative/Analgesic Administration for Diagnostic and Therapeutic Procedures'. Please see separate nursing documentation for duration and drug dosages. PROCEDURE AND FINDINGS: 1. Preoperative localization CT was performed, which demonstrated 3 cm lower pole left renal mass. 2. Cryoablation of the left renal mass with 2 ice susanna plus ablation probes. A 10 minute freeze, 5 minute thaw, and 10 minute freeze cycle were performed. The ice ball was seen to completely encase the mass. No significant hemorrhage or pneumothorax seen on post ablation imaging. Access site: Left flank. Contrast: None. Complication/s: None. Estimated Blood Loss: Minimal. Technique: Prior to the procedure, the risks of bleeding, infection, and damage to adjacent structures were explained to the patient. The patient stated an understanding of these risks and signed the consent form. The patient was placed right lateral decubitus on the CT table and 3.0 cm exophytic mass in the lower pole of the left kidney kidney was localized under CT guidance. A marker was placed on the skin overlying the mass. Thereafter, the patient was prepped and draped in the usual sterile fashion. 10 cc of 1% lidocaine were utilized to anesthetize a tract from the skin to the left renal mass. Intravenous sedation was administered in divided doses over the course of the procedure. Two Ice susanna plus cryoablation probes were positioned in the renal mass and confirmed with CT imaging. A 10 minute freeze was performed. The needles were then slightly repositioned dorsally following a five minute thaw, and a second 10 minute freeze cycle was performed. CT imaging demonstrates complete encasement of the mass with the ice ball. The needles were thawed and cautery was performed prior to needle removal. A sterile dressing was placed. ++++++++++++++++++++ IMPRESSION: Successful CT-guided cryoablation of a left renal cell carcinoma. Narrative Procedure Note Blake Wallace MD - 12/08/2017 IMPRESSION: Please see below. Date: 12/08/2017 12:48 PM Clinical History: Left lower pole renal cell carcinoma. Medical Librarian: Dr. Wallace Moderate (conscious) sedation for this procedure was performed with continuous physician supervision. Medical history, physical exam, drug dosages, routes of drug administration, monitoring data, and precise times of service are documented in the medical record on the [facility]-approved form, 'Sedative/Analgesic Administration for Diagnostic and Therapeutic Procedures'. Please see separate nursing documentation for duration and drug dosages. PROCEDURE AND FINDINGS: 1. Preoperative localization CT was performed, which demonstrated 3 cm lower pole left renal mass. 2. Cryoablation of the left renal mass with 2 ice susanna plus ablation probes. A 10 minute freeze, 5 minute thaw, and 10 minute freeze cycle were performed. The ice ball was seen to completely encase the mass. No significant hemorrhage or pneumothorax seen on post ablation imaging. Access site: Left flank. Contrast: None. Complication/s: None. Estimated Blood Loss: Minimal. Technique: Prior to the procedure, the risks of bleeding, infection, and damage to adjacent structures were explained to the patient. The patient stated an understanding of these risks and signed the consent form. The patient was placed right lateral decubitus on the CT table and 3.0 cm exophytic mass in the lower pole of the left kidney kidney was localized under CT guidance. A marker was placed on the skin overlying the mass. Thereafter, the patient was prepped and draped in the usual sterile fashion. 10 cc of 1% lidocaine were utilized to anesthetize a tract from the skin to the left renal mass. Intravenous sedation was administered in divided doses over the course of the procedure. Two Ice susanna plus cryoablation probes were positioned in the renal mass and confirmed with CT imaging. A 10 minute freeze was performed. The needles were then slightly repositioned dorsally following a five minute thaw, and a second 10 minute freeze cycle was performed. CT imaging demonstrates complete encasement of the mass with the ice ball. The needles were thawed and cautery was performed prior to needle removal. A sterile dressing was placed. ++++++++++++++++++++ IMPRESSION: Successful CT-guided cryoablation of a left renal cell carcinoma. us Brendan Corrales MD CT ORDERABLES Final R esult documented in this encounter Visit Diagnoses Diagnosis Renal mass Unspecified disorder of kidney and ureter Renal mass Unspecified disorder of kidney and ureter documented in this encounter Care Teams Game Programmer Relationship Specialty Start Date End Date Natividad Martinez FNP [address] [place] [address] PCP - General NURSE PRACTITIONER 02/17/18 documented as of this encounter
--- OUTSIDE RECORDS SUMMARY | 2025-07-10 17:15 | XMS_ITS | Clinical Summary ---
Author Organization [facility] Address [address] [place] [address] Care Team Providers Care Machinist First Class Name Role Phone Natividad Martinez Primary Care Provider [phone] Allergies No known active allergies Medications No known medications Active Problems Problem Noted Date Diagnosed Date Peripheral vascular disease with claudication Assessment & Plan (04/13/2016 2:53 PM CDT): Mary has significant disability related to his right lower extremity it appears to be related to his the injury and not significant peripheral vascular disease. He has relatively few symptoms of peripheral arterial insufficiency at this time. He will return to clinic in 6 months with ABIs and a right lower extremity arterial duplex. ACL tear 04/13/2016 Assessment & Plan (04/13/2016 2:56 PM CDT): He is seeking a second opinion regarding his knee and would like a referral to Orthopaedic surgery here Social History Tobacco Use Types Packs/Day Years [...] Sign Reading Time Taken Comments Blood Pressure 130/84 04/13/2016 2:19 PM CDT Pulse - - Temperature - - Respiratory Rate 18 04/13/2016 2:19 PM CDT Oxygen Saturation - - Inhaled Oxygen Concentration - - Weight 103 kg (226 lb) 04/13/2016 2:19 PM CDT Height 180.3 cm (5' 11 ) 04/13/2016 2:19 PM CDT Body Mass Index 31.52 04/13/2016 2:19 PM CDT Plan of Treatment Health Maintenance Due Date Last Done Comments Medicare Annual Wellness 1950 Td, Tdap Vaccines Adult 1969 Colonoscopy 1995 Pneumococcal Vaccine: 50+ Ye ars (1 of 1 - PCV) 2000 Shingrix (ZOSTER RECOMBINANT ) (1 of 2) 2000 Influenza Vaccination (#1) 2025 RSV 60+ (1 - 1-dose 75+ series) 2025 HIB Vaccines Aged Out No longer eligi ble based on patient's age to complete this topic HPV Vaccines Aged Out No longer eligi ble based on patient's age to complete this topic Hepatitis A Vaccines Aged Out No long er eligible based on patient's age to complete this topic Hepatitis B Vaccines Aged Out No long er eligible based on patient's age to complete this topic IPV Vaccines Aged Out No longer eligi ble based on patient's age to complete this topic Meningococcal Vaccines Aged Out No lo nger eligible based on patient's age to complete this topic RSV Mab Nirsevimab (Beyfortu s) <20 months Aged Out No longer eligible b ased on patient's age to complete this topic Rotavirus Vaccines Aged Out No longer eligible based on patient's age to complete this topic Insurance [address] [address] S Care Teams Machinist First Class Relationship Specialty Start Date End Date Natividad Martinez FNP PCP - General Nurse Practitioner 04/13/16
--- OUTSIDE RECORDS SUMMARY | 2025-07-10 17:15 | XMS_ITS | Encounter Summary ---
[facility] Organization [facility] Address [address] [place] [address] Care Team Providers Care Interior Design Project Manager Name Role Phone Natividad Martinez SEAT JOINER Primary Care Provider [phone] Encounter Details Date Type Department Care Team (Late st Contact Info) Description 10/17/2007 Outpatient Historical HIS IN BED Ed, Physician NO ADDRESS ON FILE John Paul Pérez DO NO ADDRESS ON FILE Sidney Sousa MD [address] [facility] [address] [place] [address] Hy Kid NOS w Cr Kid I-Iv; Coronary Atherosclerosis of [place] Coronary Artery; DM w/o Complication Type II (CMS/HCC); Unspecified Arthropathy, Site Unspecified; Gout, Unspecified; Personal History of Tobacco Use, Presenting Hazards to Health; Chronic Kidney Disease, Unspecified Social History Tobacco Use Types Packs/Day Years Used Date Smoking Tobacco: Never Assessed Sex and Gender Information Value Date Recorded Sex Assigned at Not on file Legal Sex Male 6:53 AM WELLNESS INSTRUCTOR Gender Identity Not on file Sexual Orientation Not on file documented as of this encounter Plan of Treatment Not on file documented as of this encounter Procedures Procedure Name Priority Date/Time Associated Diagnosis Comments CBC WITH DIFFERENTIAL Routine 10/19/2007 6:25 AM WELLNESS INSTRUCTOR PTT Routine 10/19/2007 6:25 AM WELLNESS INSTRUCTOR PROTIME-INR Routine 10/19/2007 6:25 AM WELLNESS INSTRUCTOR BASIC METABOLIC PANEL Routine 10/19/2007 6:25 AM WELLNESS INSTRUCTOR POC GLUCOSE Routine 10/19/2007 5:29 AM WELLNESS INSTRUCTOR POC GLUCOSE Routine 10/18/2007 9:36 PM WELLNESS INSTRUCTOR POC GLUCOSE Routine 10/18/2007 5:35 PM WELLNESS INSTRUCTOR CARDIAC ENZYMES Routine 10/18/2007 6:45 AM WELLNESS INSTRUCTOR LIPID PANEL Routine 10/18/2007 6:45 AM WELLNESS INSTRUCTOR POC GLUCOSE Routine 10/18/2007 5:31 AM WELLNESS INSTRUCTOR PTT Routine 10/18/2007 3:50 AM WELLNESS INSTRUCTOR CBC WITHOUT DIFFERENTIAL Routine 10/18/2007 3:50 AM WELLNESS INSTRUCTOR CARDIAC ENZYMES Routine 10/17/2007 11:58 PM WELLNESS INSTRUCTOR PTT Routine 10/17/2007 11:58 PM WELLNESS INSTRUCTOR CARDIAC ENZYMES Routine 10/17/2007 6:36 PM WELLNESS INSTRUCTOR documented in this encounter Results * (ABNORMAL) BASIC METABOLIC PANEL (10/19/2007 6:25 AM WELLNESS INSTRUCTOR) GLUCOSE 106 70 - 110 mg/dL INTERFACE SYSTEM BUN 26(H) 9 - 20 mg/dL INTERFACE SYSTEM CREATININE 1.4 0.7 - 1.5 mg/dL INTERFACE SYSTEM SODIUM 140 136 - 145 mEq/L INTERFACE SYSTEM POTASSIUM 4.6 3.5 - 5.0 mEq/L INTERFACE SYSTEM CHLORIDE 104 95 - 110 mEq/L INTERFACE SYSTEM CO2 26 22 - 32 mmol/l INTERFACE SYSTEM CALCIUM 9.6 8.4 - 10.5 mg/dL INTERFACE SYSTEM ANION GAP 15 9 - 20 mEq/L INTERFACE SYSTEM OSMOLALITY, CALCULATED 294 275 - 295 mOsm/Kg INTERFACE SYSTEM 10/19/2007 6:25 AM WELLNESS INSTRUCTOR Sidney Sousa MD CHEMISTRY ORDERABLES Edited INTERFACE SYSTEM Refer to clinic/hospital department * (ABNORMAL) CBC WITH DIFFERENTIAL (10/19/2007 6:25 AM WELLNESS INSTRUCTOR) WBC 6.1 4.8 - 10.8 K/ul INTERFACE SYSTEM RBC 4.61 4.60 - 6.20 Mil/ul INTERFACE SYSTEM HEMOGLOBIN 13.6(L) 14.0 - 18.0 g/dL INTERFACE SYSTEM HEMATOCRIT 40.2(L) 41.0 - 53.0 % INTERFACE SYSTEM MCV 87.2 84.0 - 103.0 Fl INTERFACE SYSTEM MCH 29.5 27.0 - 34.0 pg INTERFACE SYSTEM MCHC 33.8 30.0 - 35.0 g/dL INTERFACE SYSTEM RDW 13.5 11.0 - 14.5 % INTERFACE SYSTEM PLATELETS 259 140 - 440 K/ul INTERFACE SYSTEM MPV 9.8 8.9 - 12.8 Fl INTERFACE SYSTEM NEUTROPHILS 54.0 42.2 - 75.2 % INTERFACE SYSTEM LYMPHOCYTES 33.6 24.0 - 44.0 % INTERFACE SYSTEM MONOCYTES 8.8 2.0 - 10.0 % INTERFACE SYSTEM EOSINOPHILS 2.6 0.0 - 7.0 % INTERFACE SYSTEM BASOPHILS 1.0 0.0 - 1.0 % INTERFACE SYSTEM NEUTROPHIL ABSOLUTE 3.3 2.0 - 8.0 K/ul INTERFACE SYSTEM LYMPHOCYTE ABSOLUTE 2.1 1.2 - 4.0 K/ul INTERFACE SYSTEM MONOCYTE ABSOLUTE 0.5 0.1 - 0.6 K/ul INTERFACE SYSTEM EOSINOPHIL ABSOLUTE 0.2 0.0 - 0.7 K/ul INTERFACE SYSTEM BASOPHILS ABSOLUTE 0.1 0.0 - 0.2 K/ul INTERFACE SYSTEM 10/19/2007 6:25 AM WELLNESS INSTRUCTOR Sidney Sousa MD HEMATOLOGY ORDERABLES Edited INTERFACE SYSTEM Refer to clinic/hospital department * PROTIME-INR (10/19/2007 6:25 AM WELLNESS INSTRUCTOR) PROTIME 14.5 12.8 - 15.8 Secs INTERFACE SYSTEM Comment: As of 2007 note change in normal range. INR 1.0 INTERFACE SYSTEM Comment: Expected Values for INR: DVT/PE Goal INR 2.5; range 2.0 - 3.0 Valve Replacement Tissue Goal INR 2.5; range 2.0 - 3.0 Mechanical Goal INR 3.0; range 2.5 - 3.5 POST-PR Goal INR 2.5; range 2.0 - 3.0 or Goal 3.0; range 2.5 - 3.5 Atrial Fibrillation Goal INR 2.5; range 2.0 - 3.0 Ischemic Stroke Goal INR 2.5; range 2.0 - 3.0 For additional information see Guidelines for Anticoagulation available from the pharmacy [facility]. 10/19/2007 6:25 AM WELLNESS INSTRUCTOR Result Noris Sousa MD HEMATOLOGY ORDERABLES Edited Performing Organization Address [facility] Phone Number INTERFACE SYSTEM Refer to clinic/hospital department * (ABNORMAL) PTT (10/19/2007 6:25 AM WELLNESS INSTRUCTOR) PTT 76.1(H) 21.6 - 35.6 Secs INTERFACE SYSTEM Comment: Therapeutic Range: Hi-level PE/DVT heparin protocol 80.1 -95.0 sec Lo-level PE/DVT heparin protocol 67.1 - 80.0 sec Cardiac Heparin Protocol 67.1 - 85.0 sec Neuro Heparin Protocol 67.1 - 80.0 sec As of 08/31/2006 note change in APTT Normal Range. 10/19/2007 6:25 AM WELLNESS INSTRUCTOR Result Noris Sousa MD HEMATOLOGY ORDERABLES Edited Performing Organization Address [facility] de Phone Number INTERFACE SYSTEM Refer to clinic/hospital department * (ABNORMAL) POC GLUCOSE (10/19/2007 5:29 AM WELLNESS INSTRUCTOR) GLUCOSE POC 117(H) 60 - 100 mg/dL INTERFACE SYSTEM 10/19/2007 5:29 AM WELLNESS INSTRUCTOR Result Noris Sousa MD POINT OF CARE TESTING Edited Performing Organization Address City/[facility]/ZIP Co de Phone Number INTERFACE SYSTEM Refer to clinic/hospital department * (ABNORMAL) POC GLUCOSE (10/18/2007 9:36 PM WELLNESS INSTRUCTOR) GLUCOSE POC 134(H) 60 - 100 mg/dL INTERFACE SYSTEM 10/18/2007 9:36 PM WELLNESS INSTRUCTOR us Sidney Sousa MD POINT OF CARE TESTING Edited Performing Organization Address [facility] de Phone Number INTERFACE SYSTEM Refer to clinic/hospital department * (ABNORMAL) POC GLUCOSE (10/18/2007 5:35 PM WELLNESS INSTRUCTOR) GLUCOSE POC 106(H) 60 - 100 mg/dL INTERFACE SYSTEM 10/18/2007 5:35 PM WELLNESS INSTRUCTOR us Sidney Sousa MD POINT OF CARE TESTING Edited Performing Organization Address [facility] de Phone Number INTERFACE SYSTEM Refer to clinic/hospital department * (ABNORMAL) LIPID PANEL (10/18/2007 6:45 AM WELLNESS INSTRUCTOR) CHOLESTEROL 166 75 - 200 mg/dL INTERFACE SYSTEM TRIGLYCERIDE 106 0 - 200 mg/dL INTERFACE SYSTEM HDL 36(L) 40 - 60 mg/dL INTERFACE SYSTEM CALCULATED LDL CHOLESTEROL 109 0 - 130 mg/dL INTERFACE SYSTEM CALCULATED TOTAL CHOLESTEROL TO HDL RATIO 4.61 3.43 - 4.97 INTERFACE SYSTEM 10/18/2007 6:45 AM WELLNESS INSTRUCTOR us Sideny Sousa MD CHEMISTRY ORDERABLES Edited Performing Organization Address [facility] de Phone Number INTERFACE SYSTEM Refer to clinic/hospital department * CARDIAC ENZYMES (10/18/2007 6:45 AM WELLNESS INSTRUCTOR) TROPONIN I <0.1 0.0 - 1.3 ng/mL INTERFACE SYSTEM Comment: As of 07 the Troponin Reference Range has changed from 0.0-1.5 ng/ml to 0.0- 1.3 ng/ml due to a change in testing methodology. CKMB 1.1 0.0 - 5.0 ng/mL INTERFACE SYSTEM 10/18/2007 6:45 AM WELLNESS INSTRUCTOR John Paul Pérez DO CHEMISTRY ORDERABLES Edite d INTERFACE SYSTEM Refer to clinic/hospital department * (ABNORMAL) POC GLUCOSE (10/18/2007 5:31 AM WELLNESS INSTRUCTOR) GLUCOSE POC 111(H) 60 - 100 mg/dL INTERFACE SYSTEM 10/18/2007 5:31 AM WELLNESS INSTRUCTOR Sidney Sousa MD POINT OF CARE TESTING Edited Performing Organization Address City/[facility]/ZIP Co de Phone Number INTERFACE SYSTEM Refer to clinic/hospital department * (ABNORMAL) CBC WITHOUT DIFFERENTIAL (10/18/2007 3:50 AM WELLNESS INSTRUCTOR) WBC 6.4 4.8 - 10.8 K/ul INTERFACE SYSTEM RBC 4.56(L) 4.60 - 6.20 Mil/ul INTERFACE SYSTEM HEMOGLOBIN 13.6(L) 14.0 - 18.0 g/dL INTERFACE SYSTEM HEMATOCRIT 40.0(L) 41.0 - 53.0 % INTERFACE SYSTEM MCV 87.7 84.0 - 103.0 Fl INTERFACE SYSTEM MCH 29.8 27.0 - 34.0 pg INTERFACE SYSTEM MCHC 34.0 30.0 - 35.0 g/dL INTERFACE SYSTEM RDW 13.4 11.0 - 14.5 % INTERFACE SYSTEM PLATELETS 276 140 - 440 K/ul INTERFACE SYSTEM MPV 9.9 8.9 - 12.8 Fl INTERFACE SYSTEM NEUTROPHILS 53.7 42.2 - 75.2 % INTERFACE SYSTEM LYMPHOCYTES 33.3 24.0 - 44.0 % INTERFACE SYSTEM MONOCYTES 10.4(H) 2.0 - 10.0 % INTERFACE SYSTEM EOSINOPHILS 2.0 0.0 - 7.0 % INTERFACE SYSTEM BASOPHILS 0.6 0.0 - 1.0 % INTERFACE SYSTEM NEUTROPHIL ABSOLUTE 3.4 2.0 - 8.0 K/ul INTERFACE SYSTEM LYMPHOCYTE ABSOLUTE 2.1 1.2 - 4.0 K/ul INTERFACE SYSTEM MONOCYTE ABSOLUTE 0.7(H) 0.1 - 0.6 K/ul INTERFACE SYSTEM EOSINOPHIL ABSOLUTE 0.1 0.0 - 0.7 K/ul INTERFACE SYSTEM BASOPHILS ABSOLUTE 0.0 0.0 - 0.2 K/ul INTERFACE SYSTEM 10/18/2007 3:50 AM WELLNESS INSTRUCTOR Sidney Sousa MD HEMATOLOGY ORDERABLES Edited Performing Organization Address [facility] Phone Number INTERFACE SYSTEM Refer to clinic/hospital department * (ABNORMAL) PTT (10/18/2007 3:50 AM WELLNESS INSTRUCTOR) PTT 77.6(H) 21.6 - 35.6 Secs INTERFACE SYSTEM Comment: Therapeutic Range: Hi-level PE/DVT heparin protocol 80.1 -95.0 sec Lo-level PE/DVT heparin protocol 67.1 - 80.0 sec Cardiac Heparin Protocol 67.1 - 85.0 sec Neuro Heparin Protocol 67.1 - 80.0 sec As of 08/31/2006 note change in APTT Normal Range. 10/18/2007 3:50 AM WELLNESS INSTRUCTOR Sidney Sousa MD HEMATOLOGY ORDERABLES Edited Performing Organization Address [facility] Phone Number INTERFACE SYSTEM Refer to clinic/hospital department * CARDIAC ENZYMES (10/17/2007 11:58 PM WELLNESS INSTRUCTOR) TROPONIN I <0.1 0.0 - 1.3 ng/mL INTERFACE SYSTEM Comment: As of 07 the Troponin Reference Range has changed from 0.0-1.5 ng/ml to 0.0- 1.3 ng/ml due to a change in testing methodology. CKMB 1.4 0.0 - 5.0 ng/mL INTERFACE SYSTEM 10/17/2007 11:5 8 PM WELLNESS INSTRUCTOR John Paul Pérez DO CHEMISTRY ORDERABLES Edite d Performing Organization Address [facility] Phone Number INTERFACE SYSTEM Refer to clinic/hospital department * (ABNORMAL) PTT (10/17/2007 11:58 PM WELLNESS INSTRUCTOR) PTT 81.9(H) 21.6 - 35.6 Secs INTERFACE SYSTEM Comment: Therapeutic Range: Hi-level PE/DVT heparin protocol 80.1 -95.0 sec Lo-level PE/DVT heparin protocol 67.1 - 80.0 sec Cardiac Heparin Protocol 67.1 - 85.0 sec Neuro Heparin Protocol 67.1 - 80.0 sec As of 08/31/2006 note change in APTT Normal Range. 10/17/2007 11:5 8 PM WELLNESS INSTRUCTOR Sidney Sousa MD HEMATOLOGY ORDERABLES Edited INTERFACE SYSTEM Refer to clinic/hospital department * CARDIAC ENZYMES (10/17/2007 6:36 PM WELLNESS INSTRUCTOR) TROPONIN I <0.1 0.0 - 1.3 ng/mL INTERFACE SYSTEM Comment: As of 07 the Troponin Reference Range has changed from 0.0-1.5 ng/ml to 0.0- 1.3 ng/ml due to a change in testing methodology. 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
--- OUTSIDE RECORDS SUMMARY | 2025-07-10 17:15 | XMS_ITS | Encounter Summary ---
Author Organization [facility] Address [address] [place] [address] Care Team Providers Care Prosecuting Attorney Name Role Phone Natividad Martinez Robert FELIZP Primary Care Provider [phone] Reason for Referral * Radiology Services (Routine) - Closed Specialty Diagnoses / Procedures Referred By Jose carmona Referred To Contact Radiology Diagnoses Peripheral vascular disease, unspecified Procedures US DUPLEX ARTERIAL LEGS BILATERAL US ARTERIAL W SEG PRES LOWER EXERCISE Shanon Conklin CNS NO ADDRESS ON FILE [facility]- [address] [place] [address] Phone: tel: fax: Referral ID Status Reason Start Date Expiration Date Visits Re quested Visits Authorized [id number] Closed 11/29/2019 12/29/2020 1 1 TER CONTROL OPERATOR Encounter Details Date Type Department Care Team (Late st Contact Info) Description 11/30/2020 Ancillary Orders [facility] Vascular Surgery [address] [place] [address] Shanon Conklin CNS NO ADDRESS ON FILE Peripheral vascular disease, unspecified Social History Tobacco Use Types Packs/Day Years Used Date Smoking Tobacco: Every Day Cigarettes 0.5 47 Started: 07/02/1970; Last attempted to quit: 07/02/2017 Smokeless Tobacco: Never Alcohol Use Standard Drinks/Week Comments Yes 0 (1 standard drink = 0.6 oz pur e alcohol) on occasion Sex and Gender Information Value Date Recorded Sex Assigned at Not on file Legal Sex Male 6:53 AM COUNTER CONTROL OPERATOR Gender Identity Not on file Sexual Orientation Not on file COVID-19 Exposure Response Date Recorded In the last month, have you been in contact with someone who was confirmed or suspected to have Coronavirus / COVID-19? No / Unsure 11/30/2020 12:12 PM COUNTER CONTROL OPERATOR documented as of this encounter Plan of Treatment Not on file documented as of this encounter Results * US DUPLEX ARTERIAL LEGS BILATERAL (11/30/2020 1:14 PM COUNTER CONTROL OPERATOR) Anatomical Region Laterality Modality Lower Extremity Ultrasound 11/30/2020 12:2 7 PM COUNTER CONTROL OPERATOR Narrative 12/01/2020 8:51 PM COUNTER CONTROL OPERATOR [facility] [address] [place] [id number] Noninvasive Vascular Lab Arterial Exam Complete Lower Extremity Duplex Patient: Eloy Dyer Study ID: US DUPLEX ARTERI Gender: M : 1950 Age: 70 Room: Height: 180cm Weight: 103.4kg BSA: 2.3m\S\2 Pt status: Outpatient Study Date: 11/30/2020 Study Time: 12:27:05 PM BSA: 2.3m\S\2 Ordering: Shanon Conklin Interpreting:Arthur Jama MD, RPVI Staff Electronic Warfare Officer: Chen Parnell RVT Indications: Dx: Peripheral vascular disease, unspecified [I73.9 (ICD-10-CM)] Summary Impression: 1. Study demonstrates mild arterial insufficiency at rest involving the right lower extremityNo changefrom the study of 11/29/2019. 2. Moderately severe arterial insufficiency at rest involving the left lower extremity. KEN is slightly improved from 0.50 on the prior exam. 3. Patent right fem-PT bypass graft. 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 Prior right fem-pop bypass graft is noted. 4. Known left SFA occlusion with reconstitution of distal flow by collaterals. Recommendations: If clinically indicated suggest further evaluation using CTA, MRA, or Angiography. Study data: Bilateral lower extremity arterial duplex. Duplex scan and ankle-brachial index. Ethnicity: Ethnicity: white. Height: 180cm. Height: 70.9in. Weight: 103.4kg. Weight: 227.5lb. BMI: 31.9kg/m\S\2. BSA: 2.3m\S\2. Location: Vascular laboratory. Patient status: Outpatient. Study status: Routine. Procedure: A vascular evaluation was performed with the patient in the supine position. The right common femoral, right deep femoral, right femoral, right popliteal, right anterior tibial, right posterior tibial, right dorsal pedal, left common femoral, left deep femoral, left femoral, left popliteal, left anterior tibial, left posterior tibial, and left dorsal pedal arteries were studied. Ankle brachial indices Baseline Rt PT: 126mm Hg Rt DP: 0mm Hg Rt PT: 0.9 Rt DP: 0 Lt PT: 90mm Hg Lt DP: 70mm Hg Lt PT: 0.64 Lt DP: 0.5 Brachial pressures: - Rt brachial pressure (sys): 140mm Hg - Max brachial pressure (sys): 140mm Hg Arterial flow: - Right common femoral - 1.3m/sec Biphasic - Right deep femoral - 0.28m/sec - Right femoral - Occluded Fem-PT bypass graft Prox anast 0.91 m/s Prox 0.57 m/s Mid thigh 0.44 m/s Above knee 0.45 m/s Below knee 0.48 m/s Distal 0.38 m/s. - Right popliteal - Occluded - Right anterior tibial - Occluded - Right posterior tibial - distal - 0.58m/sec Triphasic - Right peroneal - distal - 0.28m/sec Monophasic - Left common femoral - 1.16m/sec Triphasic - Left deep femoral - 0.94m/sec Triphasic - Left popliteal - distal - 0.2m/sec Monophasic - Left anterior tibial - distal - 0.21m/sec Monophasic - Left posterior tibial - distal - 0.18m/sec Monophasic - Left peroneal - distal - 0.14m/sec Monophasic - Left femoral - Occluded [facility] is accredited with the [employer] Commission for the Accreditation of Vascular Laboratories (ICAVL) Prepared and Electronically Authenticated Arthur Jama MD, RPVI Confirmed 12/01/2020 20:51 Procedure Note Arthur Jama MD - 12/01/2020 [facility] [address] [place] [id number] Noninvasive Vascular Lab Arterial Exam Complete Lower Extremity Duplex Patient: Eloy Dyer Study ID: US DUPLEX ARTERI Gender: M : 1950 Age: 70 Room: Height: 180cm Weight: 103.4kg BSA: 2.3m\S\2 Pt status: Outpatient Study Date: 11/30/2020 Study Time: 12:27:05 PM BSA: 2.3m\S\2 Ordering: Shanon Conklin Interpreting:Arthur Jama MD, RPVI Staff Electronic Warfare Officer: Chen Parnell RVT Indications: Dx: Peripheral vascular disease, unspecified [I73.9 (ICD-10-CM)] Summary Impression: 1. Study demonstrates mild arterial insufficiency at rest involving the right lower extremityNo changefrom the study of 11/29/2019. 2. Moderately severe arterial insufficiency at rest involving the left lower extremity. KEN is slightly improved from 0.50 on the prior exam. 3. Patent right fem-PT bypass graft. 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 Prior right fem-pop bypass graft is noted. 4. Known left SFA occlusion with reconstitution of distal flow by collaterals. Recommendations: If clinically indicated suggest further evaluation using CTA, MRA, or Angiography. Study data: Bilateral lower extremity arterial duplex. Duplex scan and ankle-brachial index. Ethnicity: Ethnicity: white. Height: 180cm. Height: 70.9in. Weight: 103.4kg. Weight: 227.5lb. BMI: 31.9kg/m\S\2. BSA: 2.3m\S\2. Location: Vascular laboratory. Patient status: Outpatient. Study status: Routine. Procedure: A vascular evaluation was performed with the patient in the supine position. The right common femoral, right deep femoral, right femoral, right popliteal, right anterior tibial, right posterior tibial, right dorsal pedal, left common femoral, left deep femoral, left femoral, left popliteal, left anterior tibial, left posterior tibial, and left dorsal pedal arteries were studied. Ankle brachial indices Baseline Rt PT: 126mm Hg Rt DP: 0mm Hg Rt PT: 0.9 Rt DP: 0 Lt PT: 90mm Hg Lt DP: 70mm Hg Lt PT: 0.64 Lt DP: 0.5 Brachial pressures: - Rt brachial pressure (sys): 140mm Hg - Max brachial pressure (sys): 140mm Hg Arterial flow: - Right common femoral - 1.3m/sec Biphasic - Right deep femoral - 0.28m/sec - Right femoral - Occluded Fem-PT bypass graft Prox anast 0.91 m/s Prox 0.57 m/s Mid thigh 0.44 m/s Above knee 0.45 m/s Below knee 0.48 m/s Distal 0.38 m/s. - Right popliteal - Occluded - Right anterior tibial - Occluded - Right posterior tibial - distal - 0.58m/sec Triphasic - Right peroneal - distal - 0.28m/sec Monophasic - Left common femoral - 1.16m/sec Triphasic - Left deep femoral - 0.94m/sec Triphasic - Left popliteal - distal - 0.2m/sec Monophasic - Left anterior tibial - distal - 0.21m/sec Monophasic - Left posterior tibial - distal - 0.18m/sec Monophasic - Left peroneal - distal - 0.14m/sec Monophasic - Left femoral - Occluded [facility] is accredited with the [facility] Commission for the Accreditation of Vascular Laboratories (ICAVL) Prepared and Electronically Authenticated Arthur Jama MD, RPVI Confirmed 12/01/2020 20:51 Result [facility] Shanon Conklin [facility] US ORDERABLES Final Result documented in this encounter Visit Diagnoses Diagnosis Peripheral vascular disease, unspecified Peripheral vascular disease, unspecified documented in this encounter Care Teams Prosecuting Attorney Relationship Specialty Start Date End Date Natividad Martinez FNP [facility] [place] [address] PCP - General NURSE PRACTITIONER 02/17/18 documented as of this encounter
--- OUTSIDE RECORDS SUMMARY | 2025-07-10 17:15 | XMS_ITS | Encounter Summary ---
Author Organization [facility] Address [address] [place] [address] Care Team Providers Care Sales Professional Name Role Phone Natividad Martinez MICHAEL Primary Care Provider [phone] Encounter Details Date Type Department Care Team (Latest Contact Info) Description 01/02/2009 Ancillary Orders [facility] Cardiac Broadcast Field Supervisor [address] [place] [address] Elda Lamar MD [address] [facility] [address] [place] [address] Paroxysmal Supraventricular Tachycardia Social History Tobacco Use Types Packs/Day Years Used Date Smoking Tobacco: Never Assessed Sex and Gender Information Value Date Recorded Sex Assigned at Not on file 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 Palpitations, narrow complex tachycardia, likely supraventricular tachycardia, possible atrial flutter. 2. Diabetes. 3. Hypertension. 4. Hyperlipidemia. 5. Chronic obstructive pulmonary disease. POSTPROCEDURE DIAGNOSES: 1. Palpitations, narrow complex tachycardia, likely supraventricular tachycardia, possible atrial flutter. 2. Diabetes. 3. Hypertension. 4. Hyperlipidemia. 5. Chronic obstructive pulmonary disease. 6. Easily induced atrioventricular lambert re-entry tachycardia, status post radiofrequency ablation at the atrioventricular lambert slow pathway in this hospitalization. MATERIALS USED: 1. A 5, 6, 5-Bermudian sheath to the right femoral veins for the quadruple, Octapolar, quadruple electrode catheter to map HRA, His bundle and RV apex. 2. A 7-Bermudian sheath to the right internal jugular for the Orbiter electrode catheter to map the coronary sinus. 3. Later on, 5-Bermudian sheath changed to 8-Bermudian SRO long sheath for the 4-mm CARTO mapping/ablating catheter. PROCEDURES PERFORMED: 1. Comprehensive electrophysiology study. 2. Induced supraventricular tachycardia with isoproterenol infusion. 3. A 3D mapping of the AV lambert area and CS os area. 4. Radiofrequency ablation at the AV lambert slow pathway area. 5. Postablation comprehensive electrophysiology study, attempt to induce different kinds of supraventricular tachycardia. 6. Postablation electrophysiology study with isoproterenol, attempt to induce atrial tachycardia or atrial flutter. DESCRIPTION OF PROCEDURE: After informed consent was obtained, the patient was sent to the EP lab in postabsorptive state. Bilateral groins were prepped and the right neck was prepped in the usual fashion with sterile technique. The right groin was used and 3 needle sticks were used and the J-wire and safe sheath were used to obtain access. All catheters as mentioned above were placed for the study first. Baseline measurements as following: QTC is 423 msec, NE is 185 msec, QRS is 125 msec, QT is 435 msec, AH is 120 msec, HV is 55 msec, cycle length was 1052 msec. Ventricular decremental pacing 1:1 until 380 msec. Ventricular ERP was 600/240 msec, VA lambert ERP was less than 600/240 msec. Atrial decremental pacing 1:1 until 510 msec and with DC AV lambert dual physiology, AH increased from 208 msec to 300 msec., when we do the atrial stimulation from 800/610 to 800/600 msec. Atrial ERP was 800/300 msec. No atrial tachycardia or atrial flutter can be induced. One microgram per minute isoproterenol was then infused and at baseline, at a steady state, the baseline measurement with isoproterenol was as follows: NE is 166 msec, QRS is 136 msec, QT was 426 msec, AH is 140 msec, HV is 60 msec, cycle length is 940 msec. Again with isoproterenol we still see the jump from 800/530 to 800/520 and AH from 200 msec to 256 msec. AV lambert re-entry tachycardia was induced as evidenced by the concentric conduction and zero earliest V to earliest A and Morady maneuver was proceeded and clearly see the VAH pattern against atrial tachycardia. The characteristic of the SVT is as follows: Cycle length 470 msec, AH 330 msec, HV 60 msec, V to HRA was 4 msec, and V to His A was 60 msec. Earliest V to earliest A was 0. Isoproterenol was then stopped and 5-Bermudian sheath from the right femoral vein was changed to SRO 8-Bermudian sheath and 4-mm CARTO mapping catheter was inserted into the heart. Three dimensional mapping proceeded and we mapped anatomically in the His bundle and the CS area. Radiofrequency ablation guided by the AV lambert slow pathway potential, 50 hameed and 60 degrees as the maximum power and temperature. Due to the catheter position unstable during the whole procedure, several ablations were proceeded around the slow pathway area. Totally 9 ablations were proceeded and the total time of ablation was 235 seconds. Multiple junctional rhythm but not persistent junction rhythm was seen; but not persistent likely due to unstable catheter position. After the final ablation, we did a baseline study again. Postablation, AV lambert ERP was 800/490 msec. We did not see the AV lambert dual physiology any more. Atrial decremental pacing 1:1 until 570 msec. One microgram per minute isoproterenol was then infused, at a steady state, ventricular decremental pacing postablation 1:1 until 350 msec. Ventricular ERP was 600 to 130 msec. No SVT or VT can be induced. Atrial decremental pacing 1:1 until 500 msec postablation on isoproterenol. Atrial ERP was 700/430 msec postablation on isoproterenol. No AV lambert dual physiology and no atrial flutter or atrial tachycardia could be induced, isoproterenol postablation. Again atrial decremental pacing showed 470 msec 1:1. FINAL BASELINE: NE 180 msec, QRS 160 msec, QT is 400 msec, AH is 110 msec, HV 60 msec, cycle length 810 msec. Throughout the procedure, the patient was hemodynamically and oxygenation stable. The patient received totally 4 mg of Versed and 100 mcg fentanyl. Total fluoroscopy time was 14.7 minutes. No complications were noticed. FINAL SUMMARY: 1. Normal electrode conduction system. 2. Repeatedly AV lambert dual physiology was seen and AV lambert reentry tachycardia was stimulated before ablation and not able to see the AV lambert dual physiology and not able to see any SVT postablation with or without isoproterenol. TT-rm D: [id number] V: [id number] Narrative [facility] - 02/04/2009 10:43 AM CDT Please see dictated Operative Note. Procedure Note Elda Lamar MD - 02/04/2009 Please see dictated Operative Note. us Elda Lamar MD FLUOROSCOPY ORDERABLES Edited Result - Final [facility] documented in this encounter Visit Diagnoses Diagnosis Paroxysmal supraventricular tachycardia Paroxysmal supraventricular tachycardia documented in this encounter Care Teams Sales Professional Relationship Specialty Start Date End Date Natividad Martinez FNP [address] [place] [address] PCP - General NURSE PRACTITIONER 02/17/18 documented as of this encounter
--- OUTSIDE RECORDS SUMMARY | 2025-07-10 17:15 | XMS_ITS | Encounter Summary ---
Author Organization [facility] Address [address] [place] [address] Care Team Providers Care Intermodal Customer Service Name Role Phone Natividad Martinez Primary Care Provider [phone] Encounter Details Date Type Department Care Team (Late st Contact Info) Description 08/18/[address] [facility] [address] [place] [address] AMBULANCE, 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
--- OUTSIDE RECORDS SUMMARY | 2025-07-10 17:15 | XMS_ITS | Encounter Summary ---
Author Organization [facility] Address [address] [place] [address] Care Team Providers Care Revenue Field Agent Name Role Phone MartinezNatividad cheng Robert RODRIGUEZ Primary Care Provider [phone] Reason for Referral * Outpatient Services (Routine) - Closed Specialty Diagnoses / Procedures Referred By Jose carmona Referred To Contact Radiology Diagnoses Renal mass Procedures MRI ABDOMEN W WO CONTRAST MRI ABDOMEN PELVIS W WO CONT Blake Wallace MD [address] [place] [address] Phone: tel: fax: [facility] MRI [address] [place] [address] Phone: tel: fax: Referral ID Status Reason Start Date Expiration Date Visits Re quested Visits Authorized [id number] Closed 02/26/2018 03/27/2018 1 1 Encounter Details Date Type Department Care Team (Late st Contact Info) Description 01/11/2018 Ancillary Orders 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 Post ablation changes of the left kidney with a small focus of questionable enhancing soft tissue at the lower pole that may represent scarring although residual lesion cannot be excluded. Attention on follow-up MRI in six months is recommended. 2. No findings to suggest metastatic disease in the abdomen otherwise. There is a pancreatic minute cystic lesion that probably represents an epithelial cyst or side branch IPMN. Attention on follow-up MRI for the left kidney to document stability will be needed. 3. Incidental findings as above. [id number] Narrative 02/27/2018 3:21 PM CDT MRI ABDOMEN W WO CONTRAST CLINICAL HISTORY: Renal mass COMPARISON: 12/08/2017 TECHNIQUE: Multisequence and multiplanar MRI of the abdomen was performed with and without IV contrast per protocol. 20 mL of IV MultiHance was utilized. FINDINGS: MRI ABDOMEN: LIVER: The liver shows mild steatosis. No suspicious hepatic lesion is seen. The portal vein is patent. BILIARY AND GALLBLADDER: Fluid sensitive images do not reveal biliary dilatation, filling defect, or a cholangitic pattern. SPLEEN: The spleen is not enlarged. PERITONEUM: No ascites is seen. PANCREAS: Punctate pancreatic cystic lesion is noted within the pancreatic body that does not show aggressive features on image 17 series 6. Remainder of the pancreas is unremarkable. KIDNEYS: The kidneys enhance symmetrically and do not show evidence of hydronephrosis. Post ablation changes of the left kidney are noted at its lower pole. A majority of the signal abnormality at the ablation site represents blood products. However, there is a small focus of questionably enhancing tissue at the ablation site adjacent to otherwise normal left renal parenchyma. No other suspicious focal renal masses are seen. ADRENAL GLANDS: The adrenal glands are unremarkable. BOWEL: Bowel caliber is within normal limits without evidence of obstruction. No retroperitoneal enlarged lymph nodes are seen. LUNG BASES: The included lung bases demonstrate no large focal lesions. Procedure Note Lawrence Aragon MD - 02/27/2018 MRI ABDOMEN W WO CONTRAST CLINICAL HISTORY: Renal mass COMPARISON: 12/08/2017 TECHNIQUE: Multisequence and multiplanar MRI of the abdomen was performed with and without IV contrast per protocol. 20 mL of IV MultiHance was utilized. FINDINGS: MRI ABDOMEN: LIVER: The liver shows mild steatosis. No suspicious hepatic lesion is seen. The portal vein is patent. BILIARY AND GALLBLADDER: Fluid sensitive images do not reveal biliary dilatation, filling defect, or a cholangitic pattern. SPLEEN: The spleen is not enlarged. PERITONEUM: No ascites is seen. PANCREAS: Punctate pancreatic cystic lesion is noted within the pancreatic body that does not show aggressive features on image 17 series 6. Remainder of the pancreas is unremarkable. KIDNEYS: The kidneys enhance symmetrically and do not show evidence of hydronephrosis. Post ablation changes of the left kidney are noted at its lower pole. A majority of the signal abnormality at the ablation site represents blood products. However, there is a small focus of questionably enhancing tissue at the ablation site adjacent to otherwise normal left renal parenchyma. No other suspicious focal renal masses are seen. ADRENAL GLANDS: The adrenal glands are unremarkable. BOWEL: Bowel caliber is within normal limits without evidence of obstruction. No retroperitoneal enlarged lymph nodes are seen. LUNG BASES: The included lung bases demonstrate no large focal lesions. IMPRESSION: 1. Post ablation changes of the left kidney with a small focus of questionable enhancing soft tissue at the lower pole that may represent scarring although residual lesion cannot be excluded. Attention on follow-up MRI in six months is recommended. 2. No findings to suggest metastatic disease in the abdomen otherwise. There is a pancreatic minute cystic lesion that probably represents an epithelial cyst or side branch IPMN. Attention on follow-up MRI for the left kidney to document stability will be needed. 3. Incidental findings as above. [id number] Blake Wallace MD MR ORDERABLES Final Result documented in this encounter Visit Diagnoses Diagnosis Renal mass Unspecified disorder of kidney and ureter Renal mass Unspecified disorder of kidney and ureter documented in this encounter Care Teams Revenue Field Agent Relationship Specialty Start Date End Date Natividad Martinez FNP [address] [place] [address] PCP - General NURSE PRACTITIONER 02/17/18 documented as of this encounter
--- OUTSIDE RECORDS SUMMARY | 2025-07-10 17:15 | XMS_ITS | Encounter Summary ---
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 Social History Tobacco Use Types Packs/Day Years Used Date Smoking Tobacco: Never Assessed Sex and Gender Information Value Date Recorded Sex Assigned at Not on file Legal Sex Male 10:31 AM EDT Gender Identity Not on file Sexual Orientation Not on file documented as of this encounter Plan of Treatment Upcoming Encounters Date Type Department Care Team (Late st Contact Info) Description 07/22/2025 10:00 AM CDT Office Visit [facility] [address] [place] [id number] Sammi Serrano NP [address] [place] [address] [place] [address] documented as of this encounter Visit Diagnoses Diagnosis 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
--- OUTSIDE RECORDS SUMMARY | 2025-07-10 17:16 | XMS_ITS | Encounter Summary ---
Author Organization [facility] Address [address] [place] [address] Care Team Providers Care Veneer Sawyer Name Role Phone Natividad Martinez Primary Care Provider [phone] Reason for Referral * Radiology Services (Routine) - Closed Specialty Diagnoses / Procedures Referred By Jose carmona Referred To Contact Radiology Diagnoses Nontoxic single thyroid nodule Procedures US HEAD NECK TISSUES Natividad Martinez FNP [address] [place] [address] Phone: tel: fax: [facility] [address] [place] [address] Phone: tel: fax: Referral ID Status Reason Start Date Expiration Date V isits Requested Visits Authorized [id number] Closed [facility] CTS to Schedule (SGF) 07/16/2018 08/16/2019 1 1 Encounter Details Date Type Department Care Team (Latest Contact Info) Description 07/16/2018 Ancillary Orders [facility] Centralized Scheduling [address] [place] [phone] Natividad Martinez FNP [address] [place], [place] [id number] Nontoxic single thyroid nodule Social History Tobacco Use Types Packs/Day Years Used Date Smoking Tobacco: Former Cigarettes Q uit: 07/02/2017 Smokeless Tobacco: Never Alcohol Use Standard Drinks/Week Comments Yes 0 (1 standard drink = 0.6 oz pur e alcohol) on occasion Sex and Gender Information Value Date Recorded Sex Assigned at Not on file 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 Exam: US HEAD NECK TISSUES Date/Time of Exam: 07/17/2018 10:47 AM Reason For Exam: See Diagnosis Diagnosis: Nontoxic single thyroid nodule Findings: COMPARISON:None. RIGHT LOBE OF THYROID MEASURES 5.4 x 1.6 x 1.8 CM (VOLUME 7.7 ML). Right thyroid nodules: Heterogeneous appearance of the thyroid without discrete nodule. ISTHMUS: measures 6.5 mm. Isthmus nodule: Possible nodule within the isthmus measuring 0.6 x 0.3 x 0.7 cm appearing isoechoic with a thin hypoechoic rim without demonstrable internal microcalcification or vascularity. Low suspicion pattern by JENNY criteria (5-10% risk) Surveillance is recommended due to size less than 1.5 cm. THE LEFT LOBE OF THE THYROID MEASURES 5.6 x 2.9 x 2.4 CM (VOLUME 18.9 ML). Left thyroid nodules: Enlarged left lobe of the thyroid with heterogeneous appearance. No hypervascularity. IMPRESSION: 1. There is asymmetric enlargement of the left lobe of the thyroid without discrete underlying nodule within the left lobe of the thyroid identified. There is a solitary nodule seen within the isthmus measuring 0.7 cm, this is a low suspicion nodule. Continued surveillance recommended due to small size. [id number] Narrative Procedure Note Juan Wheeler MD - 07/17/2018 IMPRESSION: Please see below. Exam: US HEAD NECK TISSUES Date/Time of Exam: 07/17/2018 10:47 AM Reason For Exam: See Diagnosis Diagnosis: Nontoxic single thyroid nodule Findings: COMPARISON:None. RIGHT LOBE OF THYROID MEASURES 5.4 x 1.6 x 1.8 CM (VOLUME 7.7 ML). Right thyroid nodules: Heterogeneous appearance of the thyroid without discrete nodule. ISTHMUS: measures 6.5 mm. Isthmus nodule: Possible nodule within the isthmus measuring 0.6 x 0.3 x 0.7 cm appearing isoechoic with a thin hypoechoic rim without demonstrable internal microcalcification or vascularity. Low suspicion pattern by JENNY criteria (5-10% risk) Surveillance is recommended due to size less than 1.5 cm. THE LEFT LOBE OF THE THYROID MEASURES 5.6 x 2.9 x 2.4 CM (VOLUME 18.9 ML). Left thyroid nodules: Enlarged left lobe of the thyroid with heterogeneous appearance. No hypervascularity. IMPRESSION: 1. There is asymmetric enlargement of the left lobe of the thyroid without discrete underlying nodule within the left lobe of the thyroid identified. There is a solitary nodule seen within the isthmus measuring 0.7 cm, this is a low suspicion nodule. Continued surveillance recommended due to small size. 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
--- NOTE | 2025-07-10 17:54 | W.ED.SOB ---
HPI - SOB/Dyspnea General: Chief Complaint: Shortness of Breath/Dyspnea Stated Complaint: SOB Time Seen by Provider: 07/10/25 16:44 Source: patient and old records reviewed Mode of arrival: EMS Limitations: no limitations History of Present Illness: HPI Narrative: Patient is a 75-year-old male with past medical history of diabetes, COPD, CHF, and atrial fibrillation who is presenting to the emergency department by ambulance due to shortness of breath for multiple weeks. He states that he woke up from a nap and could not breathe, he does not require home O2 but does have albuterol and nebulized breathing treatments at home. EMS did give 2 DuoNeb treatments and route that patient states ameliorated his symptoms, he is noted to be sleeping at time of examination. States that he has had a chronic productive cough as well. No chest pain. He is not reporting any fevers, chills, nausea/vomiting, or any other symptoms of systemic illness. States that he quit smoking yesterday. Currently at this time he is 92 to 94% SPO2 on room air. Rest of his vitals unremarkable. Afebrile. MD elicited complaint: shortness of breath and cough Pertinent past history: COPD, congestive heart failure and diabetes Onset (ago): week(s) Timing: constant Severity: similar to previous episodes Known history of: COPD, congestive heart failure and diabetes Associated symptoms: Deny abdominal pain, chest pain, fever(s), lightheadedness, nausea, palpitations or vomiting Treatment prior to arrival: bronchodilator Related Data Home Medications ?Medication ?Instructions ?Recorded ?Confirmed vitamin B complex (B 1 tab PO DAILY 10/04/19 06/30/25 Complex-Vitamin B12 tablet) rosuvastatin 40 mg tablet (Crestor) 40 mg PO DAILY 06/04/20 06/30/25 gabapentin 300 mg capsule 300 mg PO TID 06/30/21 06/30/25 cholecalciferol (vitamin D3) 50 50 mcg PO DAILY 08/31/21 06/30/25 mcg (2,000 unit) capsule dapagliflozin propanediol 10 mg 10 mg PO DAILY 01/04/22 06/30/25 tablet (Farxiga) omega-3 fatty acids-fish oil 684 1 cap PO DAILY 09/07/22 06/30/25 mg-1,200 mg capsule,delayed release ipratropium 20 mcg-albuterol 100 1 puff inhalation Q6H PRN 04/30/25 06/30/25 mcg/actuation mist for inhalation (Combivent Respimat) Previous Rx's ?Medication ?Instructions ?Recorded amlodipine 2.5 mg tablet 2.5 mg PO DAILY #90 tabs 01/14/20 ezetimibe 10 mg tablet 10 mg PO DAILY #90 tabs 01/15/20 Diabetic shoes with 3 sets of #1 ea 05/24/22 inserts with toe filler on right Cam Boot #1 ea 01/23/23 nitroglycerin 0.4 mg sublingual 0.4 mg sublingual Q5M PRN chest 06/05/23 tablet pain #30 tabs sacubitril 24 mg-valsartan 26 mg 1 tab PO BID #180 tabs 03/11/24 tablet (Entresto) apixaban 5 mg tablet (Eliquis) 5 mg PO BID #180 tabs 09/24/24 clopidogrel 75 mg tablet 75 mg PO DAILY #90 tabs 11/07/24 metoprolol succinate 25 mg 37.5 mg (1.5 x 25 mg) PO DAILY 03/27/25 tablet,extended release 24 hr #135 tabs sulfasalazine 500 mg tablet 0.5 g PO BID #60 tabs 04/14/25 secukinumab 150 mg/mL subcutaneous See Rx Instructions .Route 06/12/25 syringe (Cosentyx) .COMPLEX #2 mL tramadol 50 mg tablet 50 mg PO Q8H PRN pain (scale score 06/12/25 7-10) #60 tabs doxycycline hyclate 100 mg tablet 100 mg PO BID 10 days #20 tabs 07/10/25 Allergies Allergy/AdvReac Type Severity Reaction Status Date / Time ciprofloxacin (From Cipro) Allergy ALGY-Hives Verified 06/30/25 13:14 lisinopril AdvReac Mild cough Verified 06/30/25 13:14 Review of Systems General: Reports: 10 or more systems reviewed and unremarkable except in HPI and below Const: Denies: fever(s), chills or fatigue Eyes: Denies: change in vision ENMT: Denies: throat pain, ear or mastoid pain or nasal discharge Card: Denies: chest pain, palpitations, swelling of feet/ankles or lightheadedness Resp: Reports: dyspnea, productive cough and wheezing GI: Denies: abdominal pain, nausea, vomiting, diarrhea or constipation : Denies: flank pain, difficulty urinating, dysuria or urinary frequency Musc: Denies: neck pain, back pain or joint pain Skin/Breast: Denies: rash Neuro: Denies: headache(s), numbness in extremities or weakness in extremities PFSH ED PFSH: Medical History Diabetes Anticoagulation adequate with anticoagulant therapy Hypoxemia Tachycardia Axial spondyloarthritis Osteoarthritis of knees, bilateral Benign essential HTN HLA B27 (HLA B27 positive) Atrial fibrillation Diabetes mellitus type 2, diet-controlled Hypertension Atherosclerosis of [place] coronary artery of [place] heart without angina pectoris CHF (congestive heart failure) Carotid stenosis Hyperlipidemia PSA elevation Erectile dysfunction Displacement of femoral arterial bypass graft CKD (chronic kidney disease) H/O renal cell cancer Ankylosing spondylitis Gout, arthritis Localized osteoarthritis of left knee PAD (peripheral artery disease) history of right superficial femoral artery bypass Surgical History Status post colonoscopy History of cardiac radiofrequency ablation History of femoropopliteal bypass History of kidney surgery FROZE KIDNEY DUE TO KIDNEY CANCER History of permanent cardiac pacemaker placement 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 History of carotid endarterectomy History of back surgery History of elbow surgery H/O heart surgery History of shoulder surgery left History of pacemaker Family History Father , AT AGE 80 CAD (coronary artery disease) Family history of premature coronary artery disease Dementia Brother Family history of premature coronary artery disease Dementia Diabetes Sister Cancer oldest Sister Cancer youngest Mother , AT AGE 84 Dementia Denies family history of Clotting disorder Hyperlipidemia Psychiatric illness Chronic kidney disease (CKD) Suicide Anesthesia complication Bleeding disorder Lung disease Hypertension Stroke Social History Smoking and tobacco/nicotine status: current some day tobacco/nicotine user (current every day smoker (0.5 ppd) Smoking/Vaping Counsling Given) cigarettes Packs smoked per day: 0.5 [ Other cigarette details: Started 1968] Second hand smoke exposure: Yes Alcohol intake: current Alcohol intake frequency: few times a week Alcohol type: beer Substance/Drug Use: never Lives independently: No Household members: spouse Marital status: Current occupational status: retired Physical Exam Const: COMMON NORMALS: no acute distress, patient oriented x3 and no limitations GENERAL APPEARANCE: cooperative, comfortable and well developed ORIENTATION/CONSCIOUSNESS: Yes awake, Yes oriented to person, Yes oriented to place and Yes oriented to time HENMT: COMMON NORMALS: normocephalic, atraumatic and hearing grossly normal bilaterally HEAD & SCALP: normocephalic and atraumatic Eye: COMMON NORMALS: Equal, round and reactive pupils present, EOMs intact bilaterally and conjunctivae normal CONJUNCTIVA: Yes conjunctivae normal PUPIL: Yes Equal, round and reactive pupils present Neck/C-Spine: COMMON NORMALS: full ROM and supple Resp: COMMON NORMALS: normal respiratory effort, No retractions and No use of accessory muscles OTHER: Barrel chest. Diffuse expiratory wheezing heard throughout. No respiratory distress at this time. Actively coughing. Cardio: COMMON NORMALS: regular rate, regular rhythm, No clicks present (Cardio), No murmurs present (Cardio) and No rub (Cardio) RATE: regular rate RHYTHM: regular rhythm Extremity: COMMON NORMALS: full ROM and capillary refill normal NARRATIVE EXTREMITY EXAM: 2+ edema to right lower extremity, chronic. No warmth or erythema. Neuro: COMMON NORMALS: patient oriented x3, moves all extremities, no focal motor deficits and no sensory deficits noted SENSORIUM/ORIENTATION: Yes oriented to person, Yes oriented to place and Yes oriented to time Skin: COMMON NORMALS: no rashes or lesions noted GENERAL SKIN EXAM: no rashes or lesions noted Course Vital Signs: Vital signs: Vital Signs Temperature 98.2 F 07/10/25 16:32 Pulse Rate 73 07/10/25 20:42 Respiratory Rate 16 07/10/25 17:46 Blood Pressure 140/61 07/10/25 20:42 Pulse Oximetry 92 07/10/25 20:42 Oxygen Delivery Me thod Room Air 07/10/25 20:18 MDM - SOB/Dyspnea Medical Decision Making This patient presented by ambulance for shortness of breath, this been going on for weeks and he has had increasing productive cough. He was given DuoNeb therapy and route this greatly improved his symptoms by the time I examined him. He had diffuse expiratory wheezing throughout, he is have a history of COPD and is a current everyday smoker. Chest x-ray showing cardiomegaly and possible minimal infiltrate. Lab work revealing elevation in BNP, he is also positive for COVID. Also suspect that this is a COPD exacerbation, I offered him admission to the hospital for observation despite him maintaining normal oxygenation on room air here, however he states that he does not want admitted and wants to go home. He will be started on outpatient doxycycline and told to continue his breathing treatments at home and to return if his condition worsens. He does agree to this. Discharge at this time. Lab Data 07/10/25 17:52 07/10/25 19:10 Labs/Radiology: Radiology Impressions Chest X-Ray 07/10/25 17:14 IMPRESSION: 1. Cardiomegaly mild pulmonary vascular congestion. 2. Right hilar atelectasis versus minimal infiltrate. 3. Aortic atherosclerotic calcifications. 4. Left-sided pacemaker. Laboratory Results WBC 3.76 10^3/uL (3.29-11.43) 07/10/25 17:52 RBC 4.31 10^6/uL (3.85-5.65) 07/10/25 17:52 Hgb 13.80 g/dL (11.27-16.99) 07/10/25 17:52 Hct 41.3 % (37-53) 07/10/25 17:52 MCV 95.8 fl (82-101) 07/10/25 17:52 MCH 32.0 pg (27-33) 07/10/25 17:52 MCHC 33.4 g/dL (30-55) 07/10/25 17:52 RDW 14.6 % (12.1-15.1) 07/10/25 17:52 Plt Count 111 10^3/cmm (157-399) L 07/10/25 17:52 MPV 10.8 fL (7.4-10.4) H 07/10/25 17:52 Neut % (Auto) 87.5 % 07/10/25 17:52 Lymph % (Auto) 4.0 % 07/10/25 17:52 [place] % (Auto) 7.7 % 07/10/25 17:52 Eos % (Auto) 0.0 % 07/10/25 17:52 Baso % (Auto) 0.3 % 07/10/25 17:52 Neut # (Auto) 3.29 10^3/uL (1.8-7.7) 07/10/25 17:52 Lymph # (Auto) 0.2 10^3/uL (0.8-4.8) L 07/10/25 17:52 [place] # (Auto) 0.3 10^3/uL (0.2-0.9) 07/10/25 17:52 Eos # (Auto) 0.0 10^3/uL (0.0-0.8) 07/10/25 17:52 Baso # (Auto) 0.0 10^3/uL (0.0-0.1) 07/10/25 17:52 Nucleated RBC % (auto) 0 % 07/10/25 17:52 Nucleated RBCs # 0.0 /100WBC 07/10/25 17:52 Sodium 135 mmol/L (136-145) L 07/10/25 19:10 Potassium 3.7 mmol/L (3.5-5.1) 07/10/25 19:10 Chloride 96 mmol/L (98-107) L 07/10/25 19:10 Carbon Dioxide 22 mmol/L (22-29) 07/10/25 19:10 Anion Gap 20.7 (5-19) H 07/10/25 19:10 BUN 18 mg/dL (8-23) 07/10/25 19:10 Creatinine 1.1 mg/dL (0.7-1.2) 07/10/25 19:10 GFR Calculation Not Reportable 07/10/25 19:10 Glucose 125 mg/dL (65-115) H 07/10/25 19:10 Calculated Osmolality 283 mOsm/kg (285-295) L 07/10/25 19:10 Calcium 8.7 mg/dL (8.5-10.5) 07/10/25 19:10 Total Bilirubin 0.7 mg/dL (0.15-1.2) 07/10/25 19:10 AST 17 U/L (0-40) 07/10/25 19:10 ALT 10 U/L (0-41) 07/10/25 19:10 Alkaline Phosphatase 111 U/L (40-130) 07/10/25 19:10 NT-Pro-B Natriuret Pep 8189 pg/mL (0-450) H 07/10/25 19:10 Total Protein 6.5 g/dL (6.6-8.7) L 07/10/25 19:10 Albumin 3.7 g/dL (3.5-5.2) 07/10/25 19:10 Globulin 2.8 g/dL (1.3-4.6) 07/10/25 19:10 Influenza A (PCR) Negative (Negative) 07/10/25 17:37 Influenza Type B (PCR) Negative (Negative) 07/10/25 17:37 RSV (PCR) Negative (Negative) 07/10/25 17:37 SARS-CoV-2 (PCR) Positive (Negative) A 07/10/25 17:37 All radiology interpretation(s) finalized by discharge Discharge Plan Discharge Patient Disposition: Home Clinical Impression: COPD exacerbation, COVID-19 Condition: Stable Prescriptions: New doxycycline hyclate 100 mg tablet 100 mg PO BID 10 Days Qty: 20 0RF No Action vitamin B complex [B Complex-Vitamin B12] Tablet 1 tab PO DAILY gabapentin 300 mg capsule 300 mg PO TID cholecalciferol (vitamin D3) 50 mcg (2,000 unit) capsule 50 mcg PO DAILY (DME) Diabetic shoes with 3 sets of inserts with toe filler on right See Rx Instructions .Route .MEDSUPPLY Qty: 1 0RF Rx Instructions: As directed by [facility] (DME) Ravin Vogt See Rx Instructions .Route .MEDSUPPLY Qty: 1 0RF Rx Instructions: As directed metoprolol succinate 25 mg tablet extended release 24 hr 37.5 mg PO DAILY Qty: 135 3RF Combivent Respimat 20-100 mcg/actuation mist 1 puff inhalation Q6H PRN Cosentyx 150 mg/mL syringe See Rx Instructions .ROUTE .COMPLEX Qty: 2 5RF Dose Instruction: INJECT two syringes (300mg) UNDER THE SKIN EVERY FOUR WEEKS FOR ankylosing spondylitis Rx Instructions: INJECT two syringes (300mg) UNDER THE SKIN EVERY FOUR WEEKS FOR ankylosing spondylitis tramadol 50 mg tablet 50 mg PO Q8H PRN (Reason: pain (scale score 7-10)) Qty: 60 0RF amlodipine 2.5 mg tablet 2.5 mg PO DAILY Qty: 90 3RF ezetimibe 10 mg tablet 10 mg PO DAILY Qty: 90 3RF rosuvastatin [Crestor] 40 mg tablet 40 mg PO DAILY Farga 10 mg tablet 10 mg PO DAILY nitroglycerin 0.4 mg tablet, sublingual 0.4 mg sublingual Q5M PRN (Reason: chest pain) Qty: 30 2RF Entresto 24-26 mg tablet 1 tab PO BID Qty: 180 3RF Eliquis 5 mg tablet 5 mg PO BID Qty: 180 3RF clopidogrel 75 mg tablet 75 mg PO DAILY Qty: 90 3RF sulfasalazine 500 mg tablet 0.5 g PO BID Qty: 60 2RF Rx Instructions: give with food omega-3 fatty acids-fish oil 684-1,200 mg Capsule,Delayed Release(Dr/Ec) 1 cap PO DAILY Discharge Orders: Discharge ED (Routine); Ordered 07/10/25 Ordered By: Sidney Arizmendi Referrals: Erendira San NP [Primary Care Provider, Nurse Practitioner] Patient Instructions: Patient Portal & Bryan Instructions Activity Restrictions/Additional Instructions: COPD COVID Discharge Instructions You have been diagnosed with a flare-up of chronic obstructive pulmonary disease (COPD) and COVID-19. You are being treated at home. Please follow these instructions carefully: - Medications: - Take doxycycline as prescribed: one tablet twice daily for 10 days. Finish the entire course unless told otherwise by your doctor. - Continue your regular breathing treatments (inhalers or nebulizers) as directed. Use your rescue inhaler (such as albuterol) if you feel short of breath. - If you use a nebulizer, try to use it in a well-ventilated room and clean it regularly to reduce the risk of spreading germs. - COVID-19 Precautions: - Stay at home and avoid contact with others until you are no longer contagious, following local health guidelines. - Wash your hands often, wear a mask if you must be around others, and disinfect surfaces frequently. - Activity and Support: - Stay active as you are able, but rest when needed. Keep in touch with family and friends by phone or video to avoid feeling isolated. - Make sure you have enough medication at home. - When to Seek Help: - Call your doctor or return to the emergency room immediately if you experience any of the following: - Worsening shortness of breath or trouble breathing - Chest pain - High fever - Confusion or trouble waking up - Blue lips or face - Swelling in your legs - Unable to keep down fluids or medications - Any new or worsening symptoms - Follow-Up: - Schedule a follow-up appointment within one week to check your recovery and adjust your treatment if needed. - If you have questions or concerns, contact your healthcare provider. Recovery from a COPD flare-up may take several weeks. Some symptoms may persist, especially after COVID-19. Take your medications as directed and monitor your symptoms closely. If you have any doubts or feel worse, do not wait?seek medical attention. Print Language: Indian Coding Level of Care Code ED Motor Vehicle Operator Road Supervisor for Edouard Garcia
[2025-07-10 18:08] LABS: Hematocrit 41.3 % (37-53); Hemoglobin 13.80 g/dL (11.27-16.99); Mean Corpuscular HGB Conc 33.4 g/dL (30-55); Mean Corpuscular Hemoglobin 32.0 pg (27-33); Mean Corpuscular Volume 95.8 fl (82-101); Nucleated Red Blood Cells % 0 %; Platelet Count 111 10^3/cmm (157-399); Red Blood Count 4.31 10^6/uL (3.85-5.65); White Blood Count 3.76 10^3/uL (3.29-11.43)
[2025-07-10 18:26] LABS: Respiratory Syncytial Virus Ce NEGATIVE (Negative)
[2025-07-10 18:54] LABS: SARS-CoV-2 PCR Positive (Negative)
[2025-07-10 20:14] LABS: Alanine Aminotransferase 10 U/L (0-41); Albumin Level 3.7 g/dL (3.5-5.2); Alkaline Phosphatase 111 U/L (40-130); Anion Gap 20.7 (5-19); Aspartate Amino Transferase 17 U/L (0-40); Blood Urea Nitrogen 18 mg/dL (8-23); Calcium 8.7 mg/dL (8.5-10.5); Carbon Dioxide 22 mmol/L (22-29); Chloride 96 mmol/L (98-107); Creatinine Clr Calc Pharmacy 64.7761; Globulin 2.8 g/dL (1.3-4.6); Glucose 125 mg/dL (65-115); NT Pro B Type Natriuretic Pept 8189 pg/mL (0-450); Osmolality Calculated 283 mOsm/kg (285-295); Potassium 3.7 mmol/L (3.5-5.1); Sodium 135 mmol/L (136-145); Total Protein 6.5 g/dL (6.6-8.7)
== END 2025-07-10 20:43 | disposition home or self-care (01) ==
PROVIDERS: Emergency Provider Physician Assistant; PCP Nurse Practitioner Family
DX: J44.1 Chronic obstructive pulmonary disease with (acute) exacerbation (principal); U07.1 COVID-19; Z79.01 Long term (current) use of anticoagulants; Z79.02 Long term (current) use of antithrombotics/antiplatelets; Z11.52 Encounter for screening for COVID-19; F17.210 Nicotine dependence, cigarettes, uncomplicated; I25.10 Atherosclerotic heart disease of native coronary artery without angina pectoris; E78.5 Hyperlipidemia, unspecified; E11.22 Type 2 diabetes mellitus with diabetic chronic kidney disease; I13.0 Hypertensive heart and chronic kidney disease with heart failure and stage 1 through stage 4 chronic kidney disease, or unspecified chronic kidney disease; N18.9 Chronic kidney disease, unspecified; I50.9 Heart failure, unspecified; Z85.528 Personal history of other malignant neoplasm of kidney
CPT/HCPCS: 36415; 71045; 80053; 83880; 85025; 87637; 93005; 94640; 99285; J9999

== ENCOUNTER 2025-08-07 13:17 | Outpatient (CLI) | payer OTHER, MEDICAID, SELFPAY ==
--- NOTE | 2025-08-07 13:24 | XR_ITS ---
WS: [id number] DEXA (DUAL ENERGY X-RAY ABSORPTIOMETRY) Bone mineral density was performed using a [employer] machine. HISTORY: PERSONAL HISTORY OF OSTEOPOROSIS FRACTURE COMPARISON: None available. Lumbar spine BMD (L1-L4): 1.269 g/cm2 T score: 0.4 Z score: 0.9 Total hip BMD: Left: 0.866 g/cm2. T score: -1.6 Z score: -0.8 Right: 0.790 g/cm2. T score: -2.2 Z score: -1.4 10 year probability of a major osteoporotic fracture is 12.8%. XR/XR DEXA axial skeleton* [id number] IMPRESSION: OSTEOPENIA based upon the WHO classification for females.
== END 2025-08-07 13:18 | disposition home or self-care (01) ==
LOC: RAD 13:18
PROVIDERS: PCP Nurse Practitioner Family; Visit Provider Nurse Practitioner Family
DX: Z13.820 Encounter for screening for osteoporosis (principal); Z78.0 Asymptomatic menopausal state; M85.88 Other specified disorders of bone density and structure, other site
CPT/HCPCS: 77080

== ENCOUNTER → 2025-09-02 10:59 | Outpatient (BNVA) | payer OTHER, MEDICAID, SELFPAY | PROVIDERS: PCP Nurse Practitioner Family; Visit Provider Podiatrist Foot & Ankle Surgery | DX: E11.8 Type 2 diabetes mellitus with unspecified complications (principal); I73.9 Peripheral vascular disease, unspecified; Z89.421 Acquired absence of other right toe(s); N18.9 Chronic kidney disease, unspecified; Z89.411 Acquired absence of right great toe | CPT/HCPCS: 99213 ==